=== PATIENT | female | born 1955 | race Caucasian/White ===

== ENCOUNTER 2019-08-23 15:30 | Outpatient (RCR) | payer OTHER, SELFPAY ==
--- NOTE | 2019-07-27 13:22 | HP.PTEVAL_ITS ---
Patient's Visit Information MONIE RODRIGUEZ is a 63 year old F referred to Physical Therapy by Tre Tam DO with a diagnosis of L knee pain/ pain in L knee. Date of Evaluation: 07/27/19 Physical Therapist: TONJA Moctezuma - Visit Plan Frequency: 2x /Week Duration: 4 Weeks Plan: 2X/ week for 4 weeks for L hip and knee strengthening, L knee AROM, stairs and functional strength with HEP - Subjective Findings: Pt saw Dr Wright and he said that she has a torn meniscus and said to come to PT. She has limped through since April. She reports taht she feels the same now as she did in April. It hurts with walking, stairs, crossing knee. It is swollen all the time. He gave her an injection and it went down but only for a week or so. She is having lateral knee pain now and it used to medial knee pain. He was talking [address] surgery if it does not get better. Rolling over in bed hurts and sleeping with one knee on top of another increases pain. Balance is good. She orig hurt herself turning quick and knee twisted. - Pain L knee pain Pain Intensity (Out of 10): 3 - Objective Gait: Walk with a normal gait pattern. L knee AROM:-3 degrees to 111 degrees L knee flexion. R knee AROM: -1 degree to 139 degrees. LE MMT: B hip abd 4/5, B hip flex 4-/5, B hip ext 4/5. Pt is able to walk on heels and toes with slight increase pain in her R knee. Palpation: tender over the lateral aspect of the L knee above the joint line near the top of the L knee cap. Stairs: up and down recip with some difficulty ascending the stairs and slow quick to get off the L leg descending the stairs wtih a rail. Girth measurements: R 34.1, 37.5, 40.5 and L 35, 38.1, 40.2 - Goals Goal 1:: I HEP and H&W routine Goal Time Frame: 4-6 Weeks Goal 2:: Increase L knee AROM 0-120 degress Goal Time Frame: 4-6 Weeks Goal 3:: Be able to go up and down the stairs recip with 1 hand rail with a smooth pattern - Rehabilitation Potential Rehabilitation Potential: Good - Anticipated Interventions Patient/Client Instruction: Educate patient on: Condition, Plan of Care For the Purpose of:: To decrease pain, To decrease swelling/inflammation, To increase ROM, To improve nutrient delivery to tissue, To improve muscle performance and motor function, To improve ability to perform ADL's, To increase tolerance to activity/condition/position, To improve performance and independence with ADL's, To decrease level of supervision to perform tasks, To improve ability of physical actions for home/community/work/leisure, To increase flexibility/ROM Therapeutic Exercise to Include: Strength training, Balance training, Postural training, Flexibilty training, Gait and locomotor training, Passive ROM, Active ROM For the Purpose of:: To decrease pain, To decrease swelling/inflammation, To increase ROM, To improve nutrient delivery to tissue, To improve muscle performance and motor function, To improve ability to perform ADL's, To improve performance and independence with ADL's, To decrease level of supervision to perform tasks, To improve ability of physical actions for home/community/work/leisure, To improve gait and locomotor functions, To improve health of tissue, To decrease soft tissue restriction, To increase fl exibility/ROM, To improve balance IF ES: Yes Cryotherapy (ice pack, ice massage): Yes Thermo therapy (hot pack): Yes Ultrasound (thermal/non thermal): Yes For the Purpose of:: To decrease pain, To decrease swelling/inflammation, To increase ROM, To improve nutrient delivery to tissue Thank you for the opportunity to evaluate your patient. For Medicare and Medicare HMO plans, please review the plan of care and approve it. It will need to be FAXED BACK to us at [phone] for Medicare purposes. For Medicare only, by signing this I certify the plan of care. Please let me know if there are questions or concerns regarding this plan of care. Physician Signature: Date:
--- NOTE | 2019-08-23 16:01 | HP.PTDCSUM ---
HP - PT D/C Summary It has been my pleasure to treat MONIE RODRIGUEZ under orders from Tre Tam DO, for the diagnosis of L knee pain/ pain in L knee for a total of 10 visit(s). Discharge Date: 08/23/19 Please see the following information for a summary of their discharge status. - Subjective Subjective: Pt reports that the last 3 days have been the worst. She is tired of being pain. It felt a little painful when she left PT. Climbing the stairs is the worst. She reports that she was lying on the couch this morning and she turned her leg and it grabbed her. She was hoping that PT would fix it. She thinks that it is time to get an MRI or see the Dr again. Her knee is pretty tight with swelling... Just has been doing her ususal activities. - Pain L knee pain Pain Intensity (Out of 10): 3 - Overall Improvement % Improvement: 0 - Objective Objective/Function: Re-eval: discussed going back to Dr and possible MRI as pt is no better and very frustrated. L knee AROM 130 degrees to 0 degrees extension. Stairs: decreased ability to go down stairs leading with the R leg and decreased bend with the R with pain. - Goals Goal 1:: I HEP and H&W routine Goal Progress: Goal Met Goal 2:: Increase L knee AROM 0-120 degress Goal Progress: Goal Met Goal 3:: Be able to go up and down the stairs recip with 1 hand rail with a smooth pattern Goal Progress: Not Progressing - Plan Plan: DC PT back to physician for possible MRI and physician reassessment - D/C Information Discharge Comments: DC PT If there are questions or concerns regarding this patient's physical therapy, please feel free to call me at [phone]. Thank you for the referral of this patient. Sincerely, Emily Lujan, MPT
== END 2019-08-23 19:00 | disposition home or self-care (01) ==
LOC: PT 15:30
PROVIDERS: Family Provider Family Medicine; PCP Family Medicine; Referring Provider Family Medicine; Visit Provider Family Medicine
DX: M25.562 Pain in left knee (principal)
CPT/HCPCS: 97110; 97161; 97164

== ENCOUNTER 2021-06-16 21:38 | Emergency (ER) | payer OTHER, SELFPAY ==
[2021-06-16 21:39] VITALS: BP 187/99; PULSE 85; RESP 15; TEMP 36.6; O2SAT 98; BMI 25.5
[2021-06-16 23:48] VITALS: O2SAT 97
--- NOTE | 2021-06-16 23:49 | EDS_ITS ---
HPI History of Present Illness Chief Complaint: Hypertension Narrative Narrative: 64-year-old female presenting with elevated blood pressure. She states she noted it was elevated at home. She took her lisinopril 10 mg before coming to the ER. She takes 10 mg p.o. twice daily. She has not had any recent changes to this. She states she does have stress in her life and she notes that 2 people have just left the hospital that were close to her. In addition to this she has developed sinus infection symptoms she believes. She states she gets this every year about the same time. She does not have a headache, dizziness, lightheadedness, change in vision. She denies chest pain, pa lpitations, shortness of breath. She is not had fever or chills. Patient states he is eating and drinking normally. She make normal urine and stool [facility] Medical History Hip replacement planned HTN (hypertension) Home Medications amoxicillin-pot clavulanate [Augmentin] 1 tab PO BID #20 tab 06/16/21 [Rx Last Taken Unknown] ergocalciferol (vitamin D2) 06/16/21 [History Last Taken Unknown] lisinopril 10 mg PO BID 06/16/21 [History Last Taken Unknown] meloxicam 7.5 mg PO DAILY 06/16/21 [History Last Taken Unknown] Allergy/AdvReac Type Severity Reaction Status Date / Time aspirin [From Norgesic] AdvReac Anaphylaxis Verified 06/16/21 21:44 caffeine [From Norgesic] AdvReac Anaphylaxis Verified 06/16/21 21:44 naproxen [From Aleve] AdvReac Anaphylaxis Verified 06/16/21 21:44 orphenadrine [From Norgesic] AdvReac Anaphylaxis Verified 06/16/21 21:44 Social History Smoking Status: Never smoker ROS ROS ED Constitutional Constitutional ED: Denies chills, fever(s) or sweats Eyes Eyes: Denies blurry vision or change in vision ENT ENT ED: Reports nasal congestion; Denies ear pain or sore throat Cardiovascular Cardiovascular: Denies chest pain, palpitations or racing heartbeat Respiratory/Chest Respiratory/Chest: Denies cough, dyspnea or sputum Gastrointestinal Gastrointestinal: Denies abdominal pain, constipation, diarrhea, nausea or vomiting Genitourinary Genitourinary ED: Denies dysuria, hematuria or urinary frequency Musculoskeletal Musculoskeletal: Denies arthralgias, myalgias or neck pain Integumentary Denies abscess, Abrasions or rash Neurologic Neurologic: Denies headache(s), paresthesias or weakness Psychiatric Psychiatric: Denies anxiety, depression, suicidal ideation or suicidal thoughts Endocrine Endocrinology: Denies polydipsia or polyuria EXAM Physical Exam Const Vital Signs: 06/16/21 21:39 06/16/21 21:57 06/16/21 23:48 Temperature 97.9 F Temperature Source Temporal Pulse Rate 85 Respiratory Rate 15 Respiratory Effort Normal Non-Labored Respiratory Pattern Normal Blood Pressure 187/99 H Blood Pressure Mean 128 Pulse Ox 98 97 Oxygen Delivery Method Room Air Room Air Positive well nourished and alert General Appearance ED: Negative for pallor HEENT Reports normocephalic, head/scalp atraumatic and moist mucous membranes Eyes PERRL and EOMs intact bilaterally Resp normal respiratory effort Effort and Inspection: able to speak in complete sentences Cardio regular rate Narrative: Deferred Neuro oriented x3 and CN's II-XII intact bilaterally Sensorium / Orientation: alert Psych mental status grossly normal and thought process normal Appearance: grossly normal Attitude: No agitated Skin no rashes or lesions noted General Skin Exam: Negative for jaundice or pallor MDM MDM MDM Narrative Medical decision making narrative: Patient presenting with elevated blood pressure. Other than some sinus congestion she does not have any severe symptoms of an elevated blood pressure. She does have stressors in her life which could be contributing to her blood pressure. Is also possible that her sinus congestion could be doing this. She is not taking any oral cough or cold medicine. She has been using Afrin which could be contributing to her blood pressure as well. Since she is not having severe symptoms I did recommend that she double her dose of lisinopril tonight and recheck her blood pressures in the morning and keep a diary of her blood pressures. She states that she currently takes her lisinopril twice daily because 1 dose a day does not seem to control her blood pressures as well. If her blood pressures are elevated in the evening tomorrow when she checks her blood pressure she likely will need to double her dose of medication. I also did speak with her about her sinus congestion and she does not want to be tested for COVID-19. She is not have any severe symptoms from a viral/respiratory standpoint either. I did cemetery counselor her that 2 d ays of symptoms would not warrant antibiotics. She was concerned that over the weekend this might worsen.. I provided her with a [id number] prescription for Augmentin in case her symptoms should worsen and she is lost to follow-up with her primary care physician. After my initial evaluation the patient did tell nursing staff that she was upset because we did not do anything other than check her blood pressure. I did return to the room and apologized to her. I did reexplain again that she is not having severe symptoms of her elevated blood pressure and that normal course of action would be to increase her blood pressure medicine and monitor it to make sure it is going down. Impression: 1. Elevated blood pressure established?[id number] 2. Sinusitis Discharge Plan Triage Chief Complaint: Hypertension ED Provider: Lior Carter Dx/Rx/DC Orders Instructions: ED Hypertension, Established, ED Sinusitis (Antibiotic Treatment) Prescriptions: New amoxicillin-pot clavulanate [Augmentin] 875-125 mg tablet 1 tab PO BID Qty: 20 RF: 0 No Action meloxicam 7.5 mg Tablet 7.5 mg PO DAILY RF: 0 lisinopril 10 mg Tablet 10 mg PO BID RF: 0 ergocalciferol (vitamin D2) 1,250 mcg (50,000 unit) capsule RF: 0 Primary Care Provider: Tre Tam Referrals: Tre Tam DO [Primary Care Provider] - Disposition Disposition: Home, Self Care
[2021-06-16 23:54] VITALS: BP 184/99
--- NOTE | 2021-06-16 23:54 | ED.RN ---
pt voiced being upset with more testing not being done while in the ED. spoke with Dr. Carter. He returned to room to talk with patient and provide education and reassurance. This RN spent time listening to patient's concerns. Patient also okay with RN reaching out to Patient Advocate about her interaction with the physician.
== END 2021-06-17 00:09 | disposition home or self-care (01) ==
LOC: ED 23:04
PROVIDERS: Emergency Provider Student in an Organized Health Care Education/Training Program; PCP Family Medicine
DX: I10 Essential (primary) hypertension (principal); J32.9 Chronic sinusitis, unspecified; Z79.1 Long term (current) use of non-steroidal anti-inflammatories (NSAID); Z79.82 Long term (current) use of aspirin
CPT/HCPCS: 99282

== ENCOUNTER 2022-01-07 16:46 | Outpatient (RCR) | payer OTHER, SELFPAY ==
--- NOTE | 2022-01-08 08:45 | HP.PTEVAL_ITS ---
Patient's Visit Information MONIE RODRIGUEZ is a 66 year old F referred to Physical Therapy by RAMON DURAN with a diagnosis of R hip bursitis. Date of Evaluation: 01/07/22 Physical Therapist: Pete Cote, PT, ATC - Visit Plan Frequency: 1-2x /Week Duration: 1 Week Plan: Pt was issued and reviewed HEP of R LE stretches for piriformis, hamstrings, hip flexors, and IT band. Pt to follow up or discharge with pt in one week. - Subjective Pt reports her R hip has been sore for the past 3 weeks. Pt reports she was visiting her daughter in [place] at that time and had been performing an increased walking load. Pt reports this pain causes her to have difficulty with car transfers and stair negotiation. Pt reports she had a R DARIO performed in 2017, and notes she had this pain in the past which PT did help with. Pt notes no tingling or numbness in LE's at this time. Pt reports she just finished a steroid pack that she reports did not help with her pains. Pt currently rates her pain at 5/10, but notes her pain increases to 9/10 when her hip catches - Pain R hip Pain Intensity (Out of 10): 5 Pain Intensity Range: 9 - Objective Neuro: B LE sensation is WNL to light touch. B patellar reflex= 2/3. Palpation: Pt is really sore on the anterior region of R hip. ROM: B LE's are WFL when compared bilaterally. MMT: R hip flex, ER, and add 4-/5. All other B LE MMT is 5/5 throughout. Flexibility: Pt is moderately limited with IT band, HS's, hip flexors, and piriformis muscles - Balance/Special Test Scores Lower Extremity Functional Score: 38 - Goals Goal 1:: Decrease R hip pain x 50% to aid with sit to stand transfers Goal Time Frame: 2-4 Weeks Goal 2:: I with HEP of LE stretching Goal Time Frame: 2-4 Weeks - Rehabilitation Potential Physical Therapy Diagnosis: Pt has R hip pain and difficulty with IADL's secondary to limited flexibility in R hip Rehabilitation Potential: Good - Anticipated Interventions Patient/Client Instruction: Educate patient on: Condition, Plan of Care For the Purpose of:: To improve self management Therapeutic Exercise to Include: Flexibilty training, Dynamic Lumbar Stabilization For the Purpose of:: To decrease pain, To improve muscle performance and motor function Manual Therapy Techniques to Include: Soft tissue mobilization For the Purpose of:: To decrease pain, To improve muscle performance and motor function Thank you for the opportunity to evaluate your patient. For Medicare and Medicare HMO plans, please review the plan of care and approve it. It will need to be FAXED BACK to us at [phone] for Medicare purposes. For Medicare only, by signing this I certify the plan of care. Please let me know if there are questions or concerns regarding this plan of care. Physician Signature: Date:
--- NOTE | 2022-03-27 12:37 | HP.PT.NRP ---
MONIE RODRIGUEZ was seen in my office for initial evaluation on 01/07/22. The following Plan of Care was established for this patient: Initial Frequency: 1-2x /Week Initial Duration: 1 Week Patient/Client Instruction: Educate patient on: Condition, Plan of Care For the Purpose of:: To improve self management Therapeutic Exercise to Include: Flexibilty training, Dynamic Lumbar Stabilization For the Purpose of:: To decrease pain, To improve muscle performance and motor function Manual Therapy Techniques to Include: Soft tissue mobilization For the Purpose of:: To decrease pain, To improve muscle performance and motor function This patient was last seen in our office . Pertinent comments regarding their Physical therapy will appear below: Pt was treated for R hip pain for 1 PT visits through the date of 01/07/22. Pt has not returned through todays date and is discontinued at this time. At this point I will be discontinuing this patient from physical therapy. I would be happy to see this patient again in the future if found appropriate by the physician. Thank you! Pete Cote, PT, ATC Balance/Gait/Functional tests - Balance/Special Test Scores Lower Extremity Functional Score: 38
== END 2022-01-07 19:00 | disposition home or self-care (01) ==
LOC: PT 16:46
PROVIDERS: PCP Family Medicine; Referring Provider Physician Assistant; Visit Provider Physician Assistant
DX: M70.71 Other bursitis of hip, right hip (principal); M70.61 Trochanteric bursitis, right hip
CPT/HCPCS: 97110; 97161

== ENCOUNTER 2022-03-28 10:00 | Outpatient (RCR) | payer OTHER, SELFPAY ==
--- NOTE | 2022-02-21 17:08 | HP.PTEVAL_ITS ---
Patient's Visit Information MONIE RODRIGUEZ is a 66 year old F referred to Physical Therapy by RENE WOLF with a diagnosis of spinal stenosis. Date of Evaluation: 02/21/22 Physical Therapist: Pete Cote, PT, ATC - Visit Plan Frequency: 1x/Week Duration: 2 Weeks Plan: Issue and instruct pt on HEP of core strengthening in 1-2 visits - Subjective Pt reports she was on meloxicam for years, and reports she was taken off of the medicine approximately 2 mos ago. Pt reports that is when she began to notice LBP. Pt reports she had x rays taken which revealed she has spinal stenosis at this time. Pt reports sitting and bending forwasrds increases her pain. Pt reports she is limited with house chores secondary to pain. Pt also notes she is limited with yard work at this time as well secondary to pain. Pt denies tingling or numbness in R LE at this time. Pt reports no sleep difficulty secondary to pain. Pt reports standing up straight helps to decrease her pain. Pt is retired at this time. 3/10 pain while sitting here in the clinic, 5/10 pain at worst (when she is bending over). - Pain LBP Pain Intensity (Out of 10): 3 Pain Intensity Range: 5 - Objective Neuro: B LE sensation is WNL to light touch. B patellar reflex= 2/3. ROM: L/S is minimally limited with ext. All other ranges are rated at WFL. MMT: B LE's are 5/5 throughout when compared bilaterally. Repeated movements: RFIS 10x3 increased pain. ROXIE 10x3 increased pain. prone prop on elbows 30 sec x 3 increased pain. Gait: Pt displays sig valgus with forward lunge indicating weak core musculature - Balance/Special Test Scores Oswestry Low Back Score: 11 - Goals Goal 1:: Pt will be I with HEP of core strengthening Goal Time Frame: 2 Weeks - Rehabilitation Potential Physical Therapy Diagnosis: Pt has LBP and difficulty with prolonged sitting secondary to Rehabilitation Potential: Good - Anticipated Interventions Patient/Client Instruction: Educate patient on: Condition, Plan of Care For the Purpose of:: To improve self management Therapeutic Exercise to Include: Strength training, Endurance training, Postural training, Dynamic Lumbar Stabilization For the Purpose of:: To decrease pain, To improve muscle performance and motor function Thank you for the opportunity to evaluate your patient. For Medicare and Medicare HMO plans, please review the plan of care and approve it. It will need to be FAXED BACK to us at [phone] for Medicare purposes. For Medicare only, by signing this I certify the plan of care. Please let me know if there are questions or concerns regarding this plan of care. Physician Signature: Date:
--- NOTE | 2022-06-18 14:44 | HP.PT.NRP ---
MONIE RODRIGUEZ was seen in my office for initial evaluation on 02/21/22. The following Plan of Care was established for this patient: Initial Frequency: 1x/Week Initial Duration: 2 Weeks Patient/Client Instruction: Educate patient on: Condition, Plan of Care For the Purpose of:: To improve self management Therapeutic Exercise to Include: Strength training, Endurance training, Postural training, Dynamic Lumbar Stabilization For the Purpose of:: To decrease pain, To improve muscle performance and motor function This patient was last seen in our office . Pertinent comments regarding their Physical therapy will appear below: Pt was treated for spinal stenosis for 4 PT visits through the date of 03/28/22. Pt has not returned through this date and is discontinued at this time. At this point I will be discontinuing this patient from physical therapy. I would be happy to see this patient again in the future if found appropriate by the physician. Thank you! Pete Cote, PT, ATC Balance/Gait/Functional tests - Balance/Special Test Scores Oswestry Low Back Score: 11
== END 2022-03-28 19:00 | disposition home or self-care (01) ==
LOC: PT 10:00
PROVIDERS: PCP Family Medicine
DX: M48.061 Spinal stenosis, lumbar region without neurogenic claudication (principal)
CPT/HCPCS: 97110; 97161

== ENCOUNTER 2022-11-28 13:00 | Outpatient (RCR) | payer MEDICARE, OTHER, SELFPAY ==
--- NOTE | 2022-10-03 10:21 | HP.PTEVAL ---
Patient's Visit Information MONIE RODRIGUEZ is a 66 year old F referred to Physical Therapy by Dr. Tina Whitley DO with a diagnosis of RT shoulder and neck pain. Date of Evaluation: 10/03/22 Physical Therapist: Pete Cote, PT, ATC - Visit Plan Frequency: 2-3x /Week Duration: 4 Weeks Plan: RRIS, postural edu, c/s DTR, scap stab ex's, rot cuff strengthening, UBE, and HEP - Subjective Pt reports she has had neck and R UE pain for several months. Pt reports she has sleep difficulty at this time secondary to pain. Pt reports for the last month or 2, her R shoulder has become sore and she is unable to lift her arm over her head. Pt reports she has sig difficulty with attempting to don/doff her coat. Pt notes she is R hand dominant. Pt reports she has pain in the right shoulder that will radiate to the lateral aspect of her L humerous near the deltoid insertion. Pt denies R UE tingling or numbness, but reports she did experience tingling and numbness a couple months ago on 2 separate episodes. Pt has had no recent diagnostic tests. 1/10 pain while sitting here in the clinic, 8/10 pain in the R shoulder at worst. - Pain R shoulder Pain Intensity (Out of 10): 0 Pain Intensity Range: 8 neck Pain Intensity (Out of 10): 0 Pain Intensity Range: 9 - Objective Neuro: B UE sensation is WNL to light touch. B bicipital reflex= 2/3. Palpation: point tender along the distribution of the supraspinatus. No obvious deformity. ROM: R shoulder flex= 120, abd= 140, ER= 65, IR; L shoulder flex= 150, abd= 150, ER= 60, IR WNL. MMT: R shoulder flex= 2, abd= 0, ER= 3, IR= 17 #F; L shoulder flex= 11, abd= 6.5, ER= 15, IR= 22 #F. Repeated movements: RPIS 10x2 NE, RRIS 10x2 resulted in full ROM to R shoulder. Special tests: POs empty can, pos HK - Balance/Special Test Scores Oswestry Neck Score: 17 - Goals Goal 1:: Decrease neck and R shoulder pain x 50% to aid with sleep Goal Time Frame: 4-6 Weeks Goal 2:: Increase R shoulder strength x 5-10 #F to aid with IADL's Goal Time Frame: 4-6 Weeks Goal 3:: Increase R shoulder ROM flex and abd x 20vith oerhead activity Goal Time Frame: 4-6 Weeks Goal 4:: I with HEP - Rehabilitation Potential Physical Therapy Diagnosis: Pt has R shoulder pain, weakness, and limited ROM secondary to rot cuff syndrome and pos c/s derrangement Rehabilitation Potential: Good - Anticipated Interventions Patient/Client Instruction: Educate patient on: Condition, Plan of Care For the Purpose of:: To improve self management Therapeutic Exercise to Include: Strength training, Endurance training, Body mechanics, Postural training, Dynamic Lumbar Stabilization, William Exercises, Scapular Strength/Stabilization For the Purpose of:: To decrease pain, To increase ROM, To improve muscle performance and motor function Cryotherapy (ice pack, ice massage): Yes Thermo therapy (hot pack): Yes For the Purpose of:: To decrease pain Thank you for the opportunity to evaluate your patient. For Medicare and Medicare HMO plans, please review the plan of care and approve it. It will need to be FAXED BACK to us at [phone] for Medicare purposes. For Medicare only, by signing this I certify the plan of care. Please let me know if there are questions or concerns regarding this plan of care. Physician Signature: Date:
--- NOTE | 2023-01-15 08:44 | HP.PT.NRP ---
Patient Information Patient Information: MONIE RODRIGUEZ was seen in my office for initial evaluation on 10/03/22. The following Plan of Care was established for this patient: POC Established Initial Frequency: 2-3x /Week Initial Duration: 4 Weeks Anticipated Interventions Patient/Client Instruction: Educate patient on: Condition and Plan of Care For the Purpose of:: To improve self management Therapeutic Exercise to Include: Strength training, Endurance training, Body mechanics, Postural training, Dynamic Lumbar Stabilization, William Exercises and Scapular Strength/Stabilization For the Purpose of:: To decrease pain, To increase ROM and To improve muscle performance and motor function Cryotherapy (ice pack, ice massage): Yes Thermo therapy (hot pack): Yes For the Purpose of:: To decrease pain Last Seen Last Seen: This patient was last seen in our office . Pertinent comments regarding their Physical therapy will appear below: Pt was treated for 8 PT visits for R shoulder pain through the date of 11/28/22. Pt has not returned through todays date and is discontinued at this time. At this point I will be discontinuing this patient from physical therapy. I would be happy to see this patient again in the future if found appropriate by the physician. Thank you! Pete Cote, PT, ATC Balance/Gait/Functional tests Balance/Special Test Scores Oswestry Neck Score: 17
== END 2022-11-28 19:00 | disposition home or self-care (01) ==
LOC: PT 13:00
PROVIDERS: PCP Family Medicine; Referring Provider Family Medicine; Visit Provider Family Medicine
DX: M54.2 Cervicalgia (principal); M25.511 Pain in right shoulder; M79.621 Pain in right upper arm
CPT/HCPCS: 97110; 97140; 97161; 97530

== ENCOUNTER 2024-03-02 10:00 | Outpatient (RCR) | payer MEDICARE, OTHER, SELFPAY ==
--- NOTE | 2024-01-27 08:52 | HP.PTEVAL_ITS ---
Patient's Visit Information Visit Information Visit Information: MONIE RODRIGUEZ is a 68 year old F referred to Physical Therapy by Dr. Tre Tam DO with a diagnosis of R sided neck pain. Date of Evaluation: 01/08/24 Physical Therapist: Jordi Cardoso DPT Visit Plan Frequency: 2x /Week Duration: 4 Weeks Plan: Start with cervical ROM, I gave her SNAGs into extension and rotation at eval. Consider DN to R UT or US to same region. Add in lateral and PA glides and rotation glides to assist with restoring ROM. Can add in soft tissue to R UT as well to diminish muscle tension. Subjective Subjective: Pt. is here today for her initial evaluation with neck pain. pt. reports having increased R sided neck pain for a few months now. She reports no mech of injury, but has had increased symptoms with looking over her shoulders, mostly to her R. Pt. has done some stretching with minimal relief. No chiro at this point in time. Pt. reports pain at R side of mid cervical spine and into her levator scapulae region. No N/T noted. Pt. does have some increased symptoms with sleeping, but mostly with cervical rotation. Pt. reports no radicular symptoms into UEs. Pt. reports no myotomal weakness either. Pt. is hopeful to reduce symptoms in order to increase her ease with driving and all ADLs. Pain R side of cervical spine: Pain Intensity (Out of 10): 3 Pain Intensity Range: 2 and 8 Objective Objective: POSTURE: pt. has fairly normal posture. Slight FH posture noted. Normal shoulder heights. PALPATION: Pt. has marked tenderness at C3-C5 R erector spinae at insertion. NEURO: Pt. has normal sensation in BUEs. Pt. has normal DTR of BUEs. No radicular symptoms noted. ROM: Cervical spine: flexion nil loss NE, ext min loss increase NW, Rotation R mod loss increase NW, rotation L min loss increase nW, SB min loss bilat mild increase NW. Thoracic spine mild extension loss but not much and no pain. Normal shoulder ROM without increase in symptoms. MMT: 5/5 throughout cervical spine and B shoulders without increase in symptoms. Pt. has signs and symptoms consistent with both some R sided muscular tension and possible radicular symptoms, but only into R side of UT. No major issues on L side of cervical spine. Special Tests C/S Radiculapathy - Left Upper limb tension test: Negative C/S Radiculapathy - Right Upper limb tension test: Negative C/S Radiculapathy - Left Spurlings: Negative C/S Radiculapathy - Right Spurlings: Negative C/S Radiculapathy - Left Cervical distraction: Negative C/S Radiculapathy - Right Cervical distraction: Negative C/S Radiculapathy - Left Relief test: Negative C/S Radiculapathy - Right Relief test: Negative C/S Radiculapathy - Valsalva: Negative Sharp Chan: Negative Vertebral Artery Test: Negative Alar Ligament Test: Negative Cervical Sitting: Protrusion - Mechanical Response: No effect Cervical Sitting: Protrusion - Symptoms During Testing: No effect Cervical Sitting: Protrusion - Symptoms After Testing: No effect Cervical Sitting: Retraction - Mechanical Response: No effect Cervical Sitting: Retraction - Symptoms During Testing: Increases Cervical Sitting: Retraction - Symptoms After Testing: No worse Cervical Sitting: Retraction-Extension - Mechanical Response: No effect Cerv Sitting: Retraction-Extension - Symptoms During Testing: Increases Cerv Sitting: Retraction-Extension - Symptoms After Testing: No worse Cervical Sitting: Sidebend Right - Mechanical Response: No effect Cervical Sitting: Sidebend Right - Symptoms During Testing: No effect Cervical Sitting: Sidebend Right - Symptoms After Testing: No effect Cervical Sitting: Sidebend Left - Mechanical Response: No effect Cervical Sitting: Sidebend Left - Symptoms During Testing: Increases Cervical Sitting: Sidebend Left - Symptoms After Testing: No worse Cervical Sitting: Rotation Right - Mechanical Response: No effect Cervical Sitting: Rotation Right - Symptoms During Testing: Increases Cervical Sitting: Rotation Right - Symptoms After Testing: No worse Cervical Sitting: Rotation Left - Mechanical Response: No effect Cervical Sitting: Rotation Left - Symptoms During Testing: No effect Cervical Sitting: Rotation Left - Symptoms After Testing: No effect Cervical Sitting: Flexion - Mechanical Response: No effect Cervical Sitting: Flexion - Symptoms During Testing: No effect Cervical Sitting: Flexion - Symptoms After Testing: No effect Balance/Special Test Scores Oswestry Neck Score: 20 Goals Goal 1:: LTG: Pt. to be I with HEP. Goal Time Frame: 4-6 Weeks Goal 2:: STG: pt. to have increased cervical ROM in all directions with out increase in symptoms. Goal Time Frame: 2 Weeks Goal 3:: LTG: Pt. to be able to drive without increase in R cervical spine pain. Goal Time Frame: 4-6 Weeks Goal 4:: LTG: Pt. to sleep without increase in symptoms. Goal Time Frame: 4-6 Weeks Rehabilitation Potential Physical Therapy Diagnosis: Pt. has signs and symptoms consistent with R sided cervical spine issues. Pt. has the greatest pain with R cervical rotation resulting in R sided neck pain. Pt. did not have nay radicular symptoms down her R arm at all, but was very sore with cervical rotation. Pt. would benefit from PT to address her muscle tension and limited ROM with cervical rotation and extension. Rehabilitation Potential: Good Anticipated Interventions Patient/Client Instruction: Educate patient on: Condition, Plan of Care, Risk Factors and Benefits of Fitness Program For the Purpose of:: To improve decision making, To facilitate caregiver knowle dge, To improve self management, To prevent re-injury and To improve ability to perform tasks related to life management Therapeutic Exercise to Include: Strength training, Power training, Postural training, Flexibilty training, Passive ROM, Active ROM, William Exercises and Scapular Strength/Stabilization For the Purpose of:: To decrease pain, To increase ROM, To increase oxygenation perfusion, To improve muscle performance and motor function, To improve ability to perform ADL's, To increase tolerance to activity/condition/position, To improve health of tissue, To decrease soft tissue restriction and To increase flexibility/ROM Manual Therapy Techniques to Include: Mobilization, Functional dry needling and Soft tissue mobilization For the Purpose of:: To decrease pain, To decrease swelling/inflammation, To increase ROM, To improve nutrient delivery to tissue and To increase oxygenation perfusion Ultrasound (thermal/non thermal): Yes For the Purpose of:: To decrease pain, To decrease swelling/inflammation, To increase ROM, To improve nutrient delivery to tissue and To increase oxygenation perfusion Text: Thank you for the opportunity to evaluate your patient. For Medicare and Medicare HMO plans, please review the plan of care and approve it. It will need to be FAXED BACK to us at [phone] for Medicare purposes. For Medicare only, by signing this I certify the plan of care. Please let me know if there are questions or concerns regarding this plan of care. Physician Signature: Date:
--- NOTE | 2024-03-02 11:08 | HP.PTDCSUM ---
Discharge Summary D/C summary: It has been my pleasure to treat MONIE RODRIGUEZ referred by Dr. Tre Tam DO, with the diagnosis of R sided neck pain for a total of 10 visit(s). Discharge Date: Please see the following information for a summary of their discharge status. Subjective Subjective: I am no better at this time Pain R side of cervical spine: Pain Intensity (Out of 10): 5 Overall Improvement % Improvement: 0 Objective Objective/Function: Neck pain is relatively unchanged. Pt is still limited with driving secondary to pain Pt is I with HEP at this time Pt is not progressing at this time Goals Goal 1:: LTG: Pt. to be I with HEP. Goal Progress: Goal Met Goal 2:: STG: pt. to have increased cervical ROM in all directions with out increase in symptoms. Goal Progress: Not Progressing Goal 3:: LTG: Pt. to be able to drive without increase in R cervical spine pain. Goal Progress: Not Progressing Goal 4:: LTG: Pt. to sleep without increase in symptoms. Goal Progress: Goal Met Plan Plan: Discontinue secondary to lack of progress, recommend pt to RTD D/C Information d/c sentence: If there are questions or concerns regarding this patient's physical therapy, please feel free to call me at [phone]. Thank you for the referral of this patient. Sincerely, Pete Cote, PT, ATC Balance/Gait/Functional tests Balance/Special Test Scores Oswestry Neck Score: 20 Improvement % Improvement: 0
== END 2024-03-02 13:17 | disposition home or self-care (01) ==
LOC: PT 10:00
PROVIDERS: PCP Family Medicine; Referring Provider Family Medicine; Visit Provider Family Medicine
DX: M54.2 Cervicalgia (principal)
CPT/HCPCS: 97035; 97110; 97140; 97161; 97530

== ENCOUNTER → 2024-03-27 | Outpatient (CLI) | payer OTHER, MEDICARE, SELFPAY ==
--- NOTE | 2024-03-27 09:03 | MRI_ITS ---
STUDY: MRI CERVICAL SPINE WITHOUT CONTRAST REASON FOR EXAM: Female, 68 years old. 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 COMPARISON: None FINDINGS: Normal foramen magnum and brainstem-cervical cord junction. Normal craniovertebral junction. Normal anterior atlantoaxial articulation. Normal odontoid process. Mild cervical kyphosis at the C4-C5 disc space level. No recent or remote fractures of the cervical spine. Normal vertebral body height. Multilevel asymmetric degenerative facet arthropathy. C2-3: Normal endplates. Normal disc height, signal and morphology. Normal central canal and intervertebral neural foramina. C3-4: Normal endplates. Normal disc height, signal and morphology. Normal central canal and intervertebral neural foramina. C4-5: Normal endplates. Minimal disc space height narrowing. Small osteophytes arising from the uncovertebral joints. Normal central canal and intervertebral neuroforamina. C5-6: Normal endplates. Mild disc space height narrowing. Normal central canal and intervertebral neuroforamina. C6-7: Minimal Modic type I-II degenerative vertebral marrow edema underneath the C6 inferior endplate. Small shallow Schmorl''s node in the C7 superior endplate. Moderate disc space height narrowing. Minimal ventral extradural defect due to minimal posterior marginal spur. Normal central canal and intervertebral neuroforamina.] C7-T1: Normal endplates. Normal disc height, signal and morphology. Normal central canal and intervertebral neural foramina. T1-T2: (Sagittal only). Normal endplates. Normal disc height, signal and morphology. Normal central canal and intervertebral neuroforamina. T2-T3: (Sagittal only). Normal endplates. Normal disc height, signal and morphology. Normal central canal and intervertebral neuroforamina. Round right sided upper T3 benign vertebral body hemangioma. T3-T4: (Sagittal only). Normal endplates. Normal disc height. Minimal ventral extradural defect due to small posterior bulging annulus and right posterior marginal spur. Normal central canal and left intervertebral neuroforamen. Mild stenosis of the right intervertebral neuroforamen due to right posterior marginal spur. T4-T5: (Sagittal only). Normal endplates. Mild disc space height narrowing. Normal central canal and intervertebral neuroforamina. Normal cervical cord. Normal upper thoracic spinal cord. Normal included midline brainstem and cerebellum. Normal visualized soft tissue structures. MRI/Spine Cervical (Routine) IMPRESSION: 1. No MRI evidence of cervical extruded disc fragment or disc protrusion, cervical spinal stenosis or cervical nerve root displacement. 2. Normal cervical spinal cord. Electronically Signed: Bairon Graff MD at 11:39 EDT ,
== END | disposition home or self-care (01) ==
LOC: MRI 08:35
PROVIDERS: PCP Family Medicine; Referring Provider Family Medicine; Visit Provider Family Medicine
DX: M47.812 Spondylosis without myelopathy or radiculopathy, cervical region (principal)
CPT/HCPCS: 72141

== ENCOUNTER 2025-05-30 07:38 | Inpatient (IN) | payer MEDICARE, OTHER, SELFPAY ==
[2025-05-30] VITALS (8 sets, daily range): BP systolic 118–157; BP diastolic 66–102; PULSE 79–105; RESP 16–18; TEMP 36.9–37.2; O2SAT 96–100; BMI 27.8; BMI 26.4
--- NOTE | 2025-05-30 07:51 | CT_ITS ---
PROCEDURE: ABDOMEN/PELVIS W IV CONT ONLY 05/30/2025 REASON FOR EXAM: ABDOMINAL PAIN Pelvic and abdominal pain. TECHNIQUE: Procedure Code: [id number] Modality: CT Procedure: ABDOMEN/PELVIS W IV CONT ONLY Coronal and Sagittal reconstruction series were provided. CONTRAST: Isovue-300 VOLUME: 100 mL One or more dose reduction techniques were used (e.g., Automated exposure control, adjustment of the mA and/or kV according to patient size, use of iterative reconstruction technique. RADIATION DOSE SUMMARY: CTDlvol: 13.3 mGy DLP: 988.75 mGycm COMPARISON: None FINDINGS: Lung bases: Mild dependent atelectasis Liver: Diffuse fatty infiltration. Borderline hepatomegaly. Gallbladder: Unremarkable Spleen: Normal size. Pancreas: Normal size without evidence of mass surrounding inflammation or ductal dilation. Adrenals: Unremarkable Kidneys: 6 mm nonobstructive calculus in the lower pole calyx of the left kidney. No evidence of hydronephrosis. Bladder: Unremarkable Reproductive Organs: Unremarkable Bowel: Sigmoid colon diverticula with wall thickening and adjacent inflammatory changes. No evidence of perforation or abscess. Appendix: Unremarkable Lymph nodes: Unremarkable. Vasculature: Mild diffuse atherosclerotic calcifications are noted. Peritoneum / Retroperitoneum: Unremarkable Bones: Degenerative changes of the spine. Status post right hip replacement. CT/Abdomen/Pelvis W IV Cont ONLY IMPRESSION: Borderline hepatomegaly and fatty infiltration of the liver. Findings in keeping with the sigmoid diverticulitis with multiple sigmoid diver ticula and inflammatory changes surrounding the sigmoid colon and mesentery. No evidence of fluid collection at this time. Reading Location: [facility]
--- NOTE | 2025-05-30 07:54 | EX.ED.DYSGE1 ---
HPI History of Present Illness Chief Complaint: Abd Pain Narrative Narrative: Chief complaint and HPI: 69-year-old female with past medical history of HTN who presents for evaluation of abdominal pain. Patient states yesterday she had suprapubic abdominal pain and dysuria. Endorses symptomatic fever overnight. States this morning she woke up with worsening diffuse abdominal pain. She denies any history of diverticulitis. Denies any abdominal surgeries. Last ate yesterday. Not on blood thinners. She denies any nausea, vomiting, constipation, bloody bowel movements, vaginal bleeding. Review of systems: See HPI Medications: As listed on the chart Allergies: As listed on the chart PFSH: Per chart Vital signs: As listed on the chart. Reviewed. Physical exam: Gen: A&O Head: Normocephalic, atraumatic Eyes: No sclera icterus, conjunctiva clear ENT: Moist mucous membranes CV: RRR, no murmurs Resp: Lungs CTA BL, no w/r/c GI: Abd soft, non-distended, tender to palpation diffusely with voluntary guarding, no rebound or rigidity Musc: Full ROM, no deformity Skin: Warm, dry Psych: Cooperative, appropriate mood and affect PFSH PFSH Medical History Hip replacement planned HTN (hypertension) Home Medications ?Medication ?Instructions ?Recorded ?Last Taken ?Type ergocalciferol (vitamin D2) 1,250 1,250 mcg PO .COMPLEX 06/16/21 05/18/25 History mcg (50,000 unit) capsule acetaminophen 500 mg capsule 1,000 mg PO Q6H PRN fever or pain 05/30/25 05/29/25 History lisinopril 40 mg tablet 40 mg PO DAILY 05/30/25 05/29/25 History magnesium 200 mg tablet 200 mg PO DAILY 05/30/25 05/28/25 History Allergy/AdvReac Type Severity Reaction Status Date / Time aspirin (From Norgesic) AdvReac Anaphylaxis Verified 05/30/25 07:42 caffeine (From Norgesic) AdvReac Anaphylaxis Verified 05/30/25 07:42 naproxen (From Aleve) AdvReac Anaphylaxis Verified 05/30/25 07:42 orphenadrine (From Norgesic) AdvReac Anaphylaxis Verified 05/30/25 07:42 Social History Smoking Status: Never smoker EXAM Physical Exam Const Vital Signs: 05/30/25 07:39 05/30/25 09:38 05/30/25 11:00 Temperature 98.4 F Temperature Source Temporal Pulse Rate 105 H 81 87 Respiratory Rate 18 18 16 Blood Pressure 151/102 H 147/71 H Blood Pressure Mean 118 96 Pulse Ox 97 96 100 Oxygen Delivery Method Room Air Room Air MDM MDM MDM Narrative Medical decision making narrative: 69-year-old female with past medical history of HTN who presents for evaluation of abdominal pain. Patient states yesterday she had suprapubic abdominal pain and dysuria. Endorses symptomatic fever overnight. States this morning she woke up with worsening diffuse abdominal pain. See physical exam findings. Differential diagnosis includes but is not limited to UTI, pyelonephritis, urolithiasis, diverticulitis, appendicitis, pancreatitis. NS bolus, morphine, Zofran ordered for symptoms. Laboratory workup ordered including CT abdomen and pelvis. CBC without leukocytosis or anemia. CMP unremarkable. Lipase unremarkable. CT abdomen pelvis shows borderline hepatomegaly and fatty infiltration of liver. Findings in keeping with sigmoid diverticulitis with multiple sigmoid diverticuli and inflammatory changes surrounding the sigmoid colon and mesentery. No evidence of fluid collection at this time. UA positive for UTI. Urine culture sent. On reevaluation, patient still having abdominal pain. She still voluntarily guards with diffuse palpation. Concern is that patient will fail outpatient antibiotics therefore general surgery was consulted. Dr. Alexandre will evaluate the patient. Will give more pain medicine and IV Zosyn. Dr. Alexandre came to bedside and evaluate the patient. He will admit. Impression: 1. Acute uncomplicated diverticulitis 2. UTI Lab Data Labs: Laboratory Results - last 24 hr 05/30/25 05/30/25 07:58 08:53 WBC 10.6 RBC 4.09 L Hgb 12.3 Hct 35.9 L MCV 87.8 MCH 30.1 MCHC 34.3 RDW Std Deviation 42.2 RDW Coeff of Ron 13.2 Plt Count 188 MPV 8.7 Immature Gran % (Auto) 0.400 Neut % (Auto) 84.5 H Lymph % (Auto) 6.7 L [place] % (Auto) 7.5 Eos % (Auto) 0.5 Baso % (Auto) 0.4 Absolute Neuts (auto) 9.0 H Absolute Lymphs (auto) 0.71 L Nucleated RBC % 0 Sodium 139 Potassium 4.0 Chloride 103 Carbon Dioxide 26.1 Anion Gap 10 BUN 12 Creatinine 0.76 Estim Creat Clear Calc 79.63 Est GFR (MDRD) Non-Af 86 BUN/Creatinine Ratio 15.2 Glucose 152 H Calcium 9.5 Total Bilirubin 0.67 AST 13 ALT 11 Alkaline Phosphatase 93 Total Protein 7.1 Albumin 4.1 Globulin 3.1 Albumin/Globulin Ratio 1.3 Lipase 22 Urine Color Yellow Urine Clarity Clear Urine pH 7.0 Ur Specific [place] 1.010 Urine Protein 15 H Urine Glucose (UA) Normal Urine Ketones Negative Urine Occult Blood 10 H Urine Nitrite Negative Urine Bilirubin Negative Urine Urobilinogen Normal Ur Leukocyte Esterase 500 H Urine RBC 0 SEEN Urine WBC 10-25 SEEN Ur Squamous Epith Cells 5-10 SEEN Urine Bacteria 1+ Urine Mucus 0 SEEN Radiography Diagnostic Testing: Clinical Impression(s) from Imaging Studies Abdomen/Pelvis CT 05/30/25 07:51 IMPRESSION: Borderline hepatomegaly and fatty infiltration of the liver. Findings in keeping with the sigmoid diverticulitis with multiple sigmoid diverticula and inflammatory changes surrounding the sigmoid colon and mesentery. No evidence of fluid collection at this time. Reading Location: [id number] Discharge Plan Triage Chief Complaint: Abd Pain ED Provider: Ralph Marquez Dx/Rx/DC Orders Prescriptions: No Action ergocalciferol (vitamin D2) 1,250 mcg (50,000 unit) capsule 1,250 mcg PO .COMPLEX Rx Instructions: 1,250 mcg orally [id number]; every 2 weeks lisinopril 40 mg tablet 40 mg PO DAILY acetaminophen 500 mg capsule 1,000 mg PO Q6H PRN (Reason: fever or pain) magnesium 200 mg tablet 200 mg PO DAILY Primary Care Provider: Tre Tam Referrals: Tre Tam DO [Primary Care Provider, Family Practice] Print Language: Occitan
[2025-05-30 08:07] LABS: Hematocrit 35.9 % (37-47); Hemoglobin 12.3 g/dL (12.0-15.0); Immature Granulocytes Count 0.040 X10^3/uL (0.0-0.0); Mean Corp Hgb Conc 34.3 g/dL (32-36); Mean Corpuscular Volume 87.8 fL (81-99); Mean Platelet Vol. 8.7 fl (6.2-12.0); NRBC Flagged by Analyzer 0 % (0-5); Platelet Count 188 K/mm3 (150-450); RBC Distribution Width CV 13.2 % (11.6-14.6); RBC Distribution Width SD 42.2 fl (35.1-43.9); Red Blood Count 4.09 M/mm3 (4.2-5.4); White Blood Count 10.6 K/mm3 (4.4-11.0)
[2025-05-30] MEDS: 0.9% Normal Saline (1000mL) 1,000 ML 999 ML IV (08:11)
[2025-05-30 08:31] LABS: AST(SGOT) 13 U/L (<=31); Alanine Aminotransfer ALT/SGPT 11 U/L (<=34); Albumin, Serum 4.1 g/dL (3.4-4.8); Alkaline Phosphatase 93 U/L (35-104); Anion Gap 10 (5-15); BUN 12 mg/dL (4-19); BUN/Creat Ratio 15.2 RATIO (10-20); Calcium,Total 9.5 mg/dL (7.6-11.0); Carbon Dioxide 26.1 mmol/L (21.0-32.0); Chloride 103 mmol/L (98-108); Estimated Creatinine Clearance 79.63 ml/min (50-250); Globulin 3.1 g/dL (2.2-4.2); Glucose 152 mg/dL (70-99); Lipase 22 U/L (13-75); Potassium 4.0 mmol/L (3.3-5.1)
--- OUTSIDE RECORDS SUMMARY | 2025-05-30 08:37 | XMS RPT_ITS | CCD ---
Author Organization [facility] Informat ion Partnership [facility] Care Team Providers Care Pest Control Specialist Name Role Phone Dexter Kevin MD Unavailable Tina Winkler DO Primary Care Provider ILIANA BARON Attending Unavailab le TINA WINKLER Primary Care Unavailable YONATAN DO, DR MICHI Cobb Primary Care Physician TINA WINKLER DO Attending Unavailable TINA WINKLER DO Consulting Unavailable TINA WINKLER DO Primary Care Unavailable TINA WINKLER DO Admitting Unavailable PROVIDER, UNKNOWN Consulting Unavailable PROVIDER, UNKNOWN Consulting Unavailable YONATAN DO, DR BORDEN A Primary Care Unavailkami ALICEA MD, DR DELAROSA Attending Unavailab le YONATAN DO, DR MICHI Cobb Attending Unavailabl e YONATAN DO, DR MICHI Cobb Primary Care Unavailabl e YONATAN DO, DR MICHI Cobb Primary Care Unavailabl e YONATAN DO, DR MICHI Cobb Attending Unavailabl e YONATAN DO, DR MICHI Cobb Primary Care Unavailabl e YONATAN DO, DR MICHI Cobb Attending Unavailabl e YONATAN DO, DR MICHI Cobb Primary Care Unavailabl antoine ALICEA MD, DR DELAROSA Attending Unavailab le YONATAN DO, DR MICHI Cobb Primary Care Unavailkami ALICEA MD, DR DELAROSA Attending Unavailab le YONATAN DO, DR MICHI Cobb Primary Care Unavailabl e YONATAN DO, DR MICHI Cobb Attending Unavailabl e YONATAN DO, DR MICHI Cobb Primary Care Unavailabl e YONATAN DO, DR MICHI Cobb Attending Unavailabl e YonatanMichi Referring Unavailable Yonatan, Michi Primary Care Unavailable YonatanMichi Attending Unavailable YonatanMichi Referring Unavailable Tina Winkler Primary Care Unavailable Michi Tam Attending Unavailable BAO GORDON Attending Unavailabl e YONATAN DO, DR MICHI Cobb Primary Care Unavailabl e YONATAN DO, DR MICHI Cobb Attending Unavailabl e YONATAN DO, DR MICHI Cobb Primary Care Unavailabl e YONATAN DO, DR MICHI Cobb Attending Unavailabl e YONATAN DO, DR MICHI Cobb Primary Care Unavailabl e Allergies Allergy Classification Reported Allergen(s) Allergy Type Date of Onset Reaction(s) Facility (1 source) naproxen Drug Allergy 7 hives, throat closes [facility] Work Phone: (1 source) NORGESICS drug allergy 7 hives, throat closes [facility] Work Phone: (2 sources) Aspirin Drug Allergy 1 Anaphylaxis [facility] (2 sources) Caffeine Drug Allergy 1 Anaphylaxis [facility] (9 sources) Naproxen; Translations: [naproxen] Drug Allergy 1 Anaphylaxis [facility] (2 sources) Orphenadrine Drug Allergy 1 Anaphylaxis [facility] (11 sources) Aspirin / Caffeine / Orphenadrine; Translations: [ORPHENADRINE- A-CAFFEINE] Drug Allergy 4 Anaphylaxis [facility] (4 sources) Naproxen; Translations: [NAPROXEN SODIUM] Drug Allergy 4 Anaphylaxis [facility] (1 source) Aspirin Drug Allergy 1 [facility] (1 source) Caffeine Drug Allergy 1 [facility] (1 source) Naproxen Drug Allergy 1 [facility] (1 source) Orphenadrine Drug Allergy 1 [facility] Medications Current Medications Medication Drug Class(es) Dates Sig (Normalized) Sig (Original) [id number] 200 actuat albuterol 0.09 mg/actuat metered dose inhaler (7 sources) beta2-Adrenergic Agonist Start: 11-12-2023 take 2 puff(s) by inhalation every four hours as needed for wheezing ProAir HFA MDI (90 mcg/inh) inhalation aerosol 2 puff(s), Inhalation, q4h, PRN as needed for wheezing, # 8.5 gram(s), 2 Refill(s), Pharmacy: [facility], 176, cm, 11/03/23 14:09:00 EDT, Height, kg, 11/03/23 14:09:00 EDT, Dosing Weight Start Date: 11/12/23 Status: Ordered Quantity: 8.5 Unit: g Repeat number: 3 Start: 01-08-2023 take 2 puff(s) by in halation every four hours as needed for wheezing ProAir HFA MDI (90 mcg/inh) inhalation aerosol 2 puff(s), Inhalation, q4h, PRN as needed for wheezing, # 8.5 gram(s), 2 Refill(s), Pharmacy: [facility], 174.5, cm, 12/11/22 15:56:00 EDT, Height Start Date: 01/08/23 Status: Ordered amoxicillin 875 mg / clavulanate 125 mg oral tablet (2 sources) Penicillin-class Antibacterial Start: 06-16-2021 take 1 tablet by mouth twice daily Amoxicillin-Pot Clavulanate (Augmentin) 875-125 mg tablet Active 1 TABLET PO TWICE A DAY June 16, 2021 1:00am cephalexin 500 mg oral capsule (1 source) Cephalosporin Antibacterial Start: 08-16-2024 End: 08-23-2024 cephalexin 500 mg oral capsule Dose : 500 mg = 1 cap(s), Oral, q8h, X 7 day(s), # 21 cap(s), 0 Refill(s), 08/23/24 4:01:00 PM EST, Pharmacy: [facility] #[id number], 174.5, cm, 08/16/24 15:29:00 EST, Height, 82.8, kg, 08/16/24 15:29:00 EST, Dosing Weight Start Date: 08/16/24 Stop Date: 08/23/24 Status: Ordered Quantity: 21.0 Unit: cap(s) Repeat number: 1 ergocalciferol 1.25 mg oral capsule (11 sources) Provitamin D2 Compound Start: 12-01-2024 take 1 capsule by mouth every other week ergocalciferol 50,000 intl units (1.25 mg) oral capsule See Instructions, 1 cap(s) Oral every other week, # 12 cap(s), 3 Refill(s), Pharmacy: [facility], 174.4, cm, 10/22/24 14:59:00 EDT, Height, kg, 10/22/24 14:59:00 EDT, Dosing Weight Start Date: 12/01/24 Status: Ordered Quantity: 12.0 Unit: cap(s) Repeat number: 4 Start: 11-12-2023 take 1 capsule by mo uth every other week ergocalciferol 50,000 intl units (1.25 mg) oral capsule See Instructions, 1 cap(s) Oral every other week, # 12 cap(s), 3 Refill(s), Pharmacy: [facility], 176, cm, 11/03/23 14:09:00 EDT, Height, kg, 11/03/23 14:09:00 EDT, Dosing Weight Start Date: 11/12/23 Status: Ordered Quantity: 12.0 Unit: cap(s) Repeat number: 4 Start: 02-06-2023 take 1 capsule by mo ut every other week ergocalciferol 50,000 intl units (1.25 mg) oral capsule See Instructions, 1 cap(s) Oral every other week, # 12 cap(s), 1 Refill(s), Pharmacy: [facility] #[id number], 176, cm, 02/06/23 10:29:00 EDT, Height, kg, 02/06/23 10:29:00 EDT, Dosing Weight Start Date: 02/06/23 Status: Ordered Start: 02-06-2023 [facility] ergocalciferol 50,000 intl units (1.25 mg) oral capsule See Instructions, 1 cap(s) Oral every other week, # 12 cap(s), 1 Refill(s), Pharmacy: [facility] #[id number], 176, cm, 02/06/23 10:29:00 EDT, Height, kg, 02/06/23 10:29:00 EDT, Dosing Weight Start Date: 02/06/23 Status: Ordered Start: 06-16-2021 Ergocalciferol (Vitamin D2) Active June 16, 2021 1:00am every 2 weeks Comment on above: Take 50,000 Units by mouth every 2 weeks. fluticasone propionate 0.05 mg/actuat metered dose nasal spray (2 sources) Corticosteroid Start: 4 take 100 ug nasal route twice daily Flonase 50 mcg/inh nasal spray 100 mcg Dose = 2 spray(s), Nostril, each, BID, # 15.8 mL, 0 Refill(s), Pharmacy: [facility] #[id number], Sinusitis, 174, cm, 04/23/24 11:28:00 EDT, Height, kg, 04/23/24 11:28:00 EDT, Dosing Weight Start Date: 04/23/24 Status: Ordered Quantity: 15.8 Unit: mL Repeat number: 1 Indications: Chronic sinusitis, unspecified; ipratropium bromide 0.021 mg/actuat metered dose nasal spray (1 source) Anticholinergic Start: 3 take 42 ug nasal route twice daily ipratropium 21 mcg/inh (0.03%) nasal spray 42 mcg Dose = 2 spray(s), Nostril, each, BID, # 30 mL, 2 Refill(s), Pharmacy: [facility] #[id number], 176, cm, 02/06/23 10:29:00 EDT, Height, kg, 02/06/23 10:29:00 EDT, Dosing Weight Start Date: 02/06/23 Status: Ordered lisinopril 40 mg oral tablet (10 sources) Angiotensin Converting Enzyme Inhibitor Start: 5 lisinopril 40 mg oral tablet Dose : 40 mg = 1 tab(s), Oral, Daily, # 90 tab(s), 3 Refill(s), Pharmacy: [facility] #[id number], 174.4, cm, 10/21/24 10:33:00 EDT, Height, kg, 10/21/24 10:33:00 EDT, Dosing Weight Start Date: 10/21/24 Status: Ordered Quantity: 90.0 Unit: tab(s) Repeat number: 4 Start: 10-23-2023 lisinopril 40 mg oral tablet Dose : 40 mg = 1 tab(s), Oral, Daily, # 100 tab(s), 0 Refill(s) Start Date: 10/23/23 Status: Ordered Quantity: 100.0 Unit: tab(s) Repeat number: 1 Start: 08-08-2023 lisinopril 20 mg oral tablet Dose : 20 mg = 1 tab(s), Oral, BID, # 180 tab(s), 3 Refill(s), Pharmacy: [facility], 176, cm, 07/03/23 14:56:00 EST, Height, kg, 07/03/23 14:56:00 EST, Dosing Weight Start Date: 08/08/23 Status: Ordered Start: 05-15-2023 lisinopril 40 mg oral tablet Dose : 40 mg = 1 tab(s), Oral, qDay, # 90 tab(s), 3 Refill(s), Pharmacy: [facility], HTN (hypertension), 176, cm, 02/20/23 13:13:00 EDT, Height, kg, 02/20/23 13:13:00 EDT, Dosing Weight Start Date: 05/15/23 Status: Ordered Start: 12-11-2022 lisinopril 40 mg oral tablet Dose : 40 mg = 1 tab(s), Oral, qDay, # 90 tab(s), 1 Refill(s), Pharmacy: [facility], HTN (hypertension), 174.5, cm, 12/11/22 15:56:00 EDT, Height Start Date: 12/11/22 Status: Ordered Start: 06-16-2021 take 10 mg by mouth twice emiliano y Lisinopril Active 10 MG PO TWICE A DAY June 16, 2021 1:00am Start: 10-29-2016 LISINOPRIL 10 MG TABS one tab twice daily LISINOPRIL [id number] Dexter Kevin MD magnesium oxide 250 mg oral tablet (3 sources) Start: 10-23-2023 take 1 tablet by mouth once daily Magnesium 250 mg tablet See Instructions, 1 tab(s) Oral qDay, packet(s), 0 Refill(s) Start Date: 10/23/23 Status: Ordered Repeat number: 1 meloxicam 7.5 mg oral tablet (3 sources) Nonsteroidal Anti-inflammatory Drug Start: 06-16-2021 take 7.5 mg by mouth once daily Meloxicam Active 7.5 MG PO DAILY June 16, 2021 1:00am Start: 01-06-2018 MELOXICAM 7.5 MG TABS one tablet as needed MELOXICAM [id number] Dexter Kevin MD nitroglycerin 0.4 mg sublingual tablet (1 source) Nitrate Vasodilator Start: 06-24-2023 nitroglycerin 0.4 mg sublingual tablet 0.4 mg Dose = 1 tab(s), Sublingual, q5min, PRN for chest pain, # 25 tab(s), 11 Refill(s), Pharmacy: [facility], 176, cm, 06/24/23 11:08:00 EST, Height, kg, 06/24/23 11:08:00 EST, Dosing Weight Start Date: 06/24/23 Status: Ordered Vitamin D and K oral tablet (2 sources) Start: 08-16-2024 take 1 tablet by mouth once Vitamin D and K oral tablet 0 Refill(s) Start Date: 08/16/24 Status: Ordered Repeat number: 1 Vitamin D3 (1 source) Start: 10-23-2023 take 1 tablet by mouth once daily Vitamin D3 See Instructions, 1 tab(s) Oral Daily, packet(s), 0 Refill(s) Start Date: 10/23/23 Status: Ordered zinc acetate 25 mg oral capsule (3 sources) Start: 10-23-2023 zinc (as acetate) 25 mg oral capsule See Instructions, 1 cap(s) Oral, packet(s), 0 Refill(s) Start Date: 10/23/23 Status: Ordered Repeat number: 1 Completed/Discontinued Medications Medication Drug Class(es) Dates Sig (Normalized) Sig (Original) ACETAMINOPHEN CAPS (1 source) Start: 02-25-2017 TYLENOL CAPS one to two caps as needed ACETAMINOPHEN CAPS [id number] Dexter Kevin MD benazepril hydrochloride 20 mg / hydroCHLOROthiazide 12.5 mg oral tablet (3 sources) Thiazide Diuretic, Angiotensin Converting Enzyme Inhibitor take 1 tablet by mouth twice daily Benazepril-hydroCH LOROthiazide 20-12.5 mg per tablet Take 1 tablet by mouth twice daily. 0 Active Comment on above: Take 1 tablet by vale twice daily. metoprolol tartrate 25 mg oral tablet (5 sources) beta-Adrenergic Shea Start: 10-24-2023 End: 10-24-2023 metoprolol tartrate 25 mg oral tablet Start: 10/24/23 5:00:00 AM EDT, Dose = 100 mg, = 4 tab(s), Oral, prep pharm, 1 dose(s), 10/24/23 5:00:00 EDT Notes: Take with food. Start Date: 10/24/23 Stop Date: 10/24/23 Status: Completed Start: 07-15-2023 metoprolol suc cinate 25 mg oral TABLET extended release Dose : 25 mg = 1 tab(s), Oral, qDay, Take 1 tab PO evening before procedure that is scheduled for 10/23, # 1 tab(s), 0 Refill(s), [facility]acy: [facility] #[id number], 176, cm, 07/03/23 14:56:00 EST, Height, kg, 07/03/23 14:56:00 EST, Dosing Weight Start Date: 07/15/23 Status: Ordered Start: 06-24-2023 metoprolol suc cinate 25 mg oral TABLET extended release Dose : 25 mg = 1 tab(s), Oral, qDay, Do not crush or chew (controlled release), # 30 tab(s), 6 Refill(s), Pharmacy: [facility], 176, cm, 06/24/23 11:08:00 EST, Height, kg, 06/24/23 11:08:00 EST, Dosing Weight Start Date: 06/24/23 Status: Ordered Start: 06-24-2023 Metoprolol Tar trate 25 mg oral tablet Dose : 25 mg = 1 tab(s), Oral, BID, as needed for palpitations, # 30 tab(s), 6 Refill(s), Pharmacy: [facility], 176, cm, 06/24/23 11:08:00 EST, Height, kg, 06/24/23 11:08:00 EST, Dosing Weight Start Date: 06/24/23 Status: Ordered [facility] Medication (3 sources) Start: 10-23-2023 Misc Medicatio n TMG take one tablet daily., 0 Refill(s), 79.5 Start Date: 10/23/23 Status: Ordered Repeat number: 1 Start: 10-23-2023 Misc Medicatio n TMG take one tablet daily., 0 Refill(s), 79.5 Start Date: 10/23/23 Status: Ordered niacin 500 mg extended release oral tablet (3 sources) Nicotinic Acid niacin 500 mg Tb ER Take by mouth daily at bedtime. 0 Active Comment on above: Take by mouth daily at bedtime. pantoprazole 40 mg delayed release oral tablet (1 source) Proton Pump Inhibitor Start: 02-24-2017 PROTONIX 40 MG TBEC takes 1 tablet once daily PANTOPRAZOLE SODIUM [id number] María Cantorbridget PLUNKETT Vitamin D2 50,000 intl units capsule (1 source) Start: 03-08-2020 End: 03-03-2021 Vitamin D2 50,000 intl units capsule Dose : 50,000 International_Unit = 1 cap(s), Oral, q2wk, Qevery other week, # 7 cap(s), 3 Refill(s), Pharmacy: [facility], 175.26, cm, 09/23/19 16:18:00 EDT, Height, kg, 09/23/19 16:18:00 EDT, Dosing Weight Start Date: 03/08/20 Stop Date: 03/03/21 Status: Ordered Problems Active Problems Problem Classification Problem Date Documented Date Episodic/Chronic Cardiac dysrhythmias (5 sources) Palpitations 06-24-2023 Episodic Chronic kidney disease (1 source) Chronic kidney disease stage 3 11-03-2023 Chronic Conduction disorders (5 sources) Right bundle branch block 06-24-2023 Chronic Coronary atherosclerosis and other heart disease (2 sources) Coronary arteriosclerosis 11-17-2023 Chronic Diabetes mellitus without complication (6 sources) Hyperglycemia 02-06-2023 Episodic Disorders of lipid metabolism (12 sources) Mixed hyperlipidemia; Translations: [Dyslipidemia] 09-23-2019 Chronic Essential hypertension (10 sources) Hypertensive disorder; Translations: [Essential (primary) hypertension] Onset: 03-24-2014 03-24-2014 Chronic Heart valve disorders (3 sources) Mitral valve prolapse 02-06-2017 Chronic Immunizations and screening for infectious disease (6 sources) Raised antinuclear antibody 02-06-2023 Episodic Nonspecific chest pain (6 sources) Chest pain, unspecified; Translations: [Atypical chest pain] Onset: 08-31-2022 06-24-2023 Episodic Nutritional deficiencies (9 sources) Vitamin D deficiency; Translations: [Vitamin D deficiency, unspecified] Onset: 03-24-2014 03-24-2014 Chronic Osteoarthritis (15 sources) Unilateral primary osteoarthritis, right hip; Translations: [Arthritis] Onset: 10-29-2016 10-29-2016 Chronic Other aftercare (1 source) Aftercare following joint replacement surgery; Translations: [Aftercare following joint replacement surgery] Onset: 02-25-2017 02-25-2017 Chronic Other connective tissue disease (7 sources) 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 Other injuries and conditions due to external causes (1 source) Hamstring injury; Translations: [Other specified enthesopathies of right lower limb, excluding foot] Onset: 01-06-2018 01-06-2018 Episodic Other lower respiratory disease (5 sources) Dyspnea on exertion 06-24-2023 Episodic Other screening for suspected conditions (not mental disorders or infectious disease) (1 source) Abnormal results of kidney function studies; Translations: [Abnormal results of kidney function studies] Onset: 11-12-2023 Episodic Spondylosis; intervertebral disc disorders; other back problems (3 sources) Spondylosis without myelopathy or radiculopathy, cervical region; Translations: [Cervical spondylosis] Onset: 04-19-2024 06-24-2024 Chronic Thyroid disorders (3 sources) Thyroid nodule; Translations: [Nontoxic single thyroid nodule] Onset: 03-24-2014 07-09-2021 Chronic Past or Other Problems Problem Classification Problem Date Documented Da te Episodic/Chronic Genitourinary symptoms and ill-defined conditions (2 sources) Painful micturition, unspecified; Translations: [Painful micturition, unspecified] Onset: 08-16-2024 Episodic Other bone disease and musculoskeletal deformities (3 sources) Osteopenia; Translations: [Other specified disorders of bone density and structure, unspecified site] Onset: 03-24-2014 07-09-2021 Episodic Other connective tissue disease (1 source) Trochanteric bursitis, right hip; Translations: [Trochanteric bursitis, right hip] Onset: 04-28-2017 04-28-2017 Episodic Sprains and strains (1 source) Strain of muscle, fascia and tendon of right hip, initial encounter; Translations: [Strain of muscle, fascia and tendon of right hip, initial encounter] Onset: 04-28-2017 04-28-2017 Episodic Unclassified (1 source) Problem Results Test Name Value Interpretation Reference Range Facility RFon 02-13-2025 Rheumatoid Factor <6.0 Normal <=5.9 [facility] Comment on above: Result Comment: RF I gM Antibody by Enzyme Immunoassay: Negative < or = 6 Positive > 6 A positive result indicates the presence of RF antibodies and suggests the possibility of rheumatoid arthritis. A negative result indicates no RF IgM antibody or levels below the negative cut-off of the assay. Results of this assay should be used in conjunction with clinical findings and other serological tests. These results were obtained with the Bid[employer] QUANTA Lite RF IgM LUI. RF IgM values obtained with different manufacturers' assay methods may not be used interchangeably. The magnitude of the reported IgM levels cannot be correlated to an endpoint titer. Performed By: #### V IDH, TSH, FT4 #### [place] [id number] #### CCP, MCRSO, RF #### [place] [address] CCPon 02-11-2025 Cyclic Citrullinated Peptide <20.0 Normal <=19.9 [facility] Comment on above: Result Comment: Cycl ic Citrullinated IgG Interpretation: Result Units Negative <20 Weak Positive 20-39 Moderate Positive 40-59 Strong Positive >=60 A positive result indicates the presence of IgG anti-CCP3 antibodies and suggests the possibility of RA. A negative result indicates no CCP3 antibody or levels below the negative cut-off of the assay. Results of this assay should be used in conjunction with clinical findings and other serological tests. These test results were obtained with the TurboTranslationsa Lite CCP3 IgG LUI. Anti-CCP values obtained with different manufacturers' assay methods may not be used interchangeably. Performed By: #### V IDH, TSH, FT4 #### [address] [address] #### CCP, MCRSO, RF #### [address] [address] FT4on 02-10-2025 Free T4 [Mass/Vol] 0.81 ng/dL Normal 0.76-1.46 [facility] Comment on above: Performed By: #### V IDH, TSH, FT4 #### [address] [address] #### CCP, MCRSO, RF #### [address] [address] LABORATORYOrdered By: SYSTEM SYSTEM on 02-10-2025 25-hydroxyvitamin D3 [Mass/Vol] 32.7 ng/mL Invalid Interpretation Code AO ADM SS Comment on above: Interpretive Data: I nterpretive Values Based on Total 25(OH) Vitamin D: Deficient <20 ng/mL Insufficient 20 - <30 ng/mL Sufficient 30-100 ng/mL Free T4 [Mass/Vol] 0.81 ng/dL Normal 0.76 - 1. 46 ng/dL AO ADM SS TPO Ab IA Qn 35 unit/mL Normal 0 - 60 unit/mL ADM SS TSH Qn 1.74 m[IU]/L Normal 0.36 - 3.74 mcIU/mL AO ADM SS TSHon 02-10-2025 TSH Qn 1.74 m[IU]/L Normal 0.36-3.74 [facility] Comment on above: Performed By: #### V IDH, TSH, FT4 #### [address] [address] #### CCP, MCRSO, RF #### [address] [address] VIDHon 02-10-2025 Vit. D 25-Hydroxy 32.7 ng/mL Normal [facility] Comment on above: Result Comment: Inte rpretive Values Based on Total 25(OH) Vitamin D: Deficient <20 ng/mL Insufficient 20 - <30 ng/mL Sufficient 30-100 ng/mL Performed By: #### V IDH, TSH, FT4 #### [address] [address] #### CCP, MCRSO, RF #### [address] [address] aTPOon 02-10-2025 anti-Thyroid Peroxidase 35 units/ml Normal 0-60 [facility] Comment on above: Performed By: #### V IDH, TSH, FT4 #### [address] [address] #### CCP, MCRSO, RF #### [facility] [address] [place] [address] .Auto Diffon 10-20-2024 Basophil, Absolute 0.0 10 3/mcL Normal 0.0-0.3 [facility] Comment on above: Performed By: #### G FR, CMP, CBC, TSH, A1C, LIPID, ADIFF, ANEU #### [address] [address] Basophils/100 WBC (Bld) 0.8 % Normal 0.0-2.5 [facility] Comment on above: Performed By: #### G FR, CMP, CBC, TSH, A1C, LIPID, ADIFF, ANEU #### [address] [address] Eosinophil, Absolute 0.1 10 3/mcL Normal 0.0-0.7 [facility] Comment on above: Performed By: #### G FR, CMP, CBC, TSH, A1C, LIPID, ADIFF, ANEU #### [address] [address] Eosinophils/100 WBC (Bld) 1.6 % Normal 0.0-6.0 [facility] Comment on above: Performed By: #### G FR, CMP, CBC, TSH, A1C, LIPID, ADIFF, ANEU #### [address] [address] Lymphocyte, Absolute 1.0 10 3/mcL Normal 0.9-4.3 [facility] Comment on above: Performed By: #### G FR, CMP, CBC, TSH, A1C, LIPID, ADIFF, ANEU #### [address] [address] Lymphocytes/100 WBC (Bld) 23.8 % Normal 20.0-40.0 [facility] Comment on above: Performed By: #### G FR, CMP, CBC, TSH, A1C, LIPID, ADIFF, ANEU #### [place] [address] [place], [place] [address] Monocyte, Absolute 0.3 10 3/mcL Normal 0.1-1.4 [facility] Comment on above: Performed By: #### G FR, CMP, CBC, TSH, A1C, LIPID, ADIFF, ANEU #### [address] [address] Monocytes/100 WBC (Bld) 7.8 % Normal 2.0-13.0 [facility] Comment on above: Performed By: #### G FR, CMP, CBC, TSH, A1C, LIPID, ADIFF, ANEU #### [place] [address] [place], [place] [address] Neutrophils/100 WBC (Bld) 66.0 % Normal 50.0-75.0 [facility] Comment on above: Performed By: #### G FR, CMP, CBC, TSH, A1C, LIPID, ADIFF, ANEU #### [address] [address] .GFRon 10-20-2024 Estimated Glomerular Filtration Rate 64 ml/min/1.73sqm Normal [facility] Comment on above: Result Comment: Stages of Chronic Kidney Disease (CKD) Stage Description eGFR(ml/min/1.73 sq.m.) CKD 1 Normal kidney function or >=90 normal kindney function with possible kidney damage (ex. Proteinuria) CKD 2 Kidney damage with mild loss 60-89 of kidney function CKD 3a Mild to moderate loss of kidney 45-59 function CKD 3b Moderate to severe loss of 30-44 of kindey function CKD 4 Severe loss of kidney function 15-29 CKD 5 Kidney failure <15 Note: (go live 2024) the eGFR calculation was updated to the 2020 CKD-EPI creatinine equation without a race factor to calculate the eGFR results. Performed By: #### V IDH, TSH, FT4 #### [address] [address] #### CCP, MCRSO, RF #### [facility] [address] [place] [address] .NEUABSon 10-20-2024 Neutrophil, Absolute 2.8 10 3/mcL Normal 2.3-8.1 [facility] Comment on above: Performed By: #### G FR, CMP, CBC, TSH, A1C, LIPID, ADIFF, ANEU #### [address] [address] A1Con 10-20-2024 Glucose [Mass/Vol] 131 mg/dL Normal [facility] Comment on above: Result Comment: Luna mated Average Glucose calculated by equation ((28.7xA1C)-46.7) Estimated average glucose (eAG) is a calculated value from Hemoglobin A1C and is branch service representative of the average blood glucose level in the last 2-3 month period. Normal range: less than 114 mg/dL Performed By: #### V IDH, TSH, FT4 #### [place] [address] #### CCP, MCRSO, RF #### [place] [address] HbA1c (Bld) [Mass fraction] 6.2 % Normal 4.3-6.4 [facility] Comment on above: Performed By: #### V IDH, TSH, FT4 #### [place] [address] #### CCP, MCRSO, RF #### [address] [address] CBCon 10-20-2024 Erythrocyte distribution width (RBC) [Ratio] 13.6 % Normal 11.5-15.5 [facility] Comment on above: Performed By: #### G FR, CMP, CBC, TSH, A1C, LIPID, ADIFF, ANEU #### [address] [address] Hematocrit (Bld) [Volume fraction] 37.6 % Normal 34.0-46.0 [facility] Comment on above: Performed By: #### G FR, CMP, CBC, TSH, A1C, LIPID, ADIFF, ANEU #### [place] [id number] Hgb 12.9 G/dL Normal 12.0-16.0 [facility] Comment on above: Performed By: #### G FR, CMP, CBC, TSH, A1C, LIPID, ADIFF, ANEU #### [address] [address] MCH (RBC) [Entitic mass] 29.8 pg Normal 27.0-33.0 [facility] Comment on above: Performed By: #### G FR, CMP, CBC, TSH, A1C, LIPID, ADIFF, ANEU #### [address] [address] MCHC 34.3 G/dL Normal 32.0-36.0 [facility] Comment on above: Performed By: #### G FR, CMP, CBC, TSH, A1C, LIPID, ADIFF, ANEU #### [address] [address] MCV (RBC) [Entitic vol] 87.0 fL Normal 80.0-99.0 [facility] Comment on above: Performed By: #### G FR, CMP, CBC, TSH, A1C, LIPID, ADIFF, ANEU #### [address] [address] Platelet 234 10 3/mcL Normal 150-450 [facility] Comment on above: Performed By: #### G FR, CMP, CBC, TSH, A1C, LIPID, ADIFF, ANEU #### [address] [address] Platelet mean volume (Bld) [Entitic vol] 7.3 fL Normal 6.6-10.5 [facility] Comment on above: Performed By: #### G FR, CMP, CBC, TSH, A1C, LIPID, ADIFF, ANEU #### [address] [address] RBC 4.32 10 6/mcL Normal 4.10-5.30 [facility] Comment on above: Performed By: #### G FR, CMP, CBC, TSH, A1C, LIPID, ADIFF, ANEU #### [address] [address] WBC 4.3 10 3/mcL Low 4.5-10.8 [facility] Comment on above: Performed By: #### G FR, CMP, CBC, TSH, A1C, LIPID, ADIFF, ANEU #### [address] [address] CMPon 10-20-2024 Albumin Level 4.0 G/dL Normal 3.4-4.8 [facility] Comment on above: Performed By: #### V IDH, TSH, FT4 #### [place] [address] #### CCP, MCRSO, RF #### [address] [address] Albumin/Globulin [Mass ratio] 1.1 {ratio} Normal 1.1-2.5 [facility] Comment on above: Performed By: #### V IDH, TSH, FT4 #### [place] [address] #### CCP, MCRSO, RF #### [address] [address] ALP [Catalytic activity/Vol] 89 U/L Normal 40-135 [facility] Comment on above: Performed By: #### V IDH, TSH, FT4 #### [place] [address] #### CCP, MCRSO, RF #### [address] [address] ALT [Catalytic activity/Vol] 21 U/L Normal 14-59 [facility] Comment on above: Performed By: #### V IDH, TSH, FT4 #### [place] [address] #### CCP, MCRSO, RF #### [address] [address] AST [Catalytic activity/Vol] 13 U/L Normal 10-40 [facility] Comment on above: Performed By: #### V IDH, TSH, FT4 #### [place] [address] #### CCP, MCRSO, RF #### [address] [address] Bili Total 0.6 mg/dL Normal 0.2-1.0 [facility] Comment on above: Result Comment: Use of this assay is not recommended for patients undergoing treatment with eltrombopag due to the potential for falsely elevated results. Performed By: #### V IDH, TSH, FT4 #### [place] [address] #### CCP, MCRSO, RF #### [place] [address] BUN/Creatinine Ratio 19 ratio Normal 7-27 [facility] Comment on above: Performed By: #### V IDH, TSH, FT4 #### [place] [address] #### CCP, MCRSO, RF #### [place] [id number] Calcium [Mass/Vol] 9.4 mg/dL Normal 8.4-10.2 [facility] Comment on above: Performed By: #### V IDH, TSH, FT4 #### [place] [address] #### CCP, MCRSO, RF #### [address] [address] Chloride [Moles/Vol] 102 mmol/L Normal 98-107 [facility] Comment on above: Performed By: #### V IDH, TSH, FT4 #### [place] [address] #### CCP, MCRSO, RF #### [address] [address] CO2 [Moles/Vol] 31 mmol/L Normal 23-31 [facility] Comment on above: Performed By: #### V IDH, TSH, FT4 #### [place] [address] #### CCP, MCRSO, RF #### [address] [address] Creatinine [Mass/Vol] 0.98 mg/dL Normal 0.55-1.02 [facility] Comment on above: Result Comment: Test ing performed on Siemens Dimension EXL analyzer using a modified kinetic Destiney technique. Performed By: #### V IDH, TSH, FT4 #### [address] [address] #### CCP, MCRSO, RF #### [address] [address] Electrolyte Balance 8.0 mEq/L Normal 4.0-15.[address] [facility] Comment on above: Performed By: #### V IDH, TSH, FT4 #### [place] [address] #### CCP, MCRSO, RF #### [address] [address] Globulin 3.5 G/dL Normal 1.5-3.8 [facility] Comment on above: Performed By: #### V IDH, TSH, FT4 #### [address] [address] #### CCP, MCRSO, RF #### [address] [address] Glucose [Mass/Vol] 119 mg/dL High 80-115 [facility] Comment on above: Performed By: #### V IDH, TSH, FT4 #### [place] [address] #### CCP, MCRSO, RF #### [address] [address] Potassium [Moles/Vol] 4.2 mmol/L Normal 3.5-5.1 [facility] Comment on above: Performed By: #### V IDH, TSH, FT4 #### [address] [address] #### CCP, MCRSO, RF #### [address] [address] Sodium [Moles/Vol] 141 mmol/L Normal 136-145 [facility] Comment on above: Performed By: #### V IDH, TSH, FT4 #### [address] [address] #### CCP, MCRSO, RF #### [address] [address] Total Protein 7.5 G/dL Normal 6.4-8.2 [facility] Comment on above: Performed By: #### V IDH, TSH, FT4 #### [place] [address] #### CCP, MCRSO, RF #### [address] [address] Urea nitrogen [Mass/Vol] 19 mg/dL High 7-18 [facility] Comment on above: Performed By: #### V IDH, TSH, FT4 #### [place] [address] #### CCP, MCRSO, RF #### [address] [address] LIPIDon 10-20-2024 Cholesterol [Mass/Vol] 337 mg/dL High 0-200 [facility] Comment on above: Result Comment: Chol esterol Reference Interval: Less than 200 Desirable 200-239 Borderline high risk 240 and above High risk Performed By: #### V IDH, TSH, FT4 #### [address] [address] #### CCP, MCRSO, RF #### [address] [address] Cholesterol in HDL [Mass/Vol] 60 mg/dL Normal 40-60 [facility] Comment on above: Performed By: #### V IDH, TSH, FT4 #### [address] [address] #### CCP, MCRSO, RF #### [address] [address] Cholesterol in LDL [Mass/Vol] 227 mg/dL High 0-130 [facility] Comment on above: Performed By: #### V IDH, TSH, FT4 #### [address] [address] #### CCP, MCRSO, RF #### [place] [address] Triglyceride [Mass/Vol] 250 mg/dL High 0-150 [facility] Comment on above: Result Comment: Trig lyceride Reference Interval: Less than 150 Normal 150-199 Borderline high risk 200-499 High risk 500 or higher Very high risk Performed By: #### V IDH, TSH, FT4 #### [address] [address] #### CCP, MCRSO, RF #### [place] [address] TSHon 10-20-2024 TSH Qn 1.99 m[IU]/L Normal 0.36-3.74 [facility] Comment on above: Performed By: #### V IDH, TSH, FT4 #### [place] [address] #### CCP, MCRSO, RF #### [place] [address] AMPICILLIN:SUSC:PT:ISOLATE:O RDQN:MICon 08-16-2024 Ampicillin MARIBELL [Susc] >100,000 cfu/ml Staphylococcus epidermidis [facility] Ampicillin MARIBELL [Susc]on Staphylococcus epidermidis Staphylococcus epidermidis [facility] Spine Cervical (Routine)on 0 03-27-2024 Spine Cervical (Routine) [facility] Imaging Services [address] [place] [id number] Spine Cervical (Routine) MR#: [id number] Acct: [id number] Name: CAYLA HICKEY GEOVANNY Rep #: [id number] : 1955 F 68 From: Bairon Graff MD PCP: Dr. Michi Tam, DO Status: REG CLI Study: Spine Cervical (Routine) Date of Exam: Exam# [id number] Ordering Dr: Michi Tam DO [id number] STUDY: MRI CERVICAL SPINE WITHOUT CONTRAST REASON FOR EXAM: Female, 68 years old. 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 COMPARISON: None FINDINGS: Normal foramen magnum and brainstem-cervical cord junction. Normal craniovertebral junction. Normal anterior atlantoaxial articulation. Normal odontoid process. Mild cervical kyphosis at the C4-C5 disc space level. No recent or remote fractures of the cervical spine. Normal vertebral body height. Multilevel asymmetric degenerative facet arthropathy. C2-3: Normal endplates. Normal disc height, signal and morphology. Normal central canal and intervertebral neural foramina. C3-4: Normal endplates. Normal disc height, signal and morphology. Normal central canal and intervertebral neural foramina. C4-5: Normal endplates. Minimal disc space height narrowing. Small osteophytes arising from the uncovertebral joints. Normal central canal and intervertebral neuroforamina. C5-6: Normal endplates. Mild disc space height narrowing. Normal central canal and intervertebral neuroforamina. C6-7: Minimal Modic type I-II degenerative vertebral marrow edema underneath the C6 inferior endplate. Small shallow Schmorl''s node in the C7 superior endplate. Moderate disc space height narrowing. Minimal ventral extradural defect due to minimal posterior marginal spur. Normal central canal and intervertebral neuroforamina.] C7-T1: Normal endplates. Normal disc height, signal and morphology. Normal central canal and intervertebral neural foramina. T1-T2: (Sagittal only). Normal endplates. Normal disc height, signal and morphology. Normal central canal and intervertebral neuroforamina. T2-T3: (Sagittal only). Normal endplates. Normal disc height, signal and morphology. Normal central canal and intervertebral neuroforamina. Round right sided upper T3 benign vertebral body hemangioma. T3-T4: (Sagittal only). Normal endplates. Normal disc height. Minimal ventral extradural defect due to small posterior bulging annulus and right posterior marginal spur. Normal central canal and left intervertebral neuroforamen. Mild stenosis of the right intervertebral neuroforamen due to right posterior marginal spur. T4-T5: (Sagittal only). Normal endplates. Mild disc space height narrowing. Normal central canal and intervertebral neuroforamina. Normal cervical cord. Normal upper thoracic spinal cord. Normal included midline brainstem and cerebellum. Normal visualized soft tissue structures. MRI/Spine Cervical (Routine) IMPRESSION: 1. No MRI evidence of cervical extruded disc fragment or disc protrusion, cervical spinal stenosis or cervical nerve root displacement. 2. Normal cervical spinal cord. Electronically Signed: Bairon Graff MD at 11:39 EDT , CC: Dr. Michi Tam DO Hospice Nurse Practitioner: Signed Normal [facility] PT D/C Summary (1)on [facility] PT D/C Summary (1) [facility] Physical Therapy [facility] [address] [place] [address] [address] [place] [address] / REHABILITATION SERVICES DISCHARGE SUMMARY MR#: [id number] Acct: [id number] Name: CAYLA HICKEY Rep #: [id number] : 1955 68 From: Pete Cote PT, ATC Referring DrGeorgina: Dr. Michi Tam DO Status: REG RCR Insurance: MEDICARE PART A B [facility] Discharge Summary D/C summary: It has been my pleasure to treat CAYLA MURRELLLAMARYARI referred by Dr. Michi Tam DO, with the diagnosis of R sided neck pain for a total of 10 visit(s). Discharge Date: Please see the following information for a summary of their discharge status. Subjective Subjective: I am no better at this time Pain R side of cervical spine: Pain Intensity (Out of 10): 5 Overall Improvement % Improvement: 0 Objective Objective/Function: Neck pain is relatively unchanged. Pt is still limited with driving secondary to pain Pt is I with HEP at this time Pt is not progressing at this time Goals Goal 1:: LTG: Pt. to be I with HEP. Goal Progress: Goal Met Goal 2:: STG: pt. to have increased cervical ROM in all directions with out increase in symptoms. Goal Progress: Not Progressing Goal 3:: LTG: Pt. to be able to drive without increase in R cervical spine pain. Goal Progress: Not Progressing Goal 4:: LTG: Pt. to sleep without increase in symptoms. Goal Progress: Goal Met Plan Plan: Discontinue secondary to lack of progress, recommend pt to RTD D/C Information d/c sentence: If there are questions or concerns regarding this patient's physical therapy, please feel free to call me at [phone]. Thank you for the referral of this patient. Sincerely, Pete Cote, PT, ATC Balance/Gait/Function al tests Balance/Special Test Scores Oswestry Neck Score: 20 Improvement % Improvement: 0 03/02/24 1108 CC: Dr. Michi Tam DO; Dr. Tina Winkler DO [facility] Signed Normal [facility] Inital Evaluation (1) - PTon 01-27-2024 Inital Evaluation (1) - PT [facility] Physical Therapy [facility] [address] [place] [address]. [address] [place] [address] / REHABILITATION SERVICES INITIAL EVALUATION MR#: [id number] Acct: [id number] Name: CAYLA HICKEY Rep #: [id number] : 1955 68 From: Jordi Cardoso DPT Referring Dr.: Dr. Michi Tam DO Status: REG RCR Insurance: MEDICARE PART A B [facility] Patient's Visit Information Visit Information Visit Information: CAYLA HICKEY is a 68 year old F referred to Physical Therapy by Dr. Michi Tam DO with a diagnosis of R sided neck pain. Date of Evaluation: 01/08/24 Physical Therapist: Jordi Cardoso DPT Visit Plan Frequency: 2x /Week Duration: 4 Weeks Plan: Start with cervical ROM, I gave her SNAGs into extension and rotation at eval. Consider DN to R UT or US to same region. Add in lateral and PA glides and rotation glides to assist with restoring ROM. Can add in soft tissue to R UT as well to diminish muscle tension. Subjective Subjective: Pt. is here today for her initial evaluation with neck pain. pt. reports having increased R sided neck pain for a few months now. She reports no mech of injury, but has had increased symptoms with looking over her shoulders, mostly to her R. Pt. has done some stretching with minimal relief. No chiro at this point in time. Pt. reports pain at R side of mid cervical spine and into her levator scapulae region. No N/T noted. Pt. does have some increased symptoms with sleeping, but mostly with cervical rotation. Pt. reports no radicular symptoms into UEs. Pt. reports no myotomal weakness either. Pt. is hopeful to reduce symptoms in order to increase her ease with driving and all ADLs. Pain R side of cervical spine: Pain Intensity (Out of 10): 3 Pain Intensity Range: 2 and 8 Objective Objective: POSTURE: pt. has fairly normal posture. Slight FH posture noted. Normal shoulder heights. PALPATION: Pt. has marked tenderness at C3-C5 R erector spinae at insertion. NEURO: Pt. has normal sensation in BUEs. Pt. has normal DTR of BUEs. No radicular symptoms noted. ROM: Cervical spine: flexion nil loss NE, ext min loss increase NW, Rotation R mod loss increase NW, rotation L min loss increase nW, SB min loss bilat mild increase NW. Thoracic spine mild extension loss but not much and no pain. Normal shoulder ROM without increase in symptoms. MMT: 5/5 throughout cervical spine and B shoulders without increase in symptoms. Pt. has signs and symptoms consistent with both some R sided muscular tension and possible radicular symptoms, but only into R side of UT. No major issues on L side of cervical spine. Special Tests C/S Radiculapathy - Left Upper limb tension test: Negative C/S Radiculapathy - Right Upper limb tension test: Negative C/S Radiculapathy - Left Spurlings: Negative C/S Radiculapathy - Right Spurlings: Negative C/S Radiculapathy - Left Cervical distraction: Negative C/S Radiculapathy - Right Cervical distraction: Negative C/S Radiculapathy - Left Relief test: Negative C/S Radiculapathy - Right Relief test: Negative C/S Radiculapathy - Valsalva: Negative Sharp Chan: Negative Vertebral Artery Test: Negative Alar Ligament Test: Negative Cervical Sitting: Protrusion - Mechanical Response: No effect Cervical Sitting: Protrusion - Symptoms During Testing: No effect Cervical Sitting: Protrusion - Symptoms After Testing: No effect Cervical Sitting: Retraction - Mechanical Response: No effect Cervical Sitting: Retraction - Symptoms During Testing: Increases Cervical Sitting: Retraction - Symptoms After Testing: No worse Cervical Sitting: Retraction-Extension - Mechanical Response: No effect Cerv Sitting: Retraction-Extension - Symptoms During Testing: Increases Cerv Sitting: Retraction-Extension - Symptoms After Testing: No worse Cervical Sitting: Sidebend Right - Mechanical Response: No effect Cervical Sitting: Sidebend Right - Symptoms During Testing: No effect Cervical Sitting: Sidebend Right - Symptoms After Testing: No effect Cervical Sitting: Sidebend Left - Mechanical Response: No effect Cervical Sitting: Sidebend Left - Symptoms During Testing: Increases Cervical Sitting: Sidebend Left - Symptoms After Testing: No worse Cervical Sitting: Rotation Right - Mechanical Response: No effect Cervical Sitting: Rotation Right - Symptoms During Testing: Increases Cervical Sitting: Rotation Right - Symptoms After Testing: No worse Cervical Sitting: Rotation Left - Mechanical Response: No effect Cervical Sitting: Rotation Left - Symptoms During Testing: No effect Cervical Sitting: Rotation Left - Symptoms After Testing: No effect Cervical Sitting: Flexion - Mechanical Response: No effect Cervical Sitting: Flexion - Symptoms During Testing: No effect Cervical Sitting: Flexion - Symptoms After Testing: No effect Balance/Special Test Scores Oswestry (more content not included)... Normal [facility] XR SPINE CERVICAL AP/LATon 0 01-08-2024 XR SPINE CERVICAL AP/LAT ORIGINAL EXAMINATION: 3 XRAY VIEWS OF THE CERVICAL SPINE 01/08/2024 4:19 pm COMPARISON: None. HISTORY: ORDERING SYSTEM PROVIDED HISTORY: Reason for Exam: chronic neck pain Chronic neck pain x2 years. No known injury IMPRESSION: Adequate visualization level of C7 on lateral films. There is straightening of the cervical spine with focal mild kyphotic deformity centered at C5. vertebral body heights are maintained. Multilevel [id number] degenerative disc disease worse in the mid cervical spine from C4 through C6. Trace retrolisthesis of C5 on C6. No acute fracture. Prevertebral soft tissues are within normal limits. Bony excrescence in the occipital region of the calvarium most likely enthesopathic. Dental amalgam. Interpreted by: Gretel Wiggins Preliminary Report By: Gretel Wiggins Electronically signed By Gretel Wiggins Dictated Date: 01/08/2024 7:48:44 PM Prelim Date: 01/08/2024 7:55:13 PM Sign Date: 01/08/2024 7:55:13 PM Ordering Provider: MICHI Lopez [facility] [place] CORONARY ANGIOGRAPHY W+W/ O CONTRASTon 2023 CT CORONARY ANGIOGRAPHY W+W/O CONTRAST ORIGINAL PATIENT NAME:CAYLA HICKEY : 1955 GENDER: Female ORDERING PROVIDER:WASHINGTON ALICEA CLINICAL STATEMENT: chest pain chest pain intermittent palpitations x 15 yrs worsening. TECHNIQUE: 1. Noncontrast CT of the heart was obtained for calcium scoring. 2. CTA with 110 c.c Omnipaque 350 IV contrast performed using prospective ECG gating about 1 cm above the AV to the diaphragm. FOV is very small to best evaluate the coronary arteries. Non-coronary chest anatomy is evaluated by Radiologist (Split read). Cumulative dose is 10.2 mSv 3. 3D postprocessing: MPR, MIP, +/- CPR, and volume rendering were performed. 4. This exam was performed according to our departmental dose optimization program, and includes the following measures where applicable: automated exposure control, adjustment of the mAs and/or kVp according to patient size and/or exam, and an iterative reconstruction algorithm. 5. This report adheres to SCCT / ACR / NASCI 2016 expert consensus document entitled, CAD-RADS(TM) Coronary Artery Disease - Reporting and Data System. MEDS: PO metoprolol (mg): \X09\50 mg IV metoprolol (mg): \X09\None Nitroglycerin (mg): \X09\0.4 SL COMPLICATIONS: None ACQUISITION HR (bpm): \X09\sinus 59, regular rhythm. TECHNICAL QUALITY: \X09\Good with minor artifact but good diagnostic quality. LIMITATIONS: \[id number]\None Abbreviations: LM: left main, RCA: right coronary artery, PDA: posterior descending artery, PLB: posterolateral branch, AM: acute marginal, LAD: left anterior descending, LCx: left circumflex artery, OM: obtuse marginal, Dx: diagonal, D1: first diagonal, D2: second diagonal, HR: heart rate, RI: ramus intermedius, PA: pulmonary artery FINDINGS: COMPARISON: None Most of the non-coronary chest anatomy is excluded in the FOV. CARDIAC FINDINGS: NON-CORONARY HEART: \X0909\Not enlarged. PERICARDIUM:\X09\Cont our preserved. No effusion. No thickening. No calcifications. AV: \[id number]\Tricuspid. No thickening. No calcifications. MV: \[id number]\No thickening. No calcifications. CORONARY CALCIUM SCORING Percentile (based on age/sex normogram): AGATSTON SCORE \X09\LM:\X09\0 \X09\LAD:\X09\227 \X09\LCx:\X09\88.6 \X09\RCA:\X09\31.4 \X09\TOTAL: 227 Calcium Volume (mm^3): Refer to PACS images for more information regarding calcium scoring ([email or web address]) DOMINANCE:\X09\Right ANATOMY:\X09\Normal origin and course. LM originates from L coronary sinus and RCA originates from R coronary sinus. LM gives rise to the LAD and LCx. . The LAD has diagonals. The LCX has obtuse marginals. The RCA gives rise to acute marginals, PDA and right posterolateral branches. Coronary CTA interpretation utilizes diagonal branches to segment the LAD (prox, mid, distal) rather than the septal branches (as used on conventional angiography) as the latter are too small to visualize on CTA consistently. Left main: Patent without stenosis LAD and diagonal branches: The proximal LAD has mild calcification with mild 10 to 15% stenosis. The mid and distal LAD are patent without stenosis. The relatively small first diagonal vessel is patent without stenosis. The proximal part of second large diagonal branch has mild calcification with mild 25 to 40% stenosis Left circumflex and obtuse marginal branches: The proximal left circumflex has mild calcification with 15 to 25% stenosis. The mid circumflex has mild calcification with 10 to 15% stenosis Right coronary artery, PDA, and posterior lateral branches: The proximal RCA has mild calcification with 10 to 15% stenosis. The mid RCA has non calcified plaque with 40 to 50% mild to moderate stenosis. The distal RCA is patent without stenosis NON-CARDIAC FINDINGS: [] Please see separate radiologist report IMPRESSION: 1. Noncardiac findings were independently reported by Radiologist. 2. CAD-RADS 3 3. Coronary circulation interpretation: Left main: Patent without stenosis LAD and diagonal branches: The proximal LAD has mild calcification with mild 10 to 15% stenosis. The mid and distal LAD are patent without stenosis. The relatively small first diagonal vessel is patent without stenosis. The proximal part of second large diagonal branch has mild calcification with mild 25 to 40% stenosis Left circumflex and obtuse marginal branches: The proximal left circumflex has mild calcification with 15 to 25% stenosis. The mid circumflex has mild calcification with 10 to 15% stenosis Right coronary artery, PDA, and posterior lateral branches: The proximal RCA has mild calcification with 10 to 15% stenosis. The mid RCA has non calcified plaque with 40 to 50% mild to moderate stenosis. The distal RCA is patent without stenosis 4. Agatston score: 277. Percentile (%): 91st for age and gender in asymptomatic individuals. CAD-RADS 3 Degree of Maximal Coronary Stenosis = 50-69% stenosis Interpretation = Moderate Stenosis Recommen (more content not included)... Normal [facility] [place] CORONARY EXTRACARDIACon 0 10-24-2023 CT CORONARY EXTRACARDIAC ORIGINAL EXAMINATION: CT THORAX WITH CONTRAST EXTRACARDIAC 10/24/2023 10:45 am TECHNIQUE: CT of the chest with the administration of intravenous contrast. Multiplanar reformatted images are provided for review. Automated exposure control, iterative reconstruction, and/or weight based adjustment of the mA/kV was utilized to reduce the radiation dose to as low as reasonably achievable. Cardiac images were obtained and reported separately in a report from cardiology. COMPARISON: 02/06/2017 HISTORY: ORDERING SYSTEM PROVIDED HISTORY: Reason for Exam: chest pain intermittent palpitations x 15 yrs worsening chest pain FINDINGS: The cardiac CT is reported separately by the cardiology service No suspicious findings seen in the visualized portion of the abdomen. A lymph node in the subcarinal space measures 1.1 cm in short axis. Other borderline lymph nodes are similar to the prior study.. No suspicious pulmonary nodules identified. No suspicious osseous lesion. IMPRESSION: 1. New borderline enlarged subcarinal space lymph node could be reactive. A 3 month follow-up CT advised 2. No suspicious pulmonary nodules identified. 3. The cardiac CT is reported separately by the cardiology service. Interpreted by: Bogdan San MD Preliminary Report By: Bogdan San MD Electronically signed By Bogdan San MD Dictated Date: 10/24/2023 4:01:49 PM Prelim Date: 10/24/2023 4:17:02 PM Sign Date: 10/24/2023 4:17:02 PM Ordering Provider: [place] Lopez [facility] ([place] .Auto Diffon 10-17-2023 Basophil, Absolute 0.0 10 3/mcL Normal 0.0-0.2 [facility] ([place] Comment on above: Performed By: #### C MP, ANEU, GFR, ADIFF, A1C, CBC #### [address] [address] Basophils/100 WBC (Bld) 0.8 % Normal 0.0-2.5 [facility] ([place] Comment on above: Performed By: #### C MP, ANEU, GFR, ADIFF, A1C, CBC #### [address] [address] Eosinophil, Absolute 0.1 10 3/mcL Normal 0.0-0.4 [facility] ([place] Comment on above: Performed By: #### C MP, ANEU, GFR, ADIFF, A1C, CBC #### [address] [address] Eosinophils/100 WBC (Bld) 1.9 % Normal 0.0-7.0 [facility] ([place] Comment on above: Performed By: #### C MP, ANEU, GFR, ADIFF, A1C, CBC #### [address] [address] Lymphocyte, Absolute 1.1 10 3/mcL Normal 0.8-3.9 [facility] ([place] Comment on above: Performed By: #### C MP, ANEU, GFR, ADIFF, A1C, CBC #### [address] [address] Lymphocytes/100 WBC (Bld) 25.5 % Normal 10.0-50.0 [facility] ([place] Comment on above: Performed By: #### C MP, ANEU, GFR, ADIFF, A1C, CBC #### [address] [address] Monocyte, Absolute 0.3 10 3/mcL Normal 0.2-1.0 [facility] ([place] Comment on above: Performed By: #### C MP, ANEU, GFR, ADIFF, A1C, CBC #### [address] [address] Monocytes/100 WBC (Bld) 6.7 % Normal 1.7-13.0 [facility] ([place] Comment on above: Performed By: #### C MP, ANEU, GFR, ADIFF, A1C, CBC #### [address] [address] Neutrophils/100 WBC (Bld) 65.1 % Normal 37.0-80.0 [facility] ([place] Comment on above: Performed By: #### C MP, ANEU, GFR, ADIFF, A1C, CBC #### [address] [address] .GFRon 10-17-2023 GFR 63 ml/min/1.73sqm Normal [facility] ([place] Comment on above: Result Comment: GFR Population mean for , Non- Americans Ages 20-29 = 116 mL/min/1.73 sq.m. Ages 30-39 = 107 mL/min/1.73 sq.m. Ages 40-49 = 99 mL/min/1.73 sq.m. Ages 50-59 = 93 mL/min/1.73 sq.m. Ages 60-69 = 85 mL/min/1.73 sq.m. Ages 70+ = 75 mL/min/1.73 sq.m. Chronic Kidney Disease: Less than 60 mL/min/1.73 square meters End Stage Renal Disease: Less than 15 mL/min/1.73 square meters Performed By: #### C MP, ANEU, GFR, ADIFF, A1C, CBC #### [address] [address] GFR Non- 52 ml/min/1.73sqm Normal [facility] ([place] Comment on above: Result Comment: GFR Population mean for , Non- Americans Ages 20-29 = 116 mL/min/1.73 sq.m. Ages 30-39 = 107 mL/min/1.73 sq.m. Ages 40-49 = 99 mL/min/1.73 sq.m. Ages 50-59 = 93 mL/min/1.73 sq.m. Ages 60-69 = 85 mL/min/1.73 sq.m. Ages 70+ = 75 mL/min/1.73 sq.m. Chronic Kidney Disease: Less than 60 mL/min/1.73 square meters End Stage Renal Disease: Less than 15 mL/min/1.73 square meters Performed By: #### C MP, ANEU, GFR, ADIFF, A1C, CBC #### [place] [address] .NEUABSon 10-17-2023 Neutrophil, Absolute 2.8 10 3/mcL Low 2.9-6.2 [facility] ([place] Comment on above: Performed By: #### C MP, ANEU, GFR, ADIFF, A1C, CBC #### [place] [address] A1Con 10-17-2023 HbA1c (Bld) [Mass fraction] 6.1 % Normal 4.3-6.4 [facility] ([place] Comment on above: Performed By: #### C MP, ANEU, GFR, ADIFF, A1C, CBC #### [place] [id number] CBCon 10-17-2023 Erythrocyte distribution width (RBC) [Ratio] 13.6 % Normal 11.5-14.5 [facility] ([place] Comment on above: Performed By: #### C MP, ANEU, GFR, ADIFF, A1C, CBC #### [place] [id number] Hematocrit (Bld) [Volume fraction] 37.7 % Normal 37.0-47.0 [facility] ([place] Comment on above: Performed By: #### C MP, ANEU, GFR, ADIFF, A1C, CBC #### [address] [address] Hgb 13.1 G/dL Normal 12.0-16.0 [facility] ([place] Comment on above: Performed By: #### C MP, ANEU, GFR, ADIFF, A1C, CBC #### [address] [address] MCH (RBC) [Entitic mass] 30.2 pg Normal 27.0-31.2 [facility] ([place] Comment on above: Performed By: #### C MP, ANEU, GFR, ADIFF, A1C, CBC #### [place] [address] MCHC 34.7 G/dL Normal 33.0-37.0 [facility] ([place] Comment on above: Performed By: #### C MP, ANEU, GFR, ADIFF, A1C, CBC #### [address] [address] MCV (RBC) [Entitic vol] 86.9 fL Normal 80.0-94.0 [facility] ([place] Comment on above: Performed By: #### C MP, ANEU, GFR, ADIFF, A1C, CBC #### [address] [address] Platelet 218 10 3/mcL Normal 130-400 [facility] ([place] Comment on above: Performed By: #### C MP, ANEU, GFR, ADIFF, A1C, CBC #### [address] [address] Platelet mean volume (Bld) [Entitic vol] 7.3 fL Low 7.4-10.4 [facility] ([place] Comment on above: Performed By: #### C MP, ANEU, GFR, ADIFF, A1C, CBC #### [address] [address] RBC 4.34 10 6/mcL Normal 4.20-5.40 [facility] ([place] Comment on above: Performed By: #### C MP, ANEU, GFR, ADIFF, A1C, CBC #### [address] [address] WBC 4.3 10 3/mcL Low 4.6-10.8 [facility] ([place] Comment on above: Performed By: #### C MP, ANEU, GFR, ADIFF, A1C, CBC #### [address] [address] CMPon 10-17-2023 Albumin Level 3.8 G/dL Normal 3.4-4.8 [facility] ([place] Comment on above: Performed By: #### C MP, ANEU, GFR, ADIFF, A1C, CBC #### [address] [address] Albumin/Globulin [Mass ratio] 1.2 {ratio} Normal 1.1-2.5 [facility] ([place] Comment on above: Performed By: #### C MP, ANEU, GFR, ADIFF, A1C, CBC #### [address] [address] ALP [Catalytic activity/Vol] 80 U/L Normal 40-135 [facility] ([place] Comment on above: Performed By: #### C MP, ANEU, GFR, ADIFF, A1C, CBC #### [address] [address] ALT [Catalytic activity/Vol] 19 U/L Normal 14-59 [facility] ([place] Comment on above: Performed By: #### C MP, ANEU, GFR, ADIFF, A1C, CBC #### [address] [address] AST [Catalytic activity/Vol] 10 U/L Normal 10-40 [facility] ([place] Comment on above: Performed By: #### C MP, ANEU, GFR, ADIFF, A1C, CBC #### [address] [address] Bili Total 0.5 mg/dL Normal 0.2-1.0 [facility] ([place] Comment on above: Result Comment: Use of this assay is not recommended for patients undergoing treatment with eltrombopag due to the potential for falsely elevated results. Performed By: #### C MP, ANEU, GFR, ADIFF, A1C, CBC #### [address] [address] BUN/Creatinine Ratio 12 ratio Normal 7-27 [facility] ([place] Comment on above: Performed By: #### C MP, ANEU, GFR, ADIFF, A1C, CBC #### [address] [address] Calcium [Mass/Vol] 9.1 mg/dL Normal 8.4-10.2 [facility] ([place]) Comment on above: Performed By: #### C MP, ANEU, GFR, ADIFF, A1C, CBC #### [address] [address] Chloride [Moles/Vol] 101 mmol/L Normal 98-107 [facility] ([place] Comment on above: Performed By: #### C MP, ANEU, GFR, ADIFF, A1C, CBC #### [address] [address] CO2 [Moles/Vol] 31 mmol/L Normal 23-31 [facility] ([place] Comment on above: Performed By: #### C MP, ANEU, GFR, ADIFF, A1C, CBC #### [address] [address] Creatinine [Mass/Vol] 1.06 mg/dL High 0.55-1.02 [facility] ([place] Comment on above: Performed By: #### C MP, ANEU, GFR, ADIFF, A1C, CBC #### [address] [address] Electrolyte Balance 8.0 mEq/L Normal 4.0-15.0 [facility] ([place] Comment on above: Performed By: #### C MP, ANEU, GFR, ADIFF, A1C, CBC #### [address] [address] Globulin 3.2 G/dL Normal [facility] ([place] Comment on above: Performed By: #### C MP, ANEU, GFR, ADIFF, A1C, CBC #### [address] [address] Glucose [Mass/Vol] 112 mg/dL Normal 80-115 [facility] ([place] Comment on above: Performed By: #### C MP, ANEU, GFR, ADIFF, A1C, CBC #### [address] [address] Potassium [Moles/Vol] 4.5 mmol/L Normal 3.5-5.1 [facility] ([place] Comment on above: Performed By: #### C MP, ANEU, GFR, ADIFF, A1C, CBC #### [address] [address] Sodium [Moles/Vol] 140 mmol/L Normal 136-145 [facility] ([place] Comment on above: Performed By: #### C MP, ANEU, GFR, ADIFF, A1C, CBC #### [address] [address] Total Protein 7.0 G/dL Normal 6.4-8.2 [facility] ([place] Comment on above: Performed By: #### C MP, ANEU, GFR, ADIFF, A1C, CBC #### [address] [address] Urea nitrogen [Mass/Vol] 13 mg/dL Normal 7-18 [facility] ([place] Comment on above: Performed By: #### C MP, ANEU, GFR, ADIFF, A1C, CBC #### [address] [address] XR ABDOMEN APon 10-17-2023 XR ABDOMEN AP ORIGINAL EXAMINATION: ONE SUPINE XRAY VIEW(S) OF THE ABDOMEN10/17/2023 10:38 am ABDOMEN 1 VIEW/KUB COMPARISON: None HISTORY: ORDERING SYSTEM PROVIDED HISTORY: Reason for Exam: abdominal pain; constipation FINDINGS: The abdominal bowel gas pattern is nonobstructive. No dilated bowel or air-fluid levels. No pneumoperitoneum. Normal stool volume. Right hip arthroplasty. Mild joint space loss seen in the left hip. Partially visualized right hip arthroplasty. There is likely a 3 mm calculus near the lower left kidney. IMPRESSION: Nonobstructive bowel gas pattern. Suspected small left renal calculus Interpreted by: Bogdan San MD Preliminary Report By: Bogdan San MD Electronically signed By Bogdan San MD Dictated Date: 10/17/2023 4:50:19 PM Prelim Date: 10/17/2023 4:51:52 PM Sign Date: 10/17/2023 4:51:52 PM Ordering Provider: MICHI TAM [facility] ([place]) .GFRon 06-24-2023 GFR 71 ml/min/1.73sqm Normal [facility] ([place] Comment on above: Result Comment: GFR Population mean for , Non- Americans Ages 20-29 = 116 mL/min/1.73 sq.m. Ages 30-39 = 107 mL/min/1.73 sq.m. Ages 40-49 = 99 mL/min/1.73 sq.m. Ages 50-59 = 93 mL/min/1.73 sq.m. Ages 60-69 = 85 mL/min/1.73 sq.m. Ages 70+ = 75 mL/min/1.73 sq.m. Chronic Kidney Disease: Less than 60 mL/min/1.73 square meters End Stage Renal Disease: Less than 15 mL/min/1.73 square meters Performed By: #### I BC, MG, FERR, PBNP, LIPID, TSH, GFR, BMP ####[id number] [place] [id number] GFR Non- 58 ml/min/1.73sqm Normal [facility] ([place] Comment on above: Result Comment: GFR Population mean for , Non- Americans Ages 20-29 = 116 mL/min/1.73 sq.m. Ages 30-39 = 107 mL/min/1.73 sq.m. Ages 40-49 = 99 mL/min/1.73 sq.m. Ages 50-59 = 93 mL/min/1.73 sq.m. Ages 60-69 = 85 mL/min/1.73 sq.m. Ages 70+ = 75 mL/min/1.73 sq.m. Chronic Kidney Disease: Less than 60 mL/min/1.73 square meters End Stage Renal Disease: Less than 15 mL/min/1.73 square meters Performed By: #### I BC, MG, FERR, PBNP, LIPID, TSH, GFR, BMP ####[address] [address] BMPon 06-24-2023 BUN/Creatinine Ratio 18 ratio Normal 7-27 [facility] ([place] Comment on above: Performed By: #### I BC, MG, FERR, PBNP, LIPID, TSH, GFR, BMP #### [address] [address] Calcium [Mass/Vol] 9.8 mg/dL Normal 8.4-10.2 [facility] ([place] Comment on above: Performed By: #### I BC, MG, FERR, PBNP, LIPID, TSH, GFR, BMP #### [address] [address] Chloride [Moles/Vol] 103 mmol/L Normal 98-107 [facility] ([place] Comment on above: Performed By: #### I BC, MG, FERR, PBNP, LIPID, TSH, GFR, BMP #### [address] [address] CO2 [Moles/Vol] 29 mmol/L Normal 23-31 [facility] ([place] Comment on above: Performed By: #### I BC, MG, FERR, PBNP, LIPID, TSH, GFR, BMP #### [address] [address] Creatinine [Mass/Vol] 0.96 mg/dL Normal 0.55-1.02 [facility] ([place] Comment on above: Performed By: #### I BC, MG, FERR, PBNP, LIPID, TSH, GFR, BMP #### [address] [address] Electrolyte Balance 10.0 mEq/L Normal 4.0-15.0 [facility] ([place] Comment on above: Performed By: #### I BC, MG, FERR, PBNP, LIPID, TSH, GFR, BMP #### [address] [address] Glucose [Mass/Vol] 113 mg/dL Normal 80-115 [facility] ([place] Comment on above: Performed By: #### I BC, MG, FERR, PBNP, LIPID, TSH, GFR, BMP #### [address] [address] Potassium [Moles/Vol] 4.1 mmol/L Normal 3.5-5.1 [facility] ([place] Comment on above: Performed By: #### I BC, MG, FERR, PBNP, LIPID, TSH, GFR, BMP #### [address] [address] Sodium [Moles/Vol] 142 mmol/L Normal 136-145 [facility] ([place] Comment on above: Performed By: #### I BC, MG, FERR, PBNP, LIPID, TSH, GFR, BMP #### [address] [address] Urea nitrogen [Mass/Vol] 17 mg/dL Normal 7-18 [facility] ([place] Comment on above: Performed By: #### I BC, MG, FERR, PBNP, LIPID, TSH, GFR, BMP #### [address] [address] Fly 06-24-2023 Ferritin [Mass/Vol] 93.0 ng/mL Normal 8.0-252.0 [facility] ([place] Comment on above: Performed By: #### I BC, MG, FERR, PBNP, LIPID, TSH, GFR, BMP #### [address] [address] IBCon 06-24-2023 TIBC 333 mcg/dL Normal 250-450 [facility] ([place] Comment on above: Performed By: #### I BC, MG, FERR, PBNP, LIPID, TSH, GFR, BMP ####[address] [address] LIPIDon 06-24-2023 Cholesterol [Mass/Vol] 332 mg/dL High 0-200 [facility] ([place] Comment on above: Result Comment: Chol esterol Reference Interval: Less than 200 Desirable 200-239 Borderline high risk 240 and above High risk Performed By: #### I BC, MG, FERR, PBNP, LIPID, TSH, GFR, BMP ####[address] [place], [place] [address] Cholesterol in HDL [Mass/Vol] 56 mg/dL Normal 40-60 [facility] ([place] Comment on above: Performed By: #### I BC, MG, FERR, PBNP, LIPID, TSH, GFR, BMP ####[address] [place], [place] [address] Cholesterol in LDL [Mass/Vol] 232 mg/dL High 0-130 [facility] ([place] Comment on above: Performed By: #### I BC, MG, FERR, PBNP, LIPID, TSH, GFR, BMP ####[address] [place], [place] [address] Triglyceride [Mass/Vol] 218 mg/dL High 0-150 [facility] ([place] Comment on above: Result Comment: Trig lyceride Reference Interval: Less than 150 Normal 150-199 Borderline high risk 200-499 High risk 500 or higher Very high risk Performed By: #### I BC, MG, FERR, PBNP, LIPID, TSH, GFR, BMP ####[address] [place], [place] [address] MGon 06-24-2023 Magnesium [Mass/Vol] 1.9 mg/dL Normal 1.8-2.4 [facility] ([place] Comment on above: Performed By: #### I BC, MG, FERR, PBNP, LIPID, TSH, GFR, BMP ####[address] [place], [place] [address] PBNPon 06-24-2023 Natriuretic peptide B (Bld) [Mass/Vol] 60 pg/mL Normal 0-125 [facility] ([place] Comment on above: Result Comment: NT-p roBNP results of less than 300 pg/mL effectively rules out acute congestive heart failure with 99% negative predictive value. Performed By: #### I BC, MG, FERR, PBNP, LIPID, TSH, GFR, BMP ####[address] [place], [place] [address] TSHon 06-24-2023 TSH Qn 1.57 m[IU]/L Normal 0.36-3.74 [facility]) Comment on above: Performed By: #### I BC, MG, FERR, PBNP, LIPID, TSH, GFR, BMP ####[address] [place], [place] [address] XR SACROILIAC JOINTS MINIMUM 3 VIEWSon 02-26-2023 XR SACROILIAC JOINTS MINIMUM 3 VIEWS ORIGINAL EXAMINATION: THREE XRAY VIEWS OF THE SACRO-ILIAC JOINTS02/20/2023 2:45 pm COMPARISON: None HISTORY: ORDERING SYSTEM PROVIDED HISTORY: Reason for Exam: PAIN, pain in the left hip region, history of trauma FINDINGS: SI joints are symmetric and unremarkable with no significant degenerative change, ankylosis or erosive arthritis. No fracture or lytic process is seen. IMPRESSION: Negative SI joints. Interpreted by: Pawan Royal MD Preliminary Report By: Pawan Royal MD Electronically signed By Pawan Royal MD Dictated Date: 02/26/2023 12:53:15 AM Prelim Date: 02/26/2023 12:54:01 AM Sign Date: 02/26/2023 12:54:01 AM Ordering Provider: MICHI Lopez [facility] ([place] CCPon 02-02-2023 Cyclic Citrullinated Peptide <20.0 Normal <=20.0 [facility] ([place]) Comment on above: Result Comment: Cycl ic Citrullinated IgG Interpretation: Result Units Negative <20 Weak Positive 20-39 Moderate Positive 40-59 Strong Positive >=60 A positive result indicates the presence of IgG anti-CCP3 antibodies and suggests the possibility of RA. A negative result indicates no CCP3 antibody or levels below the negative cut-off of the assay. Results of this assay should be used in conjunction with clinical findings and other serological tests. These test results were obtained with the [employer] Quanta Lite CCP3 IgG LUI. Anti-CCP values obtained with different manufacturers' assay methods may not be used interchangeably. Performed By: #### C MP, ANEU, GFR, ADIFF, A1C, CBC #### [address] [address] RFon 02-02-2023 Rheumatoid Factor <6.0 Normal <=6.0 [facility] ([place] Comment on above: Result Comment: RF I gM Antibody by Enzyme Immunoassay: Negative < or = 6 Positive > 6 A positive result indicates the presence of RF antibodies and suggests the possibility of rheumatoid arthritis. A negative result indicates no RF IgM antibody or levels below the negative cut-off of the assay. Results of this assay should be used in conjunction with clinical findings and other serological tests. These results were obtained with the [employer] QUANTA Lite RF IgM LUI. RF IgM values obtained with different manufacturers' assay methods may not be used interchangeably. The magnitude of the reported IgM levels cannot be correlated to an endpoint titer. Performed By: #### C MP, ANEU, GFR, ADIFF, A1C, CBC #### [address] [address] .ANATon 01-31-2023 AMARI Pattern 1 Homogeneous Normal [facility] ([place]) Comment on above: Result Comment: At A ulan, an AMARI titer of 160 or greater suggests connective tissue disease but should not be considered diagnostic. The AMARI result should be considered in combination with other serological results and the clinical history of the patient. HOMOGENEOUS: Suggests systemic lupus erythematosis or drug-induced lupus. Low titers may be seen in other rheumatoid diseases. SUPPLEMENTAL TESTS: Anti-DNA, Complement C3 C4, Histone Ab (if patient is receiving hydralazine or procainamide). Performed By: #### C MP, ANEU, GFR, ADIFF, A1C, CBC #### [address] [address] AMARI Titer 1 640 Normal [facility] ([place] Comment on above: Performed By: #### C MP, ANEU, GFR, ADIFF, A1C, CBC #### [address] [address] ANAon 01-31-2023 AMARI See Titer Normal Neg 40 [facility] ([place] Comment on above: Result Comment: AMARI Screen and Titer methodology is an immunofluorescent technique utilizing Hep2 Substrate. Performed By: #### C MP, ANEU, GFR, ADIFF, A1C, CBC #### [address] [address] .Auto Diffon 01-30-2023 Basophil, Absolute 0.0 10 3/mcL Normal 0.0-0.2 [facility] ([place] Comment on above: Performed By: #### C MP, ANEU, GFR, ADIFF, A1C, CBC #### [address] [address] Basophils/100 WBC (Bld) 0.8 % Normal 0.0-2.5 [facility] ([place] Comment on above: Performed By: #### C MP, ANEU, GFR, ADIFF, A1C, CBC #### [address] [address] Eosinophil, Absolute 0.1 10 3/mcL Normal 0.0-0.4 [facility] ([place] Comment on above: Performed By: #### C MP, ANEU, GFR, ADIFF, A1C, CBC #### [address] [address] Eosinophils/100 WBC (Bld) 1.6 % Normal 0.0-7.0 [facility] ([place] Comment on above: Performed By: #### C MP, ANEU, GFR, ADIFF, A1C, CBC #### [address] [address] Lymphocyte, Absolute 1.1 10 3/mcL Normal 0.8-3.9 [facility] ([place] Comment on above: Performed By: #### C MP, ANEU, GFR, ADIFF, A1C, CBC #### [address] [address] Lymphocytes/100 WBC (Bld) 26.4 % Normal 10.0-50.0 [facility] ([place] Comment on above: Performed By: #### C MP, ANEU, GFR, ADIFF, A1C, CBC #### [address] [address] Monocyte, Absolute 0.3 10 3/mcL Normal 0.2-1.0 [facility] ([place] Comment on above: Performed By: #### C MP, ANEU, GFR, ADIFF, A1C, CBC #### [address] [address] Monocytes/100 WBC (Bld) 6.4 % Normal 1.7-13.0 [facility] ([place] Comment on above: Performed By: #### C MP, ANEU, GFR, ADIFF, A1C, CBC #### [address] [address] Neutrophils/100 WBC (Bld) 64.8 % Normal 37.0-80.0 [facility] ([place] Comment on above: Performed By: #### C MP, ANEU, GFR, ADIFF, A1C, CBC #### [address] [address] .GFRon 01-30-2023 GFR 70 ml/min/1.73sqm Normal [facility] ([place] Comment on above: Result Comment: GFR Population mean for , Non- Americans Ages 20-29 = 116 mL/min/1.73 sq.m. Ages 30-39 = 107 mL/min/1.73 sq.m. Ages 40-49 = 99 mL/min/1.73 sq.m. Ages 50-59 = 93 mL/min/1.73 sq.m. Ages 60-69 = 85 mL/min/1.73 sq.m. Ages 70+ = 75 mL/min/1.73 sq.m. Chronic Kidney Disease: Less than 60 mL/min/1.73 square meters End Stage Renal Disease: Less than 15 mL/min/1.73 square meters Performed By: #### A SALVADOR, AMARI, RF, CCP ####[address] [address]#### ANEU, CMP, ADIFF, GFR, TSH, VIDH, CBC ####[address] [place], [place] [address] GFR Non- 58 ml/min/1.73sqm Normal [facility] ([place] Comment on above: Result Comment: GFR Population mean for , Non- Americans Ages 20-29 = 116 mL/min/1.73 sq.m. Ages 30-39 = 107 mL/min/1.73 sq.m. Ages 40-49 = 99 mL/min/1.73 sq.m. Ages 50-59 = 93 mL/min/1.73 sq.m. Ages 60-69 = 85 mL/min/1.73 sq.m. Ages 70+ = 75 mL/min/1.73 sq.m. Chronic Kidney Disease: Less than 60 mL/min/1.73 square meters End Stage Renal Disease: Less than 15 mL/min/1.73 square meters Performed By: #### A SALVADOR, AMARI, RF, CCP ####[place] [address]#### ANEU, CMP, ADIFF, GFR, TSH, VIDH, CBC ####[address] [address] .NEUABSon 01-30-2023 Neutrophil, Absolute 2.7 10 3/mcL Low 2.9-6.2 [facility] ([place] Comment on above: Performed By: #### C MP, ANEU, GFR, ADIFF, A1C, CBC #### [address] [address] CBCon 01-30-2023 Erythrocyte distribution width (RBC) [Ratio] 13.4 % Normal 11.5-14.5 [facility] ([place] Comment on above: Performed By: #### C MP, ANEU, GFR, ADIFF, A1C, CBC #### [place] [id number] Hematocrit (Bld) [Volume fraction] 36.0 % Low 37.0-47.0 [facility] ([place] Comment on above: Performed By: #### C MP, ANEU, GFR, ADIFF, A1C, CBC #### [place] [id number] Hgb 12.4 G/dL Normal 12.0-16.0 [facility] ([place] Comment on above: Performed By: #### C MP, ANEU, GFR, ADIFF, A1C, CBC #### [address] [address] MCH (RBC) [Entitic mass] 29.9 pg Normal 27.0-31.2 [facility] ([place] Comment on above: Performed By: #### C MP, ANEU, GFR, ADIFF, A1C, CBC #### [address] [address] MCHC 34.3 G/dL Normal 33.0-37.0 [facility] ([place] Comment on above: Performed By: #### C MP, ANEU, GFR, ADIFF, A1C, CBC #### [address] [address] MCV (RBC) [Entitic vol] 87.1 fL Normal 80.0-94.0 [facility] ([place] Comment on above: Performed By: #### C MP, ANEU, GFR, ADIFF, A1C, CBC #### [place] [address] Platelet 207 10 3/mcL Normal 130-400 [facility] ([place] Comment on above: Performed By: #### C MP, ANEU, GFR, ADIFF, A1C, CBC #### [place] [address] Platelet mean volume (Bld) [Entitic vol] 7.4 fL Normal 7.4-10.4 [facility] ([place] Comment on above: Performed By: #### C MP, ANEU, GFR, ADIFF, A1C, CBC #### [place] [address] RBC 4.14 10 6/mcL Low 4.20-5.40 [facility] ([place] Comment on above: Performed By: #### C MP, ANEU, GFR, ADIFF, A1C, CBC #### [place] [address] WBC 4.1 10 3/mcL Low 4.6-10.8 [facility] ([place] Comment on above: Performed By: #### C MP, ANEU, GFR, ADIFF, A1C, CBC #### [place] [address] CMPon 01-30-2023 Albumin Level 4.2 G/dL Normal 3.4-4.8 [facility] ([place] Comment on above: Performed By: #### A SALVADOR, AMARI, RF, CCP ####[place] [address]#### ANEU, CMP, ADIFF, GFR, TSH, VIDH, CBC ####[address] [address] Albumin/Globulin [Mass ratio] 1.4 {ratio} Normal 1.1-2.5 [facility] ([place] Comment on above: Performed By: #### A SALVADOR, AMARI, RF, CCP ####[place] [address]#### ANEU, CMP, ADIFF, GFR, TSH, VIDH, CBC ####[address] [address] ALP [Catalytic activity/Vol] 72 U/L Normal 40-135 [facility] ([place] Comment on above: Performed By: #### A SALVADOR, AMARI, RF, CCP ####[place] [address]#### ANEU, CMP, ADIFF, GFR, TSH, VIDH, CBC ####[address] [address] ALT [Catalytic activity/Vol] 18 U/L Normal 14-59 [facility] ([place] Comment on above: Performed By: #### A SALVADOR, AMARI, RF, CCP ####[place] [address]#### ANEU, CMP, ADIFF, GFR, TSH, VIDH, CBC ####[place] [address] [place], [place] [address] AST [Catalytic activity/Vol] 12 U/L Normal 10-40 [facility] ([place] Comment on above: Performed By: #### A SALVADOR, AMARI, RF, CCP ####[place] [address]#### ANEU, CMP, ADIFF, GFR, TSH, VIDH, CBC ####[address] [place], [place] [address] Bili Total 0.5 mg/dL Normal 0.2-1.0 [facility] ([place] Comment on above: Result Comment: Use of this assay is not recommended for patients undergoing treatment with eltrombopag due to the potential for falsely elevated results. Performed By: #### A SALVADOR, AMARI, RF, CCP ####[place] [address]#### ANEU, CMP, ADIFF, GFR, TSH, VIDH, CBC ####[place] [address] [place], [place] [address] BUN/Creatinine Ratio 18 ratio Normal 7-27 [facility] ([place]) Comment on above: Performed By: #### A SALVADOR, AMARI, RF, CCP ####[place] [address]#### ANEU, CMP, ADIFF, GFR, TSH, VIDH, CBC ####[place] [address] [place], [place] [address] Calcium [Mass/Vol] 9.3 mg/dL Normal 8.4-10.2 [facility] ([place]) Comment on above: Performed By: #### A SALVADOR, AMARI, RF, CCP ####[place] [address]#### ANEU, CMP, ADIFF, GFR, TSH, VIDH, CBC ####[place] [address] [place], [place] [address] Chloride [Moles/Vol] 104 mmol/L Normal 98-107 [facility] ([place] Comment on above: Performed By: #### A SALVADOR, AMARI, RF, CCP ####[place] [address]#### ANEU, CMP, ADIFF, GFR, TSH, VIDH, CBC ####[facility] [place], [place] [address] CO2 [Moles/Vol] 29 mmol/L Normal 23-31 [facility] ([place] Comment on above: Performed By: #### A SALVADOR, AMARI, RF, CCP ####[address] [address]#### ANEU, CMP, ADIFF, GFR, TSH, VIDH, CBC ####[facility] [place], [place] [address] Creatinine [Mass/Vol] 0.97 mg/dL Normal 0.55-1.02 [facility] ([place] Comment on above: Performed By: #### A SALVADOR, AMARI, RF, CCP ####[place] [address]#### ANEU, CMP, ADIFF, GFR, TSH, VIDH, CBC ####[place] [address] [place], [place] [address] Electrolyte Balance 7.0 mEq/L Normal 4.0-15.0 [facility] ([place]) Comment on above: Performed By: #### A SALVADOR, AMARI, RF, CCP ####[place] [address]#### ANEU, CMP, ADIFF, GFR, TSH, VIDH, CBC ####[place] [address] [place], [place] [address] Globulin 3.1 G/dL Normal [facility] ([place] Comment on above: Performed By: #### A SALVADOR, AMARI, RF, CCP ####[place] [address]#### ANEU, CMP, ADIFF, GFR, TSH, VIDH, CBC ####[place] [address] [place], [place] [address] Glucose [Mass/Vol] 112 mg/dL Normal 80-115 [facility] ([place] Comment on above: Performed By: #### A SALVADOR, AMARI, RF, CCP ####[place] [address]#### ANEU, CMP, ADIFF, GFR, TSH, VIDH, CBC ####[facility] [place], [place] [address] Potassium [Moles/Vol] 4.3 mmol/L Normal 3.5-5.1 [facility] ([place] Comment on above: Performed By: #### A SALVADOR, AMARI, RF, CCP ####[address] [address]#### ANEU, CMP, ADIFF, GFR, TSH, VIDH, CBC ####[facility] [place], [place] [address] Sodium [Moles/Vol] 140 mmol/L Normal 136-145 [facility] ([place] Comment on above: Performed By: #### A SALVADOR, AMARI, RF, CCP ####[place] [address]#### ANEU, CMP, ADIFF, GFR, TSH, VIDH, CBC ####[facility] [place], [place] [address] Total Protein 7.3 G/dL Normal 6.4-8.2 [facility] ([place] Comment on above: Performed By: #### A SALVADOR, AMARI, RF, CCP ####[place] [address]#### ANEU, CMP, ADIFF, GFR, TSH, VIDH, CBC ####[facility] [place], [place] [address] Urea nitrogen [Mass/Vol] 17 mg/dL Normal 7-18 [facility] ([place] Comment on above: Performed By: #### A SALVADOR, AMARI, RF, CCP ####[place] [address]#### ANEU, CMP, ADIFF, GFR, TSH, VIDH, CBC ####[facility] [place], [place] [address] LABORATORYOrdered By: SYSTEM SYSTEM on 01-30-2023 25-hydroxyvitamin D3 [Mass/Vol] 26.6 ng/mL Invalid Interpretation Code AO ADM SS Comment on above: Interpretive Data: I nterpretive Values Based on Total 25(OH) Vitamin D: Deficient <20 ng/mL Insufficient 20 - <30 ng/mL Sufficient 30-100 ng/mL Albumin BCP dye [Mass/Vol] 4.2 G/dL Invalid Interpretation Code 3.4 - 4.8 G/dL AO ADM SS Albumin/Globulin [Mass ratio] 1.4 {ratio} Invalid Interpretation Code 1.1 - 2.5 ratio AO ADM SS ALP [Catalytic activity/Vol] 72 U/L Invalid Interpretation Code 40 - 135 U/L AO ADM SS ALT With P-5'-P [Catalytic activity/Vol] 18 U/L Invalid Interpretation Code 14 - 59 U/L AO ADM SS AST With P-5'-P [Catalytic activity/Vol] 12 U/L Invalid Interpretation Code 10 - 40 U/L AO ADM SS Basophil, Absolute 0.0 103/mcL Invalid Interpretation Code 0.0 - 0.2 10^3/mcL AO Workflow SS Basophils/100 WBC (Bld) 0.8 % Invalid Interpretation Code 0.0 - 2.5 % AO Workflow SS Bilirubin [Mass/Vol] 0.5 mg/dL Invalid Interpretation Code 0.2 - 1.0 mg/dL AO ADM SS Comment on above: Interpretive Data: U se of this assay is not recommended for patients undergoing treatment with eltrombopag due to the potential for falsely elevated results. Calcium [Mass/Vol] 9.3 mg/dL Invalid Interpretation Code 8.4 - 10.2 mg/dL AO ADM SS Chloride [Moles/Vol] 104 mmol/L Invalid Interpretation Code 98 - 107 mmol/L AO ADM SS CO2 [Moles/Vol] 29 mmol/L Invalid Interpretation Code 23 - 31 mmol/L AO ADM SS Creatinine [Mass/Vol] 0.97 mg/dL Invalid Interpretation Code 0.55 - 1.02 mg/dL AO ADM SS Electrolyte Balance 7.0 mEq/L Invalid Interpretation Code 4.0 - 15.0 mEq/L AO ADM SS Eosinophil, Absolute 0.1 103/mcL Invalid Interpretation Code 0.0 - 0.4 10^3/mcL AO Workflow SS Eosinophils/100 WBC (Bld) 1.6 % Invalid Interpretation Code 0.0 - 7.0 % AO Workflow SS Erythrocyte distribution width (RBC) [Ratio] 13.4 % Invalid Interpretation Code 11.5 - 14.5 % AO Workflow SS GFR/1.73 sq M.predicted among blacks MDRD (S/P/Bld) [Vol rate/Area] 70 ml/min/1.73sqm Invalid Interpretation Code AO Chemistry S Comment on above: Interpretive Data: GFR Population mean for , Non- Americans Ages 20-29 = 116 mL/min/1.73 sq.m. Ages 30-39 = 107 mL/min/1.73 sq.m. Ages 40-49 = 99 mL/min/1.73 sq.m. Ages 50-59 = 93 mL/min/1.73 sq.m. Ages 60-69 = 85 mL/min/1.73 sq.m. Ages 70+ = 75 mL/min/1.73 sq.m. Chronic Kidney Disease: Less than 60 mL/min/1.73 square meters End Stage Renal Disease: Less than 15 mL/min/1.73 square meters GFR/1.73 sq M.predicted among non-blacks MDRD (S/P/Bld) [Vol rate/Area] 58 ml/min/1.73sqm Invalid Interpretation Code AO Chemistry S Comment on above: Interpretive Data: GFR Population mean for , Non- Americans Ages 20-29 = 116 mL/min/1.73 sq.m. Ages 30-39 = 107 mL/min/1.73 sq.m. Ages 40-49 = 99 mL/min/1.73 sq.m. Ages 50-59 = 93 mL/min/1.73 sq.m. Ages 60-69 = 85 mL/min/1.73 sq.m. Ages 70+ = 75 mL/min/1.73 sq.m. Chronic Kidney Disease: Less than 60 mL/min/1.73 square meters End Stage Renal Disease: Less than 15 mL/min/1.73 square meters Globulin 3.1 G/dL Invalid Interpretation Code AO ADM SS Glucose [Mass/Vol] 112 mg/dL Invalid Interpretation Code 80 - 115 mg/dL AO ADM SS Hematocrit (Bld) [Volume fraction] 36.0 % Invalid Interpretation Code 37.0 - 47.0 % AO Workflow SS Hemoglobin (Bld) [Mass/Vol] 12.4 G/dL Invalid Interpretation Code 12.0 - 16.0 G/dL AO Workflow SS Lymphocyte, Absolute 1.1 103/mcL Invalid Interpretation Code 0.8 - 3.9 10^3/mcL AO Workflow SS Lymphocytes/100 WBC (Bld) 26.4 % Invalid Interpretation Code 10.0 - 50.0 % AO Workflow SS MCH (RBC) [Entitic mass] 29.9 pg Invalid Interpretation Code 27.0 - 31.2 pg AO Workflow SS MCHC 34.3 G/dL Invalid Interpretation Code 33.0 - 37.0 G/dL AO Workflow SS MCV (RBC) [Entitic vol] 87.1 fL Invalid Interpretation Code 80.0 - 94.0 fL AO Workflow SS Monocyte, Absolute 0.3 103/mcL Invalid Interpretation Code 0.2 - 1.0 10^3/mcL AO Workflow SS Monocytes/100 WBC (Bld) 6.4 % Invalid Interpretation Code 1.7 - 13.0 % AO Workflow SS Neutrophil, Absolute 2.7 103/mcL Invalid Interpretation Code 2.9 - 6.2 10^3/mcL AO Workflow SS Neutrophils/100 WBC (Bld) 64.8 % Invalid Interpretation Code 37.0 - 80.0 % AO Workflow SS Platelet mean volume (Bld) [Entitic vol] 7.4 fL Invalid Interpretation Code 7.4 - 10.4 fL AO Workflow SS Platelets (Bld) [#/Vol] 207 103/mcL Invalid Interpretation Code 130 - 400 10^3/mcL AO Workflow SS Potassium [Moles/Vol] 4.3 mmol/L Invalid Interpretation Code 3.5 - 5.1 mmol/L AO ADM SS Protein [Mass/Vol] 7.3 G/dL Invalid Interpretation Code 6.4 - 8.2 G/dL AO ADM SS RBC (Bld) [#/Vol] 4.14 106/mcL Invalid Interpretation Code 4.20 - 5.40 10^6/mcL AO Workflow SS Sodium [Moles/Vol] 140 mmol/L Invalid Interpretation Code 136 - 145 mmol/L AO ADM SS TSH Qn 1.52 m[IU]/L Invalid Interpretation Code 0.36 - 3.74 mcIU/mL AO ADM SS Urea nitrogen [Mass/Vol] 17 mg/dL Invalid Interpretation Code 7 - 18 mg/dL AO ADM SS Urea nitrogen/Creatinine [Mass ratio] 18 ratio Invalid Interpretation Code 7 - 27 ratio AO ADM SS WBC (Bld) [#/Vol] 4.1 103/mcL Invalid Interpretation Code 4.6 - 10.8 10^3/mcL AO Workflow SS TSHon 01-30-2023 TSH Qn 1.52 m[IU]/L Normal 0.36-3.74 [facility] ([place]) Comment on above: Performed By: #### A SALVADOR, AMARI, RF, CCP ####[place] [address] [place] [address]#### ANEU, CMP, ADIFF, GFR, TSH, VIDH, CBC ####[address] [place], [place] [address] VIDHon 01-30-2023 Vit. D 25-Hydroxy 26.6 ng/mL Normal [facility] ([place]) Comment on above: Result Comment: Inte rpretive Values Based on Total 25(OH) Vitamin D: Deficient <20 ng/mL Insufficient 20 - <30 ng/mL Sufficient 30-100 ng/mL Performed By: #### A SALVADOR, AMARI, RF, CCP ####[address] [address]#### ANEU, CMP, ADIFF, GFR, TSH, VIDH, CBC ####[address] [place], [place] [address] CNPEdwina 09-06-2022 [facility] Telephone (JEFF) CAYLA HICKEY ([id number]) 1955 F T Date Time Provider Department 09/06/22 AURORA ZHAO During your visit today, we recorded the following information about you: Lyn Shields 09/06/2022 10:16 AM Signed I called and spoke to patient, she [place] over [place] hour from [place], she said since all her testing was fine, she prefers to not have a follow up at this time. She has an appt with her PCP and will decide later on if she needs to have a remodeler and if she does, she prefers to have one closer to her home in [facility]. She is not going to follow up here at this time. Lyn Shileds Allergies As of Date: 09/06/2022 Noted Allergy Reaction ALEVE (NAPROXEN SODIUM) 03/24/2014 10 - Anaphylaxis NORGESIC ([id number] EMILY*03/24/2014 10 - Anaphylaxis Date Reviewed: 08/31/2022 Reviewed by: Dunia Crooks RN - Fully Assessed Reason for Visit: Patient Update [1234] Prescriptions as of 09/06/2022 - Benazepril-hydroCHLOR Othiazide 20-12.5 mg per tablet Take 1 tablet by mouth twice daily. - niacin 500 mg TbER Take by mouth daily at bedtime. - ergocalciferol 50,000 unit capsule (VITAMIN D2, DRISDOL) Take 50,000 Units by mouth every 2 weeks. Problem List As Of Date 09/06/2022 Noted Resolved Hypertension [I10] 03/24/2014 Vitamin D deficiency [E55.9] 03/24/2014 Thyroid nodule [E04.1] 03/24/2014 Osteopenia [M85.80] 03/24/2014 Encounter Status:Closed by LYN SHIELDS on 09/06/22 [facility] CNPN Telephone (TESHAPernixDataJK) CAYLA HICKEY ([id number]) 1955 F [facility] Date Time Provider Department 09/06/22 ROSA BROWNSAURAV During your visit today, we recorded the following information about you: Allergies As of Date: 09/06/2022 Noted Allergy Reaction ALEVE (NAPROXEN SODIUM) 03/24/2014 10 - Anaphylaxis NORGESIC ([id number] EMILY*03/24/2014 10 - Anaphylaxis Date Reviewed: 08/31/2022 Reviewed by: Dunia Crooks RN - Fully Assessed Reason for Visit: Patient Update [1234] Prescriptions as of 09/06/2022 - Benazepril-hydroCHLOR Othiazide 20-12.5 mg per tablet Take 1 tablet by mouth twice daily. - niacin 500 mg TbER Take by mouth daily at bedtime. - ergocalciferol 50,000 unit capsule (VITAMIN D2, DRISDOL) Take 50,000 Units by mouth every 2 weeks. Problem List As Of Date 09/06/2022 Noted Resolved Hypertension [I10] 03/24/2014 Vitamin D deficiency [E55.9] 03/24/2014 Thyroid nodule [E04.1] 03/24/2014 Osteopenia [M85.80] 03/24/2014 Encounter Status:Closed by LYN SHIELDS on 09/06/22 [facility] CNPN Telephone (ABHINAVJK) CAYLA HICKEY ([id number]) 1955 F T Date Time Provider Department 09/06/22 AURORA ZHAO During your visit today, we recorded the following information about you: Allergies As of Date: 09/06/2022 Noted Allergy Reaction ALEVE (NAPROXEN SODIUM) 03/24/2014 10 - Anaphylaxis NORGESIC ([id number] EMILY*03/24/2014 10 - Anaphylaxis Date Reviewed: 08/31/2022 Reviewed by: Dunia Crooks, MOJGAN - Fully Assessed Reason for Visit: Patient Update [1234] Prescriptions as of 09/06/2022 - Benazepril-hydroCHLOR Othiazide 20-12.5 mg per tablet Take 1 tablet by mouth twice daily. - niacin 500 mg TbER Take by mouth daily at bedtime. - ergocalciferol 50,000 unit capsule (VITAMIN D2, DRISDOL) Take 50,000 Units by mouth every 2 weeks. Problem List As Of Date 09/06/2022 Noted Resolved Hypertension [I10] 03/24/2014 Vitamin D deficiency [E55.9] 03/24/2014 Thyroid nodule [E04.1] 03/24/2014 Osteopenia [M85.80] 03/24/2014 Encounter Status:Closed by LYN SHIELDS on 09/06/22 [facility] CNPN Telephone (CARMOB) MICHAELCAYLA J ([id number]) 1955 F [facility] Date Time Provider Department 09/06/22 ROSA BROWN During your visit today, we recorded the following information about you: Inna Vargas Josemanuel 09/06/2022 9:50 AM Signed Patient left a voicemail asking for a call back to schedule an ER follow up appointment with Dr. Brown. Please call patient at [phone]. Freddy Olmstead RN 09/06/2022 10:54 AM Signed The patient would be considered a new patient to Dr. Brown. First available new patient appointment is in November at [facility]. If patient is willing please see if another Manager Sterile can accomodates an earlier appointment. Thanks, Freddy Olmstead RN September 06, 2022 10:52 AM Allergies As of Date: 09/06/2022 Noted Allergy Reaction ALEVE (NAPROXEN SODIUM) 03/24/2014 10 - Anaphylaxis NORGESIC ([id number] EMILY*03/24/2014 10 - Anaphylaxis Date Reviewed: 08/31/2022 Reviewed by: Dunia Crooks RN - Fully Assessed Reason for Visit: Appointment [186] Prescriptions as of 09/06/2022 - Benazepril-hydroCHLOR Othiazide 20-12.5 mg per tablet Take 1 tablet by mouth twice daily. - niacin 500 mg TbER Take by mouth daily at bedtime. - ergocalciferol 50,000 unit capsule (VITAMIN D2, DRISDOL) Take 50,000 Units by mouth every 2 weeks. Problem List As Of Date 09/06/2022 Noted Resolved Hypertension [I10] 03/24/2014 Vitamin D deficiency [E55.9] 03/24/2014 Thyroid nodule [E04.1] 03/24/2014 Osteopenia [M85.80] 03/24/2014 Encounter Status:Closed by LYN SHIELDS on 09/06/22 [facility] ALLIED HEALTHon 08-31-2022 ALLIED HEALTH HNO ID: [id number] Author: RT Munir(R) Service: Radiology Author Type: Technologist Type: Allied Health Filed: 08/31/2022 9:09 AM Note Text: Summary: CHEST PA/LAT Radiology Service Progress Note PATIENT NAME: Cayla Hickey DATE OF SERVICE: August 31, 2022 TIME: 9:09 AM PATIENT IDENTITY VERIFICATION COMPLETED USING TWO (2) IDENTIFIERS: Name and Date of confirmed by patient verbally and Name and Date of confirmed by identification band. FALL SCREENING: Has the patient had 2 falls in the last year or 1 fall with injury or currently using an Ambulatory Assistive Device (Walker, Cane, Wheelchair, Crutches, etc.)? Emergency Room Patient: Screened in ED PATIENT GENDER DATA: Female. status: : No status: NO. PATIENT RELEVANT IMPLANT DATA REVIEWED: Not Applicable RADIOLOGY DEPARTMENT: General X-ray: Exam(s) Completed: Chest X-Ray PERIPHERAL IV DATA: Not applicable SIGNED BY: RT Munir(R) August 31, 2022 9:09 AM [facility] Basic metabolic 2000 panelon 08-31-2022 Anion gap [Moles/Vol] 8 mmol/L Normal 5-16 [facility] Comment on above: Order Comment: Speci men Type: BLOOD SPECIMEN Ordering Facility: [facility] Address: [address] [address] Performed By: #### 2 4321-2 #### [facility] CLIA [id number] [address] [place] [address] [place] Calcium [Mass/Vol] 9.5 mg/dL Normal 8.5-10.5 [facility] Comment on above: Order Comment: Speci men Type: BLOOD SPECIMEN Ordering Facility: [facility] Address: [address] [address] Performed By: #### 2 4321-2 #### [facility] CLIA [id number] [address] [place] [address] [place] Chloride [Moles/Vol] 104 mmol/L Normal 98-107 [facility] Comment on above: Order Comment: Speci men Type: BLOOD SPECIMEN Ordering Facility: [facility] Address: [address] [address] Performed By: #### 2 4321-2 #### [facility] CLIA [id number] [address] [place] [address] [place] CO2 [Moles/Vol] 30 mmol/L Normal 21-32 [facility] Comment on above: Order Comment: Speci men Type: BLOOD SPECIMEN Ordering Facility: [facility] Address: [address] [place] [address] Performed By: #### 2 4321-2 #### [facility] CLIA [id number] [address] [place] [address] [place] Creatinine [Mass/Vol] 0.90 mg/dL Normal 0.51-0.95 [facility] Comment on above: Order Comment: Speci men Type: BLOOD SPECIMEN Ordering Facility: [facility] Address: [address] [place] [address] Result Comment: Hanna ents receiving either N-Acetylcysteine (NAC) or Metamizole prior to venipuncture, may have falsely depressed results. Performed By: #### 2 4321-2 #### [facility] CLIA [id number] [address] [place] [address] [place] ESTIMATED GLOMERULAR FILTRATION RATE 72 mL/min/1.73m??? Normal >=60 [facility] Comment on above: Order Comment: Salty desai Type: BLOOD SPECIMEN Ordering Facility: [facility] Address: [address] [place] [address] Result Comment: Luna mated Glomerular Filtration Rate (eGFR) is calculated using the 2020 CKD-EPI creatinine equation. This equation utilizes serum creatinine, sex, and age as parameters. The creatinine assay has traceable calibration to isotope dilution-mass spectrometry. Refer to KDIGO guidelines for clinical interpretation. In patients with unstable renal function, e.g. those with acute kidney injury, the eGFR may not accurately reflect actual GFR. Performed By: #### 2 4321-2 #### [facility] CLIA [id number] [address] [place] [address] [place] Glucose [Mass/Vol] 141 mg/dL High 70-100 [facility] Comment on above: Order Comment: Salty desai Type: BLOOD SPECIMEN Ordering Facility: [facility] Address: [address] [place] [address] Result Comment: The [place] Diabetes [employer] (ADA) provides guidance for cutoff values for fasting glucose and random glucose. The ADA defines fasting as no caloric intake for at least 8 hours. Fasting plasma glucose results between 100 to 125 mg/dL indicate increased risk for diabetes (prediabetes). Fasting plasma glucose results greater than or equal to 126 mg/dL meet the criteria for diagnosis of diabetes. In the absence of unequivocal hyperglycemia, results should be confirmed by repeat testing. In a patient with classic symptoms of hyperglycemia or hyperglycemic crisis, random plasma glucose results greater than or equal to 200 mg/dL meet the criteria for diagnosis of diabetes. Reference: Standards of Medical Care in Diabetes 2016, [place] [employer] Association. Diabetes Care. 2016.39(Suppl 1). Results may be falsely elevated after the administration of Sulfapyridine. Results may be falsely depressed after the administration of Sulfasalazine. Performed By: #### 2 4321-2 #### [facility] CLIA [id number] [address] [place], [place] [address] [place] Potassium [Moles/Vol] 3.6 mmol/L Normal 3.5-5.1 [facility] Comment on above: Order Comment: Speci men Type: BLOOD SPECIMEN Ordering Facility: [facility] Address: [address] [address] Performed By: #### 2 4321-2 #### [facility] CLIA [id number] [address] [place] [address] [place] Sodium [Moles/Vol] 142 mmol/L Normal 136-145 [facility] Comment on above: Order Comment: Speci men Type: BLOOD SPECIMEN Ordering Facility: [facility] Address: [address] [address] Performed By: #### 2 4321-2 #### [facility] CLIA [id number] [address] [place] [address] [place] Urea nitrogen [Mass/Vol] 18 mg/dL Normal 7-26 [facility] Comment on above: Order Comment: Speci men Type: BLOOD SPECIMEN Ordering Facility: [facility] Address: [address] [address] Performed By: #### 2 4321-2 #### [facility] CLIA [id number] [address] [place] [address] [place] CBC W Auto Differential pane l (Bld)on 08-31-2022 Basophils (Bld) [#/Vol] 0.03 10*3/uL Normal <0.11 [facility] Comment on above: Order Comment: Speci men Type: BLOOD SPECIMEN Ordering Facility: [facility] Address: [address] Performed By: #### 5 7021-8 #### [facility] CLIA [id number] [address] [place] [address] [place] Basophils/100 WBC (Bld) 0.7 % Normal [facility] Comment on above: Order Comment: Speci men Type: BLOOD SPECIMEN Ordering Facility: [facility] Address: [address] [address] Performed By: #### 5 7021-8 #### [facility] CLIA [id number] [address] [place] [address] [place] Differential cell count method Nom (Bld) Auto Normal [facility] Comment on above: Order Comment: Speci men Type: BLOOD SPECIMEN Ordering Facility: [facility] Address: [address] [place] [address] Performed By: #### 5 7021-8 #### [facility] CLIA [id number] [address] [place] [address] [place] Eosinophils (Bld) [#/Vol] 0.07 10*3/uL Normal <0.46 [facility] Comment on above: Order Comment: Speci men Type: BLOOD SPECIMEN Ordering Facility: [facility] Address: [address] [place] [address] Performed By: #### 5 7021-8 #### [facility] CLIA [id number] [address] [place] [address] [place] Eosinophils/100 WBC (Bld) 1.7 % Normal [facility] Comment on above: Order Comment: Speci men Type: BLOOD SPECIMEN Ordering Facility: [facility] Address: [address] [place] [address] Performed By: #### 5 7021-8 #### [facility] CLIA [id number] [address] [place] [address] [place] Erythrocyte distribution width (RBC) [Ratio] 13.2 % Normal 11.5-15.0 [facility] Comment on above: Order Comment: Speci men Type: BLOOD SPECIMEN Ordering Facility: [facility] Address: [address] [place] [address] Performed By: #### 5 7021-8 #### [facility] CLIA [id number] [address] [place] [address] [place] Hematocrit (Bld) [Volume fraction] 34.2 % Low 36.0-46.0 [facility] Comment on above: Order Comment: Speci men Type: BLOOD SPECIMEN Ordering Facility: [facility] Address: [address] [address] Performed By: #### 5 7021-8 #### [facility] CLIA [id number] [address] [place] [address] [place] Hemoglobin (Bld) [Mass/Vol] 11.6 g/dL Normal 11.5-15.5 [facility] Comment on above: Order Comment: Speci men Type: BLOOD SPECIMEN Ordering Facility: [facility] Address: [address] [address] Performed By: #### 5 7021-8 #### [facility] CLIA [id number] [address] [place] [address] [place] Immature granulocytes (Bld) [#/Vol] 10*3/uL Normal <0.10 [facility] Comment on above: Order Comment: Speci men Type: BLOOD SPECIMEN Ordering Facility: [facility] Address: [address] [address] Performed By: #### 5 7021-8 #### [facility] CLIA [id number] [address] [place] [address] [place] Immature granulocytes/100 WBC (Bld) 0.2 % Normal [facility] Comment on above: Order Comment: Speci men Type: BLOOD SPECIMEN Ordering Facility: [facility] Address: [address] [address] Performed By: #### 5 7021-8 #### [facility] CLIA [id number] [address] [place] [address] [place] Lymphocytes (Bld) [#/Vol] 0.75 10*3/uL Low 1.00-4.00 [facility] Comment on above: Order Comment: Speci men Type: BLOOD SPECIMEN Ordering Facility: [facility] Address: [address] [address] Performed By: #### 5 7021-8 #### [facility] CLIA [id number] [address] [place] [address] [place] Lymphocytes/100 WBC (Bld) 18.4 % Normal [facility] Comment on above: Order Comment: Speci men Type: BLOOD SPECIMEN Ordering Facility: [facility] Address: [address] [address] Performed By: #### 5 7021-8 #### [facility] CLIA [id number] [address] [place] [address] MCH (RBC) [Entitic mass] 29.7 pg Normal 26.0-34.0 [facility] Comment on above: Order Comment: Speci men Type: BLOOD SPECIMEN Ordering Facility: [facility] Address: [address] [address] Performed By: #### 5 7021-8 #### [facility] CLIA [id number] [address] [place] [address] [place] MCHC (RBC) [Mass/Vol] 33.9 g/dL Normal 30.5-36.0 [facility] Comment on above: Order Comment: Speci men Type: BLOOD SPECIMEN Ordering Facility: [facility] Address: [address] [address] Performed By: #### 5 7021-8 #### [facility] CLIA [id number] [address] [place] [address] [place] MCV (RBC) [Entitic vol] 87.7 fL Normal 80.0-100.0 [facility] Comment on above: Order Comment: Speci men Type: BLOOD SPECIMEN Ordering Facility: [facility] Address: [address] [place], [place] [address] Performed By: #### 5 7021-8 #### [facility] CLIA [id number] [address] [place] [address] [place] Monocytes (Bld) [#/Vol] 0.32 10*3/uL Normal <0.87 [facility] Comment on above: Order Comment: Speci men Type: BLOOD SPECIMEN Ordering Facility: [facility] Address: [address] [place] [address] Performed By: #### 5 7021-8 #### [facility] CLIA [id number] [address] [place] [address] [place] Monocytes/100 WBC (Bld) 7.9 % Normal [facility] Comment on above: Order Comment: Speci men Type: BLOOD SPECIMEN Ordering Facility: [facility] Address: [address] [place] [address] Performed By: #### 5 7021-8 #### [facility] CLIA [id number] [address] [place] [address] [place] Neutrophils (Bld) [#/Vol] 2.89 10*3/uL Normal 1.45-7.50 [facility] Comment on above: Order Comment: Speci men Type: BLOOD SPECIMEN Ordering Facility: [facility] Address: [address] [place] [address] Performed By: #### 5 7021-8 #### [facility] CLIA [id number] [address] [place] [address] [place] Neutrophils/100 WBC (Bld) 71.1 % Normal [facility] Comment on above: Order Comment: Speci men Type: BLOOD SPECIMEN Ordering Facility: [facility] Address: [address] [place] [address] Performed By: #### 5 7021-8 #### [facility] CLIA [id number] [address] [place] [address] [place] Nucleated RBC (Bld) [#/Vol] 10*3/uL Normal <0.01 [facility] Comment on above: Order Comment: Speci men Type: BLOOD SPECIMEN Ordering Facility: [facility] Address: [address] [place] [address] Performed By: #### 5 7021-8 #### [facility] CLIA [id number] [address] [place] [address] [place] Nucleated RBC/100 WBC (Bld) [Ratio] 0.0 /100 WBC Normal [facility] Comment on above: Order Comment: Speci men Type: BLOOD SPECIMEN Ordering Facility: [facility] Address: [address] Performed By: #### 5 7021-8 #### [facility] CLIA [id number] [address] [place] [address] [place] Platelet mean volume (Bld) [Entitic vol] 8.7 fL Low 9.0-12.7 [facility] Comment on above: Order Comment: Speci men Type: BLOOD SPECIMEN Ordering Facility: [facility] Address: [address] [address] Performed By: #### 5 7021-8 #### [facility] CLIA [id number] [address] [place] [address] [place] [facility] [place] Platelets (Bld) [#/Vol] 186 10*3/uL Normal 150-400 [facility] Comment on above: Order Comment: Speci men Type: BLOOD SPECIMEN Ordering Facility: [facility] Address: [address] [address] Performed By: #### 5 7021-8 #### [facility] CLIA [id number] [address] [place] [address] [place] RBC (Bld) [#/Vol] 3.90 10*6/uL Normal 3.90-5.20 [facility] Comment on above: Order Comment: Speci men Type: BLOOD SPECIMEN Ordering Facility: [facility] Address: [address] Performed By: #### 5 7021-8 #### [facility] CLIA [id number] [address] [place] [address] [place] WBC (Bld) [#/Vol] 4.07 10*3/uL Normal 3.70-11.00 [facility] Comment on above: Order Comment: Speci men Type: BLOOD SPECIMEN Ordering Facility: [facility] Address: [address] [address] Performed By: #### 5 7021-8 #### [facility] CLIA [id number] [address] [place] [address] [place] ECG COMPLETEon 02-18-2023 ECG COMPLETE Ventricular Rate : 7 6 BPM Atrial Rate : 76 BPM P-R Interval : 184 ms QRS Duration : 104 ms Q-T Interval : 374 ms QTC Calculation(Bazett) : 420 ms Calculated P [place] : 68 degrees Calculated R [place] : -57 degrees Calculated T [place] : 32 degrees Normal sinus rhythm Left axis deviation RSR v-1 Abnormal ECG No previous ECGs available Confirmed by CHRISTIAN BEYER MD ([id number]) on 08/31/2022 8:23:33 PM NAME : CAYLA HICKEY PID : [id number] : 1955 Gender : Female Race : ORD : [id number] Procedure Date : Aug 31 2022 09:16:33 Edit Date : Aug 31 2022 20:23:35 Diagnosis: Normal sinus rhythm Left axis deviation RSR v-1 Abnormal ECG No previous ECGs available Confirmed by CHRISTIAN BEYER MD ([id number]) on 08/31/2022 8:23:33 PM Test Reason : STAT Location : 0 : ED 1 Overread By : CHRISTIAN BEYER MD Edited By : CHRISTIAN BEYER MD Referred By : , Acquired by : RNL, [facility] ED NOTEon 08-31-2022 ED NOTE HNO ID: [id number] Author: Dunia Crooks RN Service: Nursing Author Type: Registered Nurse Type: ED Notes Filed: 08/31/2022 12:06 PM Note Text: Pt states she did not have improvement of pain after receiving Toradol. Pt discharged and verbalizes understanding of home going instructions. [facility] ED NOTE HNO ID: [id number] Author: Dunia Crooks RN Service: Nursing Author Type: Registered Nurse Type: ED Notes Filed: 08/31/2022 9:16 AM Note Text: Pt declines Toradol at this time. Verbalizes understanding to notify nurse if she would like to have the medication. Dr. Baron notified. [facility] ED NOTE HNO ID: [id number] Author: Dunia Crooks RN Service: Nursing Author Type: Registered Nurse Type: ED Notes Filed: 08/31/2022 9:15 AM Note Text: C/O midsternal CP waking her from sleep this AM. Denies SOB, but has felt more fatigued recently. Pt States she has pain to the right side of her neck and upper right arm that worsens with movement. Pt appears anxious. Rates pain 2/10. Normal [facility] ED PROV NOTEon 08-31-2022 ED PROV NOTE HNO ID: [id number] Author: Iliana Baron MD Service: Emergency Medicine Author Type: Physician Type: ED Provider Notes Filed: 08/31/2022 11:55 AM Note Text: ED Provider Note Patient Name: Cayla Hickey : 1955 SERVICE DATE: 08/31/22 History Patient presents with: Chest Pain: CP with pain in right side of neck and right upper arm. Patient states she developed some midsternal chest achiness at around 6:00 while laying in bed. There was no diaphoresis or vomiting. States it radiated a bit towards the right upper arm and the right side of the neck. Denies any trauma or injury. Has no history of known heart disease but does have high blood pressure, cholesterol, and family history of heart disease. She does have fibromyalgia. No fevers or chills or cough. She called EMS for transport to the department. Denies smoking history or diabetes. HPI otherwise unremarkable History provided by: Patient PAST MEDICAL HISTORY Diagnosis Date High blood pressure High cholesterol PAST SURGICAL HISTORY Procedure Laterality Date COLPOSCOPY W LOOP CONIZATION 1984 HAND/FINGER SURGERY UNLISTED S BALLOON,UTERINE ABLATION 33845 FAMILY HISTORY Problem Relation Age of Onset Ischemic Heart Disease Mother Stroke Father Hypertension Unknown Breast Cancer Unknown Social History Tobacco Use Smoking status: Never Smokeless tobacco: Never Substance and Sexual Activity Alcohol use: No Drug use: No Sexual activity: Not on file ALLERGIES Allergen Reactions Aleve [Naproxen Sod* Anaphylaxis Norgesic [Orphenadr* Anaphylaxis Review of Systems All other systems reviewed and are negative. Physical Exam Vitals [08/31/22 0829] BP Pulse Temp Temp src Resp SpO2 Weight Height 182/81 79 36.8 ?C (98.2 ?F) Oral 16 99 % 82.1 kg (180 lb 14.4 oz) 1.753 m (5' 9) Physical Exam Vitals and nursing note reviewed. Constitutional: General: She is not in acute distress. Appearance: Normal appearance. HENT: Mouth/Throat: Mouth: Mucous membranes are moist. Cardiovascular: Rate and Rhythm: Normal rate and regular rhythm. Pulmonary: Effort: Pulmonary effort is normal. Breath sounds: Normal breath sounds. Musculoskeletal: Cervical back: Neck supple. Right lower leg: No edema. Left lower leg: No edema. Skin: General: Skin is warm and dry. Neurological: General: No focal deficit present. Mental Status: She is alert and oriented to person, place, and time. Psychiatric: Comments: Slightly anxious Diagnostic Testing ED Labs Ordered and Reviewed BASIC METABOLIC PNL - Abnormal; Notable for the following components: Result Value Ref Range Glucose 141 (*) 70 - 100 mg/dL All other components within normal limits CBC + DIFF - Abnormal; Notable for the following components: Hematocrit 34.2 (*) 36.0 - 46.0 % MPV 8.7 (*) 9.0 - 12.7 fL Abs Lymph 0.75 (*) 1.00 - 4.00 k/uL All other components within normal limits Narrative: This is an appended report. These results have been appended to a previously verified report. HIGH SENSITIVITY TROPONIN I - Normal HIGH SENSITIVITY TROPONIN I - Normal Procedures ED Course / Clinical Impression Clinical Impressions as of 08/31/22 1155 Nonspecific chest pain MDM / Disposition / Plan Each lab and radiology result has been reviewed, and all lab results have been compared to available recent prior values. A summary of medications ordered and administered in the treatment of this patient is detailed below: Medications keTORolac 15 mg injection (TORADOL) (15 mg INTRAVENOUS Given 08/31/22 1028) Patient testing shows EKG with no acute injury process. Troponin and repeat were okay. At this time I do not suspect ACS. Her BMP shows no acute electrolyte abnormality or kidney injury. CBC has no signs of infection or anemia. Chest x-ray unremarkable, no pneumothorax, pneumonia or heart failure. I gave her some Toradol and she was resting comfortably on my reassessment. The exact cause of her pain remains to be determined, it is nonspecific at this time. Her heart score is less than 7. She is safe for discharge home and [facility] follow-up. Additional Tests or Interventions Additional tests/procedures: ECG EKG INTERPRETATION: Ordered and Reviewed Rhythm: Normal sinus rhythm Rate: 76 [place]: Left axis deviation Intervals: Normal [place] interval QRS Complex: Normal ST Segment: Normal ST-T segments QT Interval: Normal Compared with Prior: None available Interpretation performed by Iliana Baron MD Disposition The patient was discharged. Counseled patient regarding lab results, radiology results and suspected diagnosis. As well as the need for follow-up. Discharged home with verbal and written instructions. They were instructed to return as needed for persistent or worsening symptoms or any new concerns. SIGNATURE: MD TOD Connelly, ILIANA 08/31/22 1155 Normal [facility] HIGH SENSITIVITY TROPONIN Io n 08-31-2022 Tropinin I.cardiac panel High sensitivity method <2.5 Normal 0.0-34.0 [facility] Comment on above: Order Comment: [facility] Type: BLOOD SPECIMEN Ordering Facility: [facility] Address: [address] [place] [address] Result Comment: This assay uses different antibodies than our current assay, and assays, even by the same chemicals distiller may recognize different regions of the antibody and cannot be used interchangeably. Expect results of this assay to run higher than the previous assay. Performed By: #### H STROP #### [facility] CLIA [id number] [address] [place] [address] OF [facility] Tropinin I.cardiac panel High sensitivity method 3.1 pg/mL Normal 0.0-34.0 [facility] Comment on above: Order Comment: Salty desai Type: BLOOD SPECIMEN Ordering Facility: [facility] Address: [address] [place] [address] Result Comment: This assay uses different antibodies than our current assay, and assays, even by the same chemicals distiller may recognize different regions of the antibody and cannot be used interchangeably. Expect results of this assay to run higher than the previous assay. Performed By: #### H STROP #### [facility] CLIA [id number] [address] [place] [address] [place] XR CHEST 2V FRONTAL/LATon XR CHEST 2V FRONTAL/LAT * * *Final Report* * * DATE OF EXAM: Aug 31 2022 9:08AM [id number] - XR CHEST 2V FRONTAL/LAT / PROCEDURE REASON: Chest pain, nonspecific * * * * Physician Interpretation * * * * EXAMINATION: CHEST RADIOGRAPH (2 VIEW FRONTAL and LATERAL) CLINICAL HISTORY: Chest pain, nonspecific MQ: [id number]_6 EXAM DATE/TIME: 08/31/2022 9:08 AM COMPARISON: No relevant prior studies available. RESULT: Lines, tubes, and devices: None. Lungs and pleura: Trachea is midline. Pulmonary vasculature is unremarkable. No focal consolidation, pleural effusion, or pneumothorax. Mild lung hyperinflation can be related to emphysematous change. Cardiomediastinal silhouette: Normal cardiomediastinal silhouette. Bones and soft tissues: Unremarkable. IMPRESSION: No acute radiographic abnormality. Hospice Nurse Practitioner: PSCB Transcribe Date/Time: Aug 31 2022 9:09A Dictated by : ARIANNE ANDRES MD This examination was interpreted and the report reviewed and electronically signed by: ARIANNE ANDRES MD on Aug 31 2022 9:12AM EST [id number] N Normal [facility] 1,25-dihydroxyvitamin D3 [Ma ss/Vol]on 01-02-2022 VIT D1,25 DIHYDROXY 42.1 pg/mL Normal 19.9-79.3 [facility] Comment on above: Order Comment: Speci men Type: BLOOD SPECIMEN Ordering Facility: [facility] Address: [address] [place] [address] Performed By: #### 1 649-3 #### [facility] CLIA [id number] [address] [place] [address] [place] Clinical Summary: HMSPatient IDon 01-06-2018 OOP Invalid Interpretation Code [facility] Work Phone: Office Visit: Follow-up by Magdi hughes: 4on 01-06-2018 NEGATED: Highlighted rowDocumentation of current medications (procedure) Done Invalid Interpretation Code [facility] Work Phone: Vital Signs Date Time Vital Sign Value Performing Clinician Facility 10-24-2023 10:49-0400 Diastolic Blood Pressure Non-Invasive 78 mm[Hg] DR WASHINGTON ALICEA MD [facility] 10-24-2023 10:49-0400 Heart rate 62 /min DR WASHINGTON ALICEA MD [address] [place] [address] 10-24-2023 10:49-0400 Respiratory rate 16 /min DR WASHINGTON ALICEA MD [address] [place] [address] 10-24-2023 10:49-0400 Systolic Blood Pressure Non-Invasive 161 mm[Hg] DR WASHINGTON ALICEA MD [address] [place] [address] 10-24-2023 10:29-0400 Diastolic Blood Pressure Non-Invasive 79 mm[Hg] DR WASHINGTON ALICEA MD [address] [place] [address] 10-24-2023 10:29-0400 Heart rate 63 /min DR WASHINGTON ALICEA MD [address] [place] [address] 10-24-2023 10:29-0400 Systolic Blood Pressure Non-Invasive 153 mm[Hg] DR WASHINGTON ALICEA MD [address] [place] [address] 10-24-2023 10:24-0400 Diastolic Blood Pressure Non-Invasive 89 mm[Hg] DR WASHINGTON ALICEA MD [address] [place] [address] 10-24-2023 10:24-0400 Heart rate 57 /min DR WASHINGTON ALICEA MD [address] [place] [address] 10-24-2023 10:24-0400 Systolic Blood Pressure Non-Invasive 153 mm[Hg] DR WASHINGTON ALICEA MD [address] [place] [address] 10-24-2023 09:35-0400 Heart rate 64 /min DR WASHINGTON ALICEA MD [address] [place] [address] 10-24-2023 09:09-0400 Heart rate 67 /min DR WASHINGTON ALICEA MD [address] [place] [address] 10-24-2023 08:45-[address] WASHINGTON ALICEA MD [address] [place] [address] 10-24-2023 08:45-[address] WASHINGTON ALICEA MD [address] [place] [address] 10-24-2023 08:45-0400 Body temperature 98.24 [degF] DR WASHINGTON ALICEA MD [address] [place] [address] 10-24-2023 08:45-0400 Respiratory rate 18 /min DR WASHINGTON ALICEA MD [address] [place] [address] 10-23-2023 12:17-0400 Body height [address] WASHINGTON ALICEA MD [address] [place] [address] 10-23-2023 12:17-0400 Body weight 79.[address] WASHINGTON ALICEA MD [address] [place] [address] 10-23-2023 12:17-0400 Body weight 25.67 kg/m2 DR WASHINGTON ALICEA MD [address] [place] [address] NEGATED: Highlighted [id number] 13:41-0400 BMI (Body Mass Index) 25.94 kg/m2 Jen Rene MECHATRONICS ENGINEER [facility] Work Phone: NEGATED: Highlighted [id number] 13:41-0400 BP Diastolic 86 mm[Hg] Jen Rene MECHATRONICS ENGINEER [facility] Work Phone: NEGATED: Highlighted [id number] 13:41-0400 BP Systolic 146 mm[Hg] Jen Rene MECHATRONICS ENGINEER [facility] Work Phone: NEGATED: Highlighted [id number] 13:41-0400 Height 175.26 cm Jen Rene MECHATRONICS ENGINEER [facility] Work Phone: NEGATED: Highlighted [id number] 13:41-0400 Height 175 cm Jen Rene MECHATRONICS ENGINEER [facility] Work Phone: NEGATED: Highlighted [id number] 13:41-0400 Pulse (Heart Rate) 69 /min Jen Rene MECHATRONICS ENGINEER [facility] Work Phone: NEGATED: Highlighted [id number] Weight 79.38 kg Jen López LPN [facility] Work Phone: NEGATED: Highlighted [id number] Weight 80 kg Jen López LPN [facility] Work Phone: Encounters Encounter Date Encounter Type Care Provider Facility Start: 02-10-2025 End: 02-10-[address] MICHI TAM DO Facility:[facility]ST[facility] Start: 02-10-2025 End: 02-10-[address] MICHI TAM DO [facility] Start: 10-20-2024 End: 10-20-[address] [facility] Start: 08-16-2024 End: 08-20-2024 ambulatory [facility] [employer] Facility:[facility] Start: 08-16-2024 End: 08-20-2024 Outreach Lab [facility] C[facility] [employer] PROGRAM[employer] [facility] Start: 03-27-2024 End: 03-27-2024 ambulatory Michi Yonatan Facility:[facility] Start: 03-02-2024 End: 03-02-2024 ambulatory Michi Yonatan Facility:[facility] Start: 01-08-2024 End: 01-08-[address] MICHI TAM DO Facility:[facility] Start: 11-12-[address] [facility] Start: 10-24-2023 End: 10-24-[address] MICHI TAM DO Facility:[facility] Start: 10-24-2023 End: 10-24-[address] WASHINGTON ALICEA MD [facility] Start: 10-17-2023 End: 10-17-[address] MICHI TAM DO Facility:[facility] Start: 09-29-2023 End: 09-29-[address] MICHI FAITHR DO Facility:[facility] Start: 09-29-2023 End: 09-29-[address] MICHI TAM DO [facility] Start: 06-27-2023 End: 06-27-[address] MICHI FAITHR DO Facility:[facility] Start: 06-27-2023 End: 06-27-[address] WASHINGTON ALICEA MD [facility] Start: 06-24-2023 End: 06-24-[address] MICHI FATIHR DO Facility:[facility] Start: 02-20-2023 End: 02-20-[address] MICHI TAM DO Facility:[facility] Start: 02-20-2023 End: 02-20-[address] MICHI TAM DO [facility] Start: 01-30-2023 End: 01-30-[address] MICHI TAM DO Facility:[facility] Start: 01-30-2023 End: 01-30-[address] MICHI TAM DO [facility] Start: 11-28-2022 End: 11-28-2022 ambulatory [facility] Work Phone: Start: 11-28-2022 End: 11-28-2022 Discharged Recurring [facility] Work Phone: Start: 09-06-2022 Telephone encounter Rosa Brown MD Work Phone: [facility] Comment on above: Patient Update Appointment Start: 08-31-2022 End: 08-31-2022 Emergency department patient visit ILIANA BARON Facility:[id number] Start: 03-28-2022 Registered Recurring [facility] Start: 01-07-2022 End: 01-07-2022 ambulatory [facility] Work Phone: Start: 01-07-2022 End: 01-07-2022 Discharged Recurring [facility] Start: 01-06-2018 End: 01-06-2018 Patient encounter procedure Dexter Kevin MD Work Phone: [facility] Work Phone: Start: 01-06-2018 End: 01-06-2018 Pt evaluation Dexter Kevin MD Work Phone: [facility] Work Phone: Procedures Date Procedure Procedure Detail Performing Clinician Start: 04-03-[address] testing DR WASHINGTON ALICEA MD Start: 01-06-2018 End: 01-06-2018 BMI documented as above normal parameters - follow-up documented Dexter Kevin MD Work Phone: Start: 01-06-2018 End: 01-06-2018 Current medications documented Dexter Kevin MD Work Phone: Start: 01-06-2018 End: 01-06-2018 Pain assessment documented as positive - follow-up documented Dexter Kevin MD Work Phone: Start: 01-06-2018 End: 01-06-2018 Radiologic examination pelvis 1/2 views Dexter Kevin MD Work Phone: Start: 01-06-2018 End: 01-06-2018 Tobacco non-user Dexter Kevin MD Work Phone: Plan of Treatment Date Care Activity Detail Author Start: 08-31-2025 DIABETES SCREEN DIABETES SCREEN [facility] Start: 07-14-2022 DEPRESSION ASSESSMENT DEPRESSION ASSESSMENT [facility] Start: 03-14-2022 Influenza vaccination INFLUENZA (#1) [facility] Start: 01-06-2018 End: 01-06-2018 Appointment Appointment [facility] Work Phone: Start: 10-29-2007 SHINGRIX VACCINE (1 of 2) SHINGRIX VACCINE (1 of 2) [facility] Start: 2002 COLOGUARD (FIT-DNA) COLOGUARD (FIT-DNA) [facility] Start: 2002 Colonoscopy COLONOSCOPY [facility] Start: 2002 COLORECTAL CANCER SCREENING COLORECTAL CANCER SCREENING [facility] Start: [address] COLONOGRAPHY [facility] Start: 2002 FECAL OCCULT BLOOD FECAL OCCULT BLOOD [facility] Start: 2002 LIPID SCREEN LIPID SCREEN [facility] Start: 2002 SIGMOIDOSCOPY SIGMOIDOSCOPY [facility] Start: 1997 Mammography MAMMOGRAM [facility] Start: 10-29-1987 HPV TESTING HPV TESTING [facility] Start: 1978 PAP TESTING PAP TESTING [facility] Start: 1976 Urine microalbumin profile DTAP,TDAP,TD (1 - Tdap) [facility] Start: 10-29-1975 ANNUAL PCP TEAM CHRONIC DISEASE VISIT ANNUAL PCP TEAM CHRONIC DISEASE VISIT [facility] Start: 10-29-1975 BP CONTROLLED (<130/80) BP CONTROLLED (<130/80) [facility] in Start: 10-29-1975 HEPATITIS C SCREENING HEPATITIS C SCREENING [facility] Start: 10-29-1975 HIV SCREENING HIV SCREENING [facility] Start: 04-29-1958 COVID-19 VACCINE (#1) COVID-19 VACCINE (#1) [facility] Patient Education \cps-sql1\CPS_ PtEducatio n\htn.pdf [facility] Work Phone: Immunizations Immunization Date Immunization Notes Care Provider Fa cility No information available. Jen López LPN [facility] Work Phone: Payers Date Payer Category Payer [employer] others) [id number] 2023 Self-pay [id number] 2023 [employer] ([employer] others) [id number] 2022 Medicare [id number] 2022 Medicare [id number] 2021 Private Health Insurance [facility] [id number] 1999 [employer] ( and others) [id number] 1999 Unknown [facility] [id number] 1999-Present [phone] [address] [place] [address] Indemnity [id number] 1957 Unknown [id number] 1955 Unknown [id number] 1957 Unknown [id number] [id number] 1957 Unknown [id number] 2.16.840.1.670040.3.579.2 1957 Unknown [id number] 2.16.840.1.586320.3.579.2 1957 Unknown [id number] 2.16.840.1.018618.3.579.2 1955 Unknown [id number] 2.16.840.1.486007.3.579.2 1957 Unknown [id number] 2.16.840.1.925299.3.579.2 1955 Unknown [id number] [id number] .627 1955 Unknown [id number] 2..840.1.974049.3.579.2 .627 1955 Unknown [id number] 2.16.840.1.027074.3.579.2 .627 Unknown [id number] [id number] .462 Unknown [id number] 2..[id number] .462 Social History Date Type Detail Facility Start: 01-06-2018 End: 01-06-2018 Assertion Unknown if ever smoked [facility] Work Phone: Start: 1955 Sex Assigned At Female [facility] Start: 03-24-2014 End: 05-03-2019 Tobacco smoking status OKIS Never smoked tobacco [facility] Comment on above: No Tobacco/Smoke Exp osure Start: 03-24-2014 Tobacco use and exposure Smokeless tobacco non-user [facility] Start: 04-06-2014 Alcohol intake Current non-dr service tester of alcohol (finding) [facility] Start: 1955 Sex Assigned At Not on file C [facility] Sexual Orientation [facility] Start: 01-06-2019 Sex Female (finding) [facility] Functional Status Date Assessment Result Facility 10-24-2023 Functional Status Independent [facility] 10-24-2023 Functional Status Standard Safet y ID band on, Allergy Band on [facility] 10-23-2023 Functional Status Sensory Deficits None [facility] Mental Status Date Assessment Result Facility 10-24-2023 Mental Status Orientation Oriented x [address] [facility] 10-24-2023 [facility] 09-06-2022 to 08-19-2024 Note Date & Type Note Facility 08-19-2024 Note . MICRO - Microbiology PROCEDURE: Urine Culture [*1] SOURCE: Urine, Clean Catch BODY SITE: COLLECTED DATE/TIME: 08/16/2024 15:35 EST RECEIVED DATE/TIME: 08/17/2024 15:19 EST START DATE/TIME: 08/17/2024 15:19 EST FREE TEXT SOURCE: FINAL REPORTS Final Report [] Verified Date/Time/Personnel: 08/19/2024 13:27 EST >100,000 cfu/ml Staphylococcus epidermidis PRELIMINARY REPORTS Preliminary Report [] Verified Date/Time/Personnel: 08/18/2024 11:27 EST >100,000 cfu/ml Staphylococcus epidermidis MARIBELL to follow SUSCEPTIBILITY RESULTS Staphylococcus epidermidis Antibiotic MARIBELL Dilut MARIBELL Inter Ampicillin <=2 Beta Lactamase Positive Ampicillin/ <=8/4 Susceptible Sulbactam Azithromycin <=2 Susceptible Cefepime <=4 Susceptible Ciprofloxacin <=1 Susceptible ID Panel Not Not Applicable Applicable Imipenem <=4 Susceptible Levofloxacin <=1 Susceptible Nitrofurantoin <=32 Susceptible Oxacillin <=0.25 Susceptible Penicillin 0.25 Beta Lactamase Positive Piperacillin/ <=8 Susceptible Tazobactam Trimethoprim/ >2/38 Resistant Sulfa Vancomycin 1 Susceptible Performing Locations *1: This test was performed at: [facility], [address] [place] [address], [facility] , [facility] 10-24-2023 Hospital Discharg e instructions Patient Education 10/24/2023 09:20:24 Radiology- CT Coronary Angiogram (CUSTOM) [place] Coronary CT Angiogram (Coronary CTA or Cardiac CTA) Discharge Instructions [facility] [address] [place] [address] Today, you had a Coronary CT Angiogram. This procedure was done to look at the anatomy of your heart and the surrounding vessels. The images obtained are to help evaluate the presence of coronary heart disease. These instructions should be followed after your procedure to reduce the chance of experiencing complications. Please follow the instructions below to reduce the chance of experiencing complications. Activity: Rest for the remainder of the day. You may resume your normal activity tomorrow. Avoid alcoholic beverages for 24 hours after your procedure. Do not drive or operate heavy machinery for 24 hours after your procedure. Do not make any legal decisions for 24 hours after your procedure. Diet: Resume your normal diet as tolerated. Medication: Please resume medications as scheduled. When to seek medical help: Arm, neck or jaw pain Angina (chest pain) or chest discomfort Shortness of breath Dizziness or lightheaded Hives or itching If you experience any of these issues during the first 24 hours, please follow the instruction below or go to the Emergency Department: 8:00 am- 5:00 pm call [phone] After 5:00 pm call [phone] After 24 hours, contact the physician who ordered this procedure for you. Obtaining test results: Please make an appointment with your doctor to obtain your test results. They are usually available within 4 to 5 business days. Do not assume everything is normal if you have not heard from your doctor or medical facility. It is important for you to follow up on all of your test results. Follow Up Care 06/25/2023 08:29:20 With:WASHINGTON ALICEA MD Address: [address] [place] [address] [address] [facility] [place] [address]- [phone] When: Unknown Comments:Follow-up as needed With:Go to emergency room if symptoms worsen Address:Unknown When: Unknown [facility] 10-24-2023 Note ORIGINAL EXAMINATION: CT THORAX WITH CONTRAST EXTRACARDIAC 10/24/2023 10:45 am TECHNIQUE: CT of the chest with the administration of intravenous contrast. Multiplanar reformatted images are provided for review. Automated exposure control, iterative reconstruction, and/or weight based adjustment of the mA/kV was utilized to reduce the radiation dose to as low as reasonably achievable. Cardiac images were obtained and reported separately in a report from cardiology. COMPARISON: 02/06/2017 HISTORY: ORDERING SYSTEM PROVIDED HISTORY: Reason for Exam: chest pain intermittent palpitations x 15 yrs worsening chest pain FINDINGS: The cardiac CT is reported separately by the cardiology service No suspicious findings seen in the visualized portion of the abdomen. A lymph node in the subcarinal space measures 1.1 cm in short axis. Other borderline lymph nodes are similar to the prior study.. No suspicious pulmonary nodules identified. No suspicious osseous lesion. IMPRESSION: 1. New borderline enlarged subcarinal space lymph node could be reactive. A 3 month follow-up CT advised 2. No suspicious pulmonary nodules identified. 3. The cardiac CT is reported separately by the cardiology service. Interpreted by: Bogdan San MD Preliminary Report By: Bogdan San MD Electronically signed By Bogdan San MD Dictated Date: 10/24/2023 4:01:49 PM Prelim Date: 10/24/2023 4:17:02 PM Sign Date: 10/24/2023 4:17:02 PM Ordering Provider: WASHINGTON ALICEA [facility] 10-24-2023 Summary of episod e note Discharge Instructions Thank you for allowing [facility] to assist you with your healthcare needs. The following is important discharge information regarding your hospital visit. Your Care Team MICHI TAM DO What to do next Scheduled Follow-Up Appointments Appointment Type When With Where Contact InformationPC OV 11/03/2023 01:50 PM EDT MICHI TAM DO [facility] [place] Follow Up Appointments Follow Up with WASHINGTON ALICEA MD When Why: Follow-up as needed Where: [address] [facility] [address] [facility] [place] [address]- [phone] Follow Up with Go to emergency room if symptoms worsen When Allergies Aleve Norgesic Medications Please ask your primary doctor or pharmacist before taking any other medication not listed, including over the counter drugs, herbal medications, vitamins and or supplements as they may interact with your home medications. What How Much When Instructions Last Dose Unchanged albuterol (ProAir HFA MDI (90 mcg/ inh) inhalation aerosol) 2 puff(s) by inhalation Every 4 hours as needed for as needed for wheezing Unchanged cholecalciferol (Vitamin D3) See instructions 1 tab(s) Oral Daily Unchanged ergocalciferol (ergocalciferol 50,000 intl units (1.25 mg) oral capsule) See instructions 1 cap(s) Oral every other week Unchanged lisinopril (lisinopril 40 mg oral tablet) 1 tab(s) by mouth Every day Unchanged magnesium oxide (Magnesium 250 mg tablet) See instructions 1 tab(s) Oral qDay Unchanged metoprolol (metoprolol succinate 25 mg oral TABLET extended release) 1 tab(s) by mouth Once a day Take 1 tab PO evening before procedure that is scheduled for Unchanged Misc Medication TMG take one tablet daily. Unchanged zinc acetate (zinc (as acetate) 25 mg oral capsule) See instructions 1 cap(s) Oral Please take this list to your next doctor s visit. Bring all medications you take, including over the counter medications, herbals and other supplements with you to your doctor s visit. Patients and families are reminded to discard old lists and to update any records with all medication providers or retail pharmacies. Education Materials [place] Coronary CT Angiogram (Coronary CTA or Cardiac CTA) Discharge Instructions [facility] [address] [address] Today, you had a Coronary CT Angiogram. This procedure was done to look at the anatomy of your heart and the surrounding vessels. The images obtained are to help evaluate the presence of coronary heart disease. These instructions should be followed after your procedure to reduce the chance of experiencing complications. Please follow the instructions below to reduce the chance of experiencing complications. Activity: Rest for the remainder of the day. You may resume your normal activity tomorrow. Avoid alcoholic beverages for 24 hours after your procedure. Do not drive or operate heavy machinery for 24 hours after your procedure. Do not make any legal decisions for 24 hours after your procedure. Diet: Resume your normal diet as tolerated. Medication: Please resume medications as scheduled. When to seek medical help: Arm, neck or jaw pain Angina (chest pain) or chest discomfort Shortness of breath Dizziness or lightheaded Hives or itching If you experience any of these issues during the first 24 hours, please follow the instruction below or go to the Emergency Department: 8:00 am- 5:00 pm call [phone] After 5:00 pm call [phone] After 24 hours, contact the physician who ordered this procedure for you. Obtaining test results: Please make an appointment with your doctor to obtain your test results. They are usually available within 4 to 5 business days. Do not assume everything is normal if you have not heard from your doctor or medical facility. It is important for you to follow up on all of your test results. Additional Information VACCINATE! IT SAVES LIVES! Members of the community who have not yet received the COVID-19 vaccine and would like to receive it can visit one of [facility] vaccine clinics. There are many vaccine clinic locations within the [facility]. For locations and available times, please visit https://gettheshot.coronavirus.o hio.gov/. It is important to note that some COVID mobile vaccine clinics are held outdoors and may be canceled in rainy or stormy conditions. To learn more about pediatric vaccinations (ages 5-11), we invite you to visit the [facility] webpage. https://www.[facility].org/p ages/5414-Qjayo-Zwgcvuvypdi-Freq lqiqgg-Txnax-Klrqwivfi.html To learn more about the COVID-19 vaccine, we invite you to visit the CDC website for a list of frequently asked questions.https://www.cdc.gov/co ronavirus/2019-ncov/vaccines/faq .html [facility] Patient Portal Access Instructions: Stay connected with your healthcare team and access your personal medical information anytime with the [facility] Patient Portal. Please follow the directions below to create your [facility] account: 1.Access the email account you provided upon registration to the hospital/physician office.2.Look for an invitation email from [facility].3.Open the email and access the invitation link: Accept Invitation to [facility].4.Fill in the required garcia to create your account. To access your account, visit [employer]. Click the blue button labeled Access Patient Portal and then log in with the username and password that you created in the steps above. You will be able to view your test results, lab results, a summary of your visits, upcoming appointments and more. There is also a convenient messaging option where you can send secure messages to your provider. In addition, you will have the ability to download any documents or summaries to your computer and/or send the information securely to a physician. Remember that your healthcare information is confidential, so carefully consider who you will allow to register on the [facility] Patient Portal for access to your information. You can also access the [facility] Patient Portal on the [facility] harjit. Simply click on Patient Portal and then log into your account. If you would like to receive a full copy of your medical records, please contact the [facility] Medical Records Department by calling [phone], Friday through Friday between 8 a.m. and 4:30 p.m. HOW TO SAFELY DISPOSE OF PRESCRIPTION MEDICATIONS Please use one of the following methods to safely dispose of your unused medications. 1.Use a drug disposal kit: the drug disposal pouch allows you to safely discard your old and unused drugs. Ask your nurse to give you one when you are discharged.2.Visit a local take-back location: Many local pharmacies and police departments have programs that collect old and unwanted prescription drugs. Call your local pharmacy or go to http://LEPOW.Deep Nines/7A4Jj2w to find one close to you.3.Make use of household items: Use cat litter or old coffee grounds to dispose medications if other options are not available. Mix your drugs with these household products, seal them in an airtight container and throw it into the garbage. Call [facility]: [phone] to be sure your drugs can be disposed of in this way. Some medicines may require a different approach.4.Never flush your medications down the toilet. IF YOU HAVE BEEN PRESCRIBED AN OPIOID FOR PAIN If you have been prescribed an opioid (such as hydrocodone, oxycodone or morphine), it is critical to understand the possible side effects and risks of opioid pain medications. Even when taken as directed, opioids can have several side effects including: Tolerance, meaning you might need to take more of a medication for the same pain relief. Nausea, vomiting and/or constipation. Sleepiness, dizziness, dry mouth, confusion, depression or itching. Physical dependence, meaning you have withdrawal symptoms when a medication is stopped, can develop within a few days. KNOW YOUR RESPONSIBILITIES It is important to know exactly how much and how often to take the opioid pain medications you are prescribed. Never take opioids in higher amounts or more often than prescribed. Do not combine opioids with alcohol or other drugs that cause drowsiness, such as benzodiazepines, also known as benzos, including diazepam and alprazolam, muscle relaxants or sleep aids. Never sell or share prescription opioids. This is illegal. Store opioids in a secure place and out of reach of others (including children, family, friends and visitors). The last page of this document has been signed and retained as a CHART COPY. Signatures Patient Education Materials Radiology- CT Coronary Angiogram (CUSTOM) Medication Leaflets My discharge plan and instructions have been reviewed and explained to me and IMICHAEL PAULA J understand my current condition and have read and understand these discharge instructions. I have received a written copy of the plan/instructions. If I have questions, I am aware that I should contact my doctor. Patient/General Counsel Signature: Date/Time: Relationship to Patient: Witness Name/Signature: Date/Time: [facility] 06-27-2023 Note Exam Date Time Procedure Performing Provider Status 06/27/23 3:52 PM Echocardiogram, Adult (AOH) Auth (Verified) [facility] 07-05-2023 Discharge summary Author Pete Cote [facility] January 15, 2023 8:44am Note Date/Time January 15, 2023 8:44a m [facility] Physical Therapy [facility] [address] [facility] [address] [place] [address] / REHABILITATION SERVICES DISCHARGE SUMMARY MR#: [id number] Acct: [id number] Name: CAYLA HICKEY Rep #: [id number] 2 : 1955 67 From: Pete Cote PT, ATC Referring Dr.: Dr. Tina Winkler, DO Status: REG RCR Insurance: MEDICARE PART A [facility] Patient Information Patient Information: CAYLA HICKEY was seen in my office for initial evaluation on 10/03/22. The following Plan of Care was established for this patient: POC Established Initial Frequency: 2-3x /Week Initial Duration: 4 Weeks Anticipated Interventions Patient/Client Instruction: Educate patient on: Condition and Plan of Care For the Purpose of:: To improve self management Therapeutic Exercise to Include: Strength training, Endurance training, Body mechanics, Postural training, Dynamic Lumbar Stabilization, William Exercises and Scapular Strength/Stabilization For the Purpose of:: To decrease pain, To increase ROM and To improve muscle performance and motor function Cryotherapy (ice pack, ice massage): Yes Thermo therapy (hot pack): Yes For the Purpose of:: To decrease pain Last Seen Last Seen: This patient was last seen in our office . Pertinent comments regarding their Physical therapy will appear below: Pt was treated for 8 PT visits for R shoulder pain through the date of 11/28/22. Pt has not returned through todays date and is discontinued at this time. At this point I will be discontinuing this patient from physical therapy. I would be happy to see this patient again in the future if found appropriate by the physician. Thank you! Pete Cote, PT, ATC Balance/Gait/Functional tests Balance/Special Test Scores Oswestry Neck Score: 17 <Electronically signed by Pete Cote PT, ATC> 01/15/23 0844 CC: Dr. Tina Winkler, ~ [facility] Signed [facility] Work Phone: [phone]) 877-572302-24-2023 Miscellaneous Notes* Telephone Encounter - Freddy Olmstead RN - 09/06/2022 10:51 AM EST The patient would be considered a new patient to Dr. Brown. First available new patient appointment is in November at [facility]. If patient is willing please see if another Manager [facility] can accomodates an earlier appointment. Thanks, Freddy Olmstead RN September 06, 2022 10:52 AM * Telephone Encounter - Inna Abernathy - 09/06/2022 9:49 AM EST Patient left a voicemail asking for a call back to schedule an ER follow up appointment with Dr. Brown. Please call patient at [phone]. [facility] Future Appointments Appointment Date:02/06/2023 10:30:00 AM Scheduled Provider:MICHI TAM DO Location:[facility] Appointment Type:PC OV Diagnostic Tests Pending * Cyclic Citrullinated Peptide 01/30/23 * Rheumatoid Factor 01/30/23 * Antinuclear Antibody Screen, Serum 01/30/23 Future Scheduled Tests Laboratory* Lipid Profile 12/11/22 * Complete Metabolic Panel 12/11/22 [facility] evaluation + Plan note Future Appointments Appointment Date:04/28/2023 09:30:00 AM Scheduled Provider: Location:[facility] Appointment Type:PC Nurse Lab Appointment Date:05/08/2023 10:30:00 AM Scheduled Provider:MICHI TAM DO Location:[facility] Appointment Type:PC OV Future Scheduled Tests Laboratory* Urinalysis 02/20/23 * Urine Culture 02/20/23 * A1C Hemoglobin 05/09/23 * Lipid Profile 12/11/22 * Complete Metabolic Panel 05/09/23 * Complete Metabolic Panel 12/11/22 Radiology* XR Sacroiliac Joints Minimum 3 Views 02/20/23 [facility] Evaluation + Plan note Future Appointments Appointment Date:10/02/2023 03:00:00 PM Scheduled Provider:MICHI TAM DO Location:[facility] Appointment Type:PC OV Appointment Date:10/24/2023 10:30:00 AM Scheduled Provider: Location:CT Appointment Type:*CT Coronary Angiography w+w/o Contrast Future Scheduled Tests Laboratory* Urinalysis 02/20/23 * Urine Culture 02/20/23 * A1C Hemoglobin 05/09/23 * Lipid Profile 12/11/22 * Complete Metabolic Panel 05/09/23 * Complete Metabolic Panel 12/11/22 * N-Terminal proBNP 12/24/23 Radiology* XR Sacroiliac Joints Minimum 3 Views 02/20/23 * CT Coronary Angiography w+w/o Contrast 10/24/23 [facility] evaluation + Plan note Future Appointments Appointment Date:11/03/2023 01:50:00 PM Scheduled Provider:MICHI TAM DO Location:[facility] Appointment Type:PC OV Future Scheduled Tests Laboratory* N-Terminal proBNP 12/24/23 Radiology* XR Sacroiliac Joints Minimum 3 Views 02/20/23 [facility] [facility] Evaluation + Plan note Future Appointments Appointment Date:07/03/2023 03:00:00 PM Scheduled Provider:MICHI TAM DO Location:[facility] Appointment Type:PC OV Appointment Date:09/26/2023 02:05:00 PM Scheduled Provider:MICHI TAM DO Location:[facility] Appointment Type:PC OV Appointment Date:10/24/2023 10:30:00 AM Scheduled Provider: Location:CT Appointment Type:CT Coronary Angiography w+w/o Contrast Future Scheduled Tests Laboratory* Urinalysis 02/20/23 * Urine Culture 02/20/23 * A1C Hemoglobin 05/09/23 * Lipid Profile 12/11/22 * Complete Metabolic Panel 05/09/23 * Complete Metabolic Panel 12/11/22 * N-Terminal proBNP 12/24/23 Radiology* XR Sacroiliac Joints Minimum 3 Views 02/20/23 * CT Coronary Angiography w+w/o Contrast 10/24/23 [facility] Evaluation + Plan note Future Appointments Appointment Date:10/21/2024 09:30:00 AM Scheduled Provider:MICHI TAM DO Location:[facility] Appointment Type: OV Follow Up Future Scheduled Tests Laboratory* Thyroid Stimulating Hormone 06/24/24 * Free T4 11/03/23 * A1C Hemoglobin 06/24/24 * Complete Blood Count 06/24/24 * Free T3 11/03/23 * Lipid Profile 06/24/24 * Lipid Profile 05/19/24 * Lipid Profile 11/03/23 * Complete Metabolic Panel 06/24/24 * N-Terminal proBNP 12/24/23 * anti-Thyroid Peroxidase 11/03/23 Radiology* MRI Spine Cervical w/o Contrast 02/20/24 [facility] Evaluation + Plan note Future Appointments Appointment Date:02/21/2025 10:30:00 AM Scheduled Provider:MICHI TAM DO Location:[facility] Appointment Type:PC Wellness Medicare with Labs Diagnostic Tests Pending * Cyclic Citrullinated Peptide 02/10/25 * Rheumatoid Factor 02/10/25 Future Scheduled Tests Laboratory* Lipid Profile 05/19/24 Radiology* MRI Spine Cervical w/o Contrast 02/20/24 [facility] Evaluation noteNo assessment information available [facility] Work Phone: Hospital course Narrative No data available for this section [facility] Hospital Discharge instructions No data available for this section [facility] Progress note No data available for this section [facility] Instructions Instruction Description Start Date Please follow-up with Primar y Care Physician or Manager Sterile for treatment or adjustment of medication regarding elevated blood pressure.Patient advised to follow-up with Primary Care Physician for BMI management. Advance Directives No Advanced Directives Records Found Advance Directive Response Recorded Date/ Time Living Will No June 16 10:56pm Power of Cable Stretcher And Tester No June 16, 2021 10:56pm Assessments There may be information available, but it has not been provided by the sender. Review of System There may be information available, but it has not been provided by the sender. Family History There may be information available, but it has not been provided by the sender.No Family History Records FoundNo Family History Records Found No data available for this section No data available for this section No data available for this section No data available for this section No Family History Records FoundNo Family History Records FoundNo Family History Records Found No data available for this section No data available for this section No data available for this section No Family History Records Found Summary Purpose Chief Complaint and Reason for Visit Chief Complaint ILIOPSOAS BURSITIS,T ROCHANTERIC BURSITIS R HIP LUMBAR SPINAL STENOSIS. RX HERE Chief Complaint NECK/SHOULDER PAIN. RX HERE PT REQUESTED SH Additional Source Comments INFORMATION SOURCE (unrecogn ized section and content) DATE CREATED AUTHOR 01/04/2022 [facility] DATE CREATED AUTHOR AUTHOR'S ORGANIZ ATION 09/07/2022 [facility] DATE CREATED AUTHOR AUTHOR'S ORGANIZ ATION [facility]2023 [facility] DATE CREATED AUTHOR AUTHOR'S ORGANIZ ATION 01/10/2024 [facility] DATE CREATED AUTHOR AUTHOR'S ORGANIZ ATION 04/21/2024 [facility] DATE CREATED AUTHOR AUTHOR'S ORGANIZ ATION 02/13/2025 [facility] Goals (unrecognized section and content) Goals may be documented in a n alternate sectionGoals may be documented in an alternate section No data available for this section No data available for this section No data available for this section No data available for this section No data available for this section No data available for this section No data available for this section Source Comments (unrecognize d section and content) In the event this informatio n is protected by the Federal Confidentiality of Alcohol and Drug Abuse Patient Records regulations: The Federal rules restrict any use of the information to criminally investigate or prosecute any alcohol or drug abuse patient.[facility] the event this information is protected by the Federal Confidentiality of Alcohol and Drug Abuse Patient Records regulations: The Federal rules restrict any use of the information to criminally investigate or prosecute any alcohol or drug abuse patient.[facility] the event this information is protected by the Federal Confidentiality of Alcohol and Drug Abuse Patient Records regulations: The Federal rules restrict any use of the information to criminally investigate or prosecute any alcohol or drug abuse patient.[facility] Reason for Visit (unrecogniz ed section and content) Reason Comments Patient Update Reason Comments Appointment Care Teams (unrecognized sec tion and content) Pest Control Specialist Relationship Specialty Start Date End Date Tina Winkler, [address] [place] [address] PCP - General Family Medicine 08/31/22 Pest Control Specialist Relationship Specialty Start Date End Date Tina Winkler, DO [address] [place] [address] PCP - General Family Medicine 08/31/22 Team Status: Active Member Role Status Dates Dr. Michi Tam , Family Provider Active Dr. Tina Winkler DO Primary Care Provider Active Team Status: Inactive Member Role Status Dates Dr. Tina Winkler DO Primary Care Pr ovider, Attending Provider, Referring Provider Active FOR RECORDS PERTAINING TO PATIENTS WHO ARE OR HAVE BEEN ENROLLED IN A CHEMICAL DEPENDENCY/SUBSTANCEABUSE PROGRAM, SOME INFORMATION MAY BE OMITTED. This clinical summary was aggregated from multiple sources. Caution should be exercised in using it in the provision of clinical care. This summary normalizes information from multiple sources, and as a consequence, information in this document may materially change the coding, format and clinical context of patient data. In addition, data may be omitted in some cases. CLINICAL DECISIONS SHOULD BE BASED ON THE PRIMARY CLINICAL RECORDS. [facility] [employer] [facility]. provides no warranty or guarantee of the accuracy or completeness of information in this document.
[2025-05-30 09:01] LABS: Mucous, Urine 0 SEEN /hpf (<or=2+); Red Blood Cells-Urine 0 SEEN /hpf (0-5)
[2025-05-30 09:14] LABS: Color, Urine Yellow (Yellow); Glucose, Dipstick Normal (Normal); Ketone-Dipstick Negative (Negative); Leukocyte Esterase-Dipstick 500 /ul (Negative); Nitrite-Dipstick Negative (Negative); Occult Blood-Urine 10 /ul (Negative); Protein-Dipstick 15 mg/dl (Negative); Specific Gravity, Urine 1.010 (1.002-1.030); Urine Bilirubin Dipstick Negative (Negative)
[2025-05-30 09:27] LABS: Squamous Epithelial Cells - UA 5-10 SEEN /hpf (5-10)
[2025-05-30] MEDS: Piperacil/Tazobactam 3.375 GM in 0.9% Normal Saline (50mL MB+) 50 ML IV ×3 (11:06→20:08)
--- NOTE | 2025-05-30 11:25 | PCM.HP.STD ---
HPI - General General Date of Admission: 05/30/25 Date of Service: 05/30/25 Chief Complaint: Lower abdominal pain HPI Narrative MONIE RODRIGUEZ, is a 69 F who presents with a 1 day history of worsening abdominal pain. Patient notes the lower abdominal pain started yesterday morning and intensified throughout the day. She thought this was different from the pain she had with her urinary tract infections previously. She notes a history of constipation for which she takes magnesium nightly. She notes being out of town over the weekend and did not take her magnesium for the last few days. She also notes eating handfuls of nuts over the last few days as well. She denies having any previous colonoscopy. She notes feeling feverish last evening with the fever breaking around 10 pm. She denies having any previous similar symptoms. She denies any family history digestive cancers. She notes a family history in ovarian and uterine cancer. She notes her daughter had ovarian cancer at age 22. Patient denies any previous abdominal surgeries. She notes a previous hip replacement and skin lesion removal off of her index finger. CT scan of the ab/pel obtained in the ED demonstrated: IMPRESSION: Borderline hepatomegaly and fatty infiltration of the liver. Findings in keeping with the sigmoid diverticulitis with multiple sigmoid diverticula and inflammatory changes surrounding the sigmoid colon and mesentery. No evidence of fluid collection at this time. Labs include WBC 10.6, Hgb 12.3, Hct 35.9, Plt 188. Urinalysis abnormal with culture pending. [facility] Medical History Hip replacement planned HTN (hypertension) Home Medications ?Medication ?Instructions ?Recorded ?Last Taken ?Type ergocalciferol (vitamin D2) 1,250 1,250 mcg PO .COMPLEX 06/16/21 05/18/25 History mcg (50,000 unit) capsule acetaminophen 500 mg capsule 1,000 mg PO Q6H PRN fever or pain 05/30/25 05/29/25 History lisinopril 40 mg tablet 40 mg PO DAILY 05/30/25 05/29/25 History magnesium 200 mg tablet 200 mg PO DAILY 05/30/25 05/28/25 History Allergy/AdvReac Type Severity Reaction Status Date / Time aspirin (From Norgesic) AdvReac Anaphylaxis Verified 05/30/25 07:42 caffeine (From Norgesic) AdvReac Anaphylaxis Verified 05/30/25 07:42 naproxen (From Aleve) AdvReac Anaphylaxis Verified 05/30/25 07:42 orphenadrine (From Norgesic) AdvReac Anaphylaxis Verified 05/30/25 07:42 Social History Smoking Status: Never smoker ROS Constitutional Constitutional: Reports systems reviewed and no addt'l complaints, except as documented Eyes Eyes: Reports systems reviewed and no addt'l complaints, except as documented ENT HEENT: Reports systems reviewed and no addt'l complaints, except as documented Cardiovascular Cardiovascular: Reports systems reviewed and no addt'l complaints, except as documented Respiratory/Chest Respiratory/Chest: Reports systems reviewed and no addt'l complaints, except as documented Gastrointestinal Gastrointestinal: Reports systems reviewed and no addt'l complaints, except as documented Genitourinary Genitourinary: Reports systems reviewed and no addt'l complaints, except as documented Musculoskeletal Musculoskeletal: Reports systems reviewed and no addt'l complaints, except as documented Integumentary Integumentary: Reports systems reviewed and no addt'l complaints, except as documented Neurologic Neurologic: Reports systems reviewed and no addt'l complaints, except as documented Psychiatric Psychiatric: Reports systems reviewed and no addt'l complaints, except as documented Endocrine Endocrinology: Reports systems reviewed and no addt'l complaints, except as documented Hematologic/Lymphatic Hematologic/Lymphatic: Reports systems reviewed and no addt'l complaints, except as documented Allergic/Immunologic Allergic/Immunologic: Reports systems reviewed and no addt'l complaints, except as documented Vital Signs Vital Signs Vital Signs: 05/30/25 07:39 05/30/25 09:38 05/30/25 11:00 Temperature 98.4 F Temperature Source Temporal Pulse Rate 105 H 81 87 Respiratory Rate 18 18 16 Blood Pressure 151/102 H 147/71 H Blood Pressure Mean 118 96 Pulse Ox 97 96 100 Oxygen Delivery Method Room Air Room Air Weight Weight: 188 lb 7.924 oz Body Mass Index (BMI) 27.8 Physical Exam Const alert, oriented x3 and no apparent distress HEENT normocephalic and head/scalp atraumatic Eyes PERRL Neck full ROM Resp normal respiratory effort and clear to auscultation bilaterally Cardio regular rate and regular rhythm GI GI Narrative: Abdomen- soft, slightly distended, pain with palpation of the lower abdomen. no CVA tenderness Back/Spine no CVA tenderness Extremity normal to inspection Skin no rashes or lesions noted Neuro no focal motor deficits and no sensory deficits noted Psych mental status grossly normal, thought process normal and cooperative Results Lab / Micro Data 05/30/25 07:58 05/30/25 07:58 Labs: Laboratory Results - last 24 hr 05/30/25 07:58: WBC 10.6, RBC 4.09 L, Hgb 12.3, Hct 35.9 L, MCV 87.8, MCH 30.1, MCHC 34.3, RDW Std Deviation 42.2, RDW Coeff of Ron 13.2, Plt Count 188, MPV 8.7, Immature Gran % (Auto) 0.400, Neut % (Auto) 84.5 H, Lymph % (Auto) 6.7 L, [place] % (Auto) 7.5, Eos % (Auto) 0.5, Baso % (Auto) 0.4, Absolute Neuts (auto) 9.0 H, Absolute Lymphs (auto) 0.71 L, Nucleated RBC % 0, Sodium 139, Potassium 4.0, Chloride 103, Carbon Dioxide 26.1, Anion Gap 10, BUN 12, Creatinine 0.76, Estim Creat Clear Calc 79.63, Est GFR (MDRD) Non-Af 86, BUN/Creatinine Ratio 15.2, Glucose 152 H, Calcium 9.5, Total Bilirubin 0.67, AST 13, ALT 11, Alkaline Phosphatase 93, Total Protein 7.1, Albumin 4.1, Globulin 3.1, Albumin/Globulin Ratio 1.3, Lipase 22 05/30/25 08:53: Urine Color Yellow, Urine Clarity Clear, Urine pH 7.0, Ur Specific [place] 1.010, Urine Protein 15 H, Urine Glucose (UA) Normal, Urine Ketones Negative, Urine Occult Blood 10 H, Urine Nitrite Negative, Urine Bilirubin Negative, Urine Urobilinogen Normal, Ur Leukocyte Esterase 500 H, Urine RBC 0 SEEN, Urine WBC 10-25 SEEN, Ur Squamous Epith Cells 5-10 SEEN, Urine Bacteria 1+, Urine Mucus 0 SEEN Imaging Radiology Impression Abdomen/Pelvis CT 05/30/25 07:51 IMPRESSION: Borderline hepatomegaly and fatty infiltration of the liver. Findings in keeping with the sigmoid diverticulitis with multiple sigmoid diverticula and inflammatory changes surrounding the sigmoid colon and mesentery. No evidence of fluid collection at this time. Reading Location: [id number] Assessment & Plan Assessment/Plan (1) Acute diverticulitis: PLAN: Patient is a pleasant 69 y/o F who presents with a 1 day history of worsening lower abdominal pain. CT scan of ab/pel demonstrates acute sigmoid diverticulitis. Plan to admit patient, start IV antibiotics, bowel rest and pain control. Patient will also be started on oral stool softener to assist with constipation. Patient will remain NPO until pain subsides. Plan for repeat of CT scan of ab/pel in 48 hours with oral and IV contrast. No immediate surgical intervention is planned. Patient is aware that if her symptoms were to become worse, surgical intervention may be needed. It has also been discussed that the patient will be needing a colonoscopy in 6 weeks from her hospitalization with Dr. Alexandre. Patient and her have had the opportunity to ask and have questions answered. Patient verbally understands and agrees with the proposed plan. Charges/Coding Visit Charges Inpatient E&M: 83128 Init Hosp L3
[2025-05-30] MEDS: 0.9% Normal Saline (1000mL) 1,000 ML 125 ML IV ×2 (13:16→20:08)
[2025-05-30] MEDS: 0.9% Saline Lock 10 ML Syringe IV (15:08)
[2025-05-31] MEDS: 0.9% Normal Saline (1000mL) 1,000 ML 125 ML IV ×3 (03:51→23:44)
[2025-05-31 04:00] VITALS: BP 132/55; PULSE 74; RESP 16; TEMP 36.1; O2SAT 94
[2025-05-31] MEDS: Piperacil/Tazobactam 3.375 GM in 0.9% Normal Saline (50mL MB+) 50 ML IV ×3 (05:30→21:09)
[2025-05-31 07:02] LABS: Hematocrit 31.5 % (37-47); Hemoglobin 10.3 g/dL (12.0-15.0); Immature Granulocytes Count 0.010 X10^3/uL (0.0-0.0); Mean Corp Hgb Conc 32.7 g/dL (32-36); Mean Corpuscular Volume 91.3 fL (81-99); Mean Platelet Vol. 9.2 fl (6.2-12.0); NRBC Flagged by Analyzer 0 % (0-5); Platelet Count 173 K/mm3 (150-450); RBC Distribution Width CV 13.1 % (11.6-14.6); RBC Distribution Width SD 43.6 fl (35.1-43.9); Red Blood Count 3.45 M/mm3 (4.2-5.4); White Blood Count 6.1 K/mm3 (4.4-11.0)
[2025-05-31 07:48] LABS: Anion Gap 9 (5-15); BUN 9 mg/dL (4-19); BUN/Creat Ratio 10.9 RATIO (10-20); Calcium,Total 8.4 mg/dL (7.6-11.0); Carbon Dioxide 23.6 mmol/L (21.0-32.0); Chloride 108 mmol/L (98-108); Estimated Creatinine Clearance 73.41 ml/min (50-250); Glucose 106 mg/dL (70-99); Potassium 3.8 mmol/L (3.3-5.1)
[2025-05-31 08:25] VITALS: BP 138/63; PULSE 74; RESP 15; TEMP 36.6; O2SAT 97
--- NOTE | 2025-05-31 08:48 | PCM.PN.SRG ---
Subjective Subjective Patient evaluated resting comfortable in bed. She notes abdominal pain has improved with movement unless the area is pressed on. She denies any nausea, vomiting overnight. She denies any bowel movements. Objective Data Objective Data Vital Signs: Vital Signs Temp Pulse Resp BP Pulse Ox O2 Del Method 97.8 F 74 15 138/63 H 97 Room Air 05/31/25 08:25 05/31/25 08:25 05/31/25 08:25 05/31/25 08:25 05/31/25 08:25 05/31/25 08:25 Oxygen Delivery Method Room Air Weight: 178 lb 5.663 oz Body Mass Index (BMI) 26.4 Intake & Output: Intake and Output for Last 24 Hours 05/29/25 05/30/25 05/31/25 23:59 23:59 23:59 Intake Total 1014.58 / 1014.58 Balance 1014.58 / 1014.58 Lab / Micro Data 05/31/25 06:33 05/31/25 06:33 Labs: Laboratory Results - last 24 hr 05/30/25 08:53: Urine Color Yellow, Urine Clarity Clear, Urine pH 7.0, Ur Specific [place] 1.010, Urine Protein 15 H, Urine Glucose (UA) Normal, Urine Ketones Negative, Urine Occult Blood 10 H, Urine Nitrite Negative, Urine Bilirubin Negative, Urine Urobilinogen Normal, Ur Leukocyte Esterase 500 H, Urine RBC 0 SEEN, Urine WBC 10-25 SEEN, Ur Squamous Epith Cells 5-10 SEEN, Urine Bacteria 1+, Urine Mucus 0 SEEN 05/31/25 06:33: WBC 6.1, RBC 3.45 L, Hgb 10.3 L, Hct 31.5 L, MCV 91.3, MCH 29.9, MCHC 32.7, RDW Std Deviation 43.6, RDW Coeff of Ron 13.1, Plt Count 173, MPV 9.2, Immature Gran % (Auto) 0.200, Neut % (Auto) 75.7 H, Lymph % (Auto) 14.7 L, [place] % (Auto) 6.6, Eos % (Auto) 2.3, Baso % (Auto) 0.5, Absolute Neuts (auto) 4.6, Absolute Lymphs (auto) 0.89, Nucleated RBC % 0, Sodium 141, Potassium 3.8, Chloride 108, Carbon Dioxide 23.6, Anion Gap 9, BUN 9, Creatinine 0.83, Estim Creat Clear Calc 73.41, Est GFR (MDRD) Non-Af 77, BUN/Creatinine Ratio 10.9, Glucose 106 H, Calcium 8.4 Radiography Diagnostic Testing: Radiology Impression Abdomen/Pelvis CT 05/30/25 07:51 IMPRESSION: Borderline hepatomegaly and fatty infiltration of the liver. Findings in keeping with the sigmoid diverticulitis with multiple sigmoid diverticula and inflammatory changes surrounding the sigmoid colon and mesentery. No evidence of fluid collection at this time. Reading Location: [id number] Physical Exam GI GI Narrative: Abdomen- soft, tenderness in the low pelvic region. Hypoactive bowel sounds Assessment & Plan Assessment/Plan (1) Acute diverticulitis: PLAN: I am following this patient in conjunction with Dr. Alexandre. He has independently evaluated this patient. Labs reviewed Continue IV antibiotics Will increase to to clear liquids Add lactulose daily to regimen Plan for repeat CT scan ab/pel with contrast (PO and IV) tomorrow. Order placed No surgical intervention planned at this time Patient will need an outpatient colonoscopy approximately 6 weeks from acute flare of diverticulitis We will continue to monitor this patient Charges/Coding Visit Charges Inpatient E&M: 84404 Subs Hosp L2
--- NOTE | 2025-05-31 11:24 | CASEMGMT ---
SALDAÑA Met with patient to complete SALDAÑA form. SALDAÑA form and its content were verbally explained and patient's questions were answered to the best of my ability.? Patient voiced understanding and signed SALDAÑA form.? Patient provided a copy of signed SALDAÑA form and original placed in patient's chart.? Patient had no further questions. Rose Gutierrez, Discharge Planning Asst
[2025-05-31 13:46] VITALS: PULSE 73; RESP 16; TEMP 36.9; O2SAT 97
[2025-05-31 15:16] VITALS: BP 146/67; PULSE 70; RESP 15; TEMP 36.4; O2SAT 97
[2025-05-31] MEDS: 0.9% Saline Lock 10 ML Syringe IV (21:09)
[2025-05-31 21:23] VITALS: BP 159/87; PULSE 75; RESP 16; TEMP 36.4; O2SAT 100
[2025-06-01 02:34] VITALS: BP 149/66; PULSE 77; RESP 16; TEMP 36.3; O2SAT 99
[2025-06-01] MEDS: Piperacil/Tazobactam 3.375 GM in 0.9% Normal Saline (50mL MB+) 50 ML IV ×3 (04:53→21:26)
--- NOTE | 2025-06-01 07:00 | CT_ITS ---
PROCEDURE: ABDOMEN/PELVIS WITH CONTRAST N/A REASON FOR EXAM: ACUTE DIVERTICULITIS TECHNIQUE: Procedure Code: [id number] Modality: CT Procedure: ABDOMEN/PELVIS WITH CONTRAST Coronal and Sagittal reconstruction series were provided. CONTRAST: Isovue-300 VOLUME: 100 mL One or more dose reduction techniques were used (e.g., Automated exposure control, adjustment of the mA and/or kV according to patient size, use of iterative reconstruction technique. RADIATION DOSE SUMMARY: CTDlvol: 16.97 mGy DLP: 945.44 mGycm COMPARISON: May 30, 2025. FINDINGS: Lung bases: The lung bases are clear. Liver: Diffuse fatty infiltration. Gallbladder: Sludge or layering gallstones along its dependent portion. Spleen: Normal size. Pancreas: Normal size without evidence of mass surrounding inflammation or ductal dilation. Adrenals: Unremarkable. Kidneys: 4 mm nonobstructive calculus in the lower pole calyx of the left kidney. Bladder: Unremarkable Reproductive Organs: Normal uterine size and contour. Ovaries are unremarkable. Bowel: Once again, there is evidence of acute sigmoid diverticulitis with inflammatory changes in the surrounding mesenteric fat. Questionable 8.6 mm contained tiny fluid collection along the mesenteric side of the sigmoid mesocolon. The inflammation as essentially unchanged. Appendix: Unremarkable Lymph nodes: Unremarkable. Vasculature: Mild diffuse atherosclerotic calcifications are noted. Peritoneum / Retroperitoneum: Unremarkable Bones: Degenerative changes of the spine. CT/Abdomen/Pelvis WITH Contrast IMPRESSION: Essentially stable examination with evidence of sigmoid diverticulitis. Nonobstructive calculus in the lower pole calyx of the left kidney. Fatty infiltration of the liver. Sludge or layering gallstones seen along the dependent portion of the gallbladd er lumen. Reading Location: [id number]
[2025-06-01] MEDS: 0.9% Normal Saline (1000mL) 1,000 ML 125 ML IV ×2 (07:50→17:44)
--- NOTE | 2025-06-01 08:23 | PCM.PN.SRG ---
Subjective Subjective Patient seen and evaluated on rounds this morning. No new issues or complaints. She states that her pain in the abdomen is still there but is greatly improved compared to her level of pain on admission. She was drinking contrast for CT scan planned for this morning. Objective Data Objective Data Vital Signs: Vital Signs Temp Pulse Resp BP Pulse Ox O2 Del Method 97.4 F L 77 16 149/66 H 99 Room Air 06/01/25 02:34 06/01/25 02:34 06/01/25 02:34 06/01/25 02:34 06/01/25 02:34 06/01/25 02:34 Oxygen Delivery Method Room Air Weight: 178 lb 5.663 oz Body Mass Index (BMI) 26.4 Intake & Output: Intake and Output for Last 24 Hours 05/30/25 05/31/25 06/01/25 23:59 23:59 23:59 Intake Total 3691.67 / 3691.67 1050 / 1050 Balance 3691.67 / 3691.67 1050 / 1050 Lab / Micro Data 05/31/25 06:33 05/31/25 06:33 Physical Exam Narrative She is alert and oriented x 3. She is in no acute distress. Abdomen is soft and nondistended. Moderate tenderness to palpation mostly in the low central abdomen. No rebound or guarding Assessment & Plan Assessment/Plan (1) Acute diverticulitis: PLAN: Plan Patient is a 69-year-old female admitted with diverticulitis. Clinically she seems to be improving. A repeat CT scan with oral and IV contrast is to be performed this morning. We will await those results. Will maintain a clear liquid diet for now. She will definitely need a colonoscopy in 6 to 8 weeks.
[2025-06-01 08:37] VITALS: BP 159/83; PULSE 72; RESP 16; TEMP 36.4; O2SAT 94
[2025-06-01] MEDS: 0.9% Saline Lock 10 ML Syringe IV ×2 (09:36→21:28)
--- NOTE | 2025-06-01 10:12 | CASEMGMT ---
Dx:acute uncomplicated diverticulitis LACE:1 6-Clicks:24 Medical record reviewed and patient evaluated for identification of discharge planning needs. Based on this review, at this time criteria are not present to indicate a need for discharge planning. Will remain available to assist with discharge planning needs as identified or requested.
[2025-06-01 14:01] VITALS: BP 163/86; PULSE 73; RESP 16; TEMP 36.6; O2SAT 94
[2025-06-01 20:00] VITALS: BP 151/82; PULSE 67; RESP 16; TEMP 36.6; O2SAT 98
--- NOTE | 2025-06-01 22:14 | NURSING ---
While placing order for tums authorized by Dr. Alexandre it triggered a conflict on the patients allergy list due to aspirin. I went and asked Pt if she had any issues taking tums at home and she said she takes tums and rolaids at home without any issues.
[2025-06-02] MEDS: 0.9% Normal Saline (1000mL) 1,000 ML 125 ML IV (01:37)
[2025-06-02] MEDS: Piperacil/Tazobactam 3.375 GM in 0.9% Normal Saline (50mL MB+) 50 ML IV (06:32)
[2025-06-02 07:50] VITALS: BP 176/83; PULSE 73; RESP 17; TEMP 36.5; O2SAT 97
--- NOTE | 2025-06-02 12:03 | DCINST_ITS ---
Discharge Instructions DC O2, CPAP, BIPAP needs Home O2 Discharge instructions: No Dressing / Incision Discharge Activity: No Restrictions Dressing / Incision Call your doctor if you observe: Fever of 101 or Higher, Inability to have a bowel movement and Uncontrolled pain Follow Up Care Please Follow Up With: Amandeep Alexandre MD When: 2 weeks Test Results: Test results from this visit will be discussed in further detail at your follow- up appointment, if applicable. Discharge Plan Admission Admit Date/Time: 05/31/25 11:41 Primary Reason for Your Visit: Acute Diverticulitis Attending Provider: Amandeep Alexandre Primary Care Provider: Tre Tam Instructions Additional Instructions / Restrictions: Please check blood pressure twice daily for a week and record in a log Discharge Orders/Prescriptions Prescriptions: New amoxicillin-pot clavulanate 875-125 mg Tablet 1 tab PO BIDCM 10 Days Qty: 20 0RF Continued ergocalciferol (vitamin D2) 1,250 mcg (50,000 unit) capsule 1,250 mcg PO .COMPLEX Rx Instructions: 1,250 mcg orally [id number]; every 2 weeks lisinopril 40 mg tablet 40 mg PO DAILY acetaminophen 500 mg capsule 1,000 mg PO Q6H PRN (Reason: fever or pain) magnesium 200 mg tablet 200 mg PO DAILY Referrals / Follow Up: Tre Tam DO [Primary Care Provider, Family Practice] Disposition Disposition (needs filled in before D/C Order can be placed): Home, Self Care
--- NOTE | 2025-06-02 12:09 | PCM.DC.SUM ---
Providers Date of Admission: 05/31/25 Primary Care Physician: Dr. Tre Tam DO Reason For Visit: ACUTE UNCOMPLICATED DIVERTICULITIS Diagnosis Discharge Diagnosis (1) Acute diverticulitis: Status: Acute Code(s): K57.92 - Diverticulitis of intestine, part unspecified, without perforation or abscess without bleeding Plan: Patient is a pleasant 69 y/o F who presents with a 1 day history of worsening lower abdominal pain. CT scan of ab/pel demonstrates acute sigmoid diverticulitis. Plan to admit patient, start IV antibiotics, bowel rest and pain control. Patient will also be started on oral stool softener to assist with constipation. Patient will remain NPO until pain subsides. Plan for repeat of CT scan of ab/pel in 48 hours with oral and IV contrast. No immediate surgical intervention is planned. Patient is aware that if her symptoms were to become worse, surgical intervention may be needed. It has also been discussed that the patient will be needing a colonoscopy in 6 weeks from her hospitalization with Dr. Alexandre. Patient and her have had the opportunity to ask and have questions answered. Patient verbally understands and agrees with the proposed plan. Medications at Discharge Home Medications ergocalciferol (vitamin D2) 1,250 mcg (50,000 unit) capsule 1,250 mcg PO .COMPLEX 06/16/21 acetaminophen 500 mg capsule 1,000 mg PO Q6H PRN fever or pain 05/30/25 lisinopril 40 mg tablet 40 mg PO DAILY 05/30/25 magnesium 200 mg tablet 200 mg PO DAILY 05/30/25 amoxicillin 875 mg-potassium clavulanate 125 mg tablet 1 tab PO BIDCM 10 days #20 tabs 06/02/25 Hospital Course Operations None Procedures None Summary of Care Provided Hospital Course: Patient is 69-year-old female that was admitted to [facility] on 05/30/2025 after presenting emergency department with acute onset left lower quadrant discomfort and signs and symptoms consistent with diagnosis of acute diverticulitis. As noted this was her first presentation with this disease process. Although she had no initial evidence of perforation nor leukocytosis she was markedly tender and felt to be an appropriate for outpatient management. She was initially held n.p.o. then her diet was gradually advanced as her abdominal exam improved. [address] her admission [address] imaging was repeated with enteric contrast as I had wanted to better examine the pelvic area where I was concern for possible extraluminal loculation as well as follow-up her initial scan. Radiology determined this latter picture to be largely consistent with the former, but did acknowledge the presence of a equivocal area 8 mm in diameter that possibly represented a contained perforation. At this size and was patient's clinical improvements no further intervention was deemed necessary. Patient was maintained on IV antibiotic therapy and hospital day 4 she reported feeling much better. Her abdominal exam was largely benign and we discussed transition to oral antibiotics with further outpatient treatment. Also described expectation for outpatient follow-up and reminded her that we would plan for diagnostic colonoscopy in 6 weeks post resolution of her diverticulitis. Patient had several questions related to diet, in particular. These were answered and she was provided a diet guideline for her use at home. She was then granted discharged home with prescription for an iron 75 mg Augmentin to be taken twice daily x 10 days. Physical Exam Const alert, oriented x3 and no apparent distress Resp normal respiratory effort GI GI Narrative: Soft, minimally tender to palpation in the left lower quadrant, nondistended Weight / BMI Weight Weight: 178 lb 5.663 oz Body Mass Index (BMI) 26.4 ABG / Lab / Microbiology Data 05/31/25 06:33 05/31/25 06:33 Microbiology: Microbiology 05/30/25 08:53 Urine, Clean Catch Urine Culture - Final Mixed Gram Positive Organisms D/C Instructions Call your doctor if you observe: Fever of 101 or Higher, Inability to have a bowel movement and Uncontrolled pain DC O2, CPAP, BIPAP Needs Home O2 Discharge instructions: No Please Follow Up With: Amandeep Alexandre MD When: 2 weeks Meaningful Use Info Meaningful Use Meaningful Use Diagnoses (Choose all that apply): None applicable Discharge Plan Admission Admit Date/Time: 05/31/25 11:41 Primary Reason for Your Visit: Acute Diverticulitis Attending Provider: Amandeep Alexandre Primary Care Provider: Tre Tam Instructions Additional Instructions / Restrictions: Please check blood pressure twice daily for a week and record in a log Discharge Orders/Prescriptions Prescriptions: New amoxicillin-pot clavulanate 875-125 mg Tablet 1 tab PO BIDCM 10 Days Qty: 20 0RF Continued ergocalciferol (vitamin D2) 1,250 mcg (50,000 unit) capsule 1,250 mcg PO .COMPLEX Rx Instructions: 1,250 mcg orally [id number]; every 2 weeks lisinopril 40 mg tablet 40 mg PO DAILY acetaminophen 500 mg capsule 1,000 mg PO Q6H PRN (Reason: fever or pain) magnesium 200 mg tablet 200 mg PO DAILY Referrals / Follow Up: Tre Tam DO [Primary Care Provider, Family Practice] Disposition Disposition (needs filled in before D/C Order can be placed): Home, Self Care Charges/Coding Visit Charges Inpatient E&M: 46116 Disch Hosp
--- NOTE | 2025-06-02 13:01 | PHA.DC_ITS ---
Pharmacy [facility] has performed discharge medication counseling for this patient. The patient was counseled on the following discharge medications and changes in medications for homegoing review. - Augmentin 875/125 mg tablet The Reason for Use, instructions for use, and potential side effects were reviewed for all new medications. The patient's questions regarding all of their medications were answered. The patient was able to verbally demonstrate an understanding of their discharge medications. Medications at Discharge Home Medications ergocalciferol (vitamin D2) 1,250 mcg (50,000 unit) capsule 1,250 mcg PO .COMPLEX 06/16/21 acetaminophen 500 mg capsule 1,000 mg PO Q6H PRN fever or pain 05/30/25 lisinopril 40 mg tablet 40 mg PO DAILY 05/30/25 magnesium 200 mg tablet 200 mg PO DAILY 05/30/25 amoxicillin 875 mg-potassium clavulanate 125 mg tablet 1 tab PO BIDCM 10 days #20 tabs 06/02/25
== END 2025-06-02 13:56 | disposition home or self-care (01) | DRG 392 ==
LOC: ED 08:32 → MS3 11:38
PROVIDERS: Admitting Provider Surgery; Emergency Provider Surgery; PCP Family Medicine; Visit Provider Surgery
DX: K57.20 Diverticulitis of large intestine with perforation and abscess without bleeding (principal); N39.0 Urinary tract infection, site not specified; R16.0 Hepatomegaly, not elsewhere classified; K76.0 Fatty (change of) liver, not elsewhere classified; I10 Essential (primary) hypertension; K59.00 Constipation, unspecified; Z79.899 Other long term (current) drug therapy; Z87.440 Personal history of urinary (tract) infections
CPT/HCPCS: 36415; 74177; 80048; 80053; 81001; 83690; 85025; 87086; 87088; 97802; 99284; Q9967; A4216; J2405